=== PATIENT | male | born 1940 | race Caucasian/White ===

== ENCOUNTER 2022-04-19 07:49 | Emergency (ER) | payer MEDICARE, SELFPAY ==
--- NOTE | 2022-04-19 07:45 | RT.EKG_ITS ---
APPROVED REPORT Exam: Resting ECG Reason for Exam: shoulder/back pain Patient Location: E HR:80 bpm ECG Measurements Heart Rate 80 AXIS RI [id number] P [id number] QRSd 159 QRS 100 QT 417 T -20 QTc 482 Conclusion Atrial flutter with predominant 3:1 AV block...A-rate 238, multiple Ps RBBB and LPFB...QRSd >120mS, axis(90,210) Inferior infarct, age indeterminate...Q>35mS, T neg, II III aVF
[2022-04-19 07:54] VITALS: BP 206/82; PULSE 86; RESP 18; TEMP 36.7; O2SAT 97
[2022-04-19 07:58] VITALS: BP 155/111; PULSE 87
[2022-04-19 07:59] VITALS: BP 173/107; PULSE 79
--- NOTE | 2022-04-19 08:33 | ED.GENADUL_ITS ---
Discharge Plan Disposition Patient Disposition: Home Condition: Stable Discharge Details Clinical Impression: Left paraspinal back pain, Hypertension, Hypomagnesemia Primary Care Provider: Anamaria Garcia ED Provider: Harshil Whitehead Home Meds and New Rx's Prescriptions: New cyclobenzaprine 5 mg tablet 5 mg PO TID PRN (Reason: muscle spasm) Qty: 15 0RF Continued azathioprine 50 MG tablet 150 mg PO DAILY clopidogrel [Plavix] 75 MG tablet 75 mg PO DAILY aspirin [Aspir-81] 81 MG tablet,delayed release (DR/EC) 81 mg PO DAILY levothyroxine 100 MCG tablet 100 mcg PO DAILY methotrexate sodium 2.5 MG tablet 15 mg PO DIRECTED nitroglycerin [Nitrostat] 0.4 MG tablet, sublingual 0.4 mg Sublingual DIRECTED PRN folic acid 1 MG tablet 1 mg PO DAILY dorzolamide-timolol 10 ML drops 10 ml OD BID geriatric ossiubwj-qevg-tebs [Complete Senior] 1 EACH tablet 1 ea PO DAILY cholecalciferol (vitamin D3) 1,000 UNIT tablet 1,000 unit PO BID acetaminophen [Tylenol] 325 MG tablet 650 mg PO Q4H PRN PRN0RF ipratropium-albuterol 3 ML solution for nebulization 3 ml UPD Q6H PRN PRN0RF polyethylene glycol 3350 17 GM powder in packet 17 gm PO DAILY PRN PRN (Reason: Constipation) 0RF docusate sodium [Colace] 100 MG capsule 100 mg PO TID PRN PRN0RF alum-mag hydroxide-simeth [Mag-Al Plus] 30 ML suspension 30 ml PO Q2H PRN PRN0RF insulin aspart U-100 [Novolog Flexpen U-100 Insulin] 300 UNITS/3 ML insulin pen 0 units Sub-Q 0800,1200,1700 0RF losartan 25 MG tablet 25 mg PO DAILY Qty: 0 0RF Rx Instructions: CURRENTLY ON HOLD Humulin N NPH U-100 Insulin 100 UNIT/ML suspension 100 unit SQ DIRECTED Qty: 0 0RF Label Comments: sliding scale Rx Instructions: CURRENTLY ON HOLD furosemide 20 MG tablet 20 mg PO DAILY Qty: 0 0RF Rx Instructions: CURRENTLY ON HOLD metformin 500 mg tablet 1 tab PO BID isosorbide mononitrate 30 mg tablet extended release 24 hr 1 tab PO DAILY prednisone 5 mg tablet 1 tab PO DAILY pantoprazole 20 mg tablet,delayed release (DR/EC) 1 tab PO DAILY gabapentin 100 mg capsule 1 cap PO TID Label Comments: TAKE ONE CAPSULE BY MOUTH THREE TIMES A DAY FOR NECK AND ARM PAIN /TINGLING metoprolol succinate 25 mg tablet extended release 24 hr 1 tab PO DAILY oxycodone 5 mg tablet 1 tab PO Q4H PRN Label Comments: TAKE ONE TABLET BY MOUTH EVERY 4 HOURS NEEDED FOR PAIN diclofenac sodium 1 % gel 1 applic TOPICAL BID Discharge Instructions Instructions: Hypomagnesemia (ED), Back Pain (ED) Additional Instructions: Your blood pressure today was elevated. Please be sure to follow-up with your primary care physician regarding this. Take your blood pressure medicine as prescribed. Your magnesium was slightly low today. You were given magnesium s upplementation. Please be sure to discuss this with your primary care physician. Please take ibuprofen 400 mg every 6-8 hours for the next 5 days to help with back pain. Use lidocaine patches. These are available [id number]-[id number]. Dose according to label. Please contact your primary care physician and applications intern to arrange follow- up. Call today. Return to the ER immediately for any worsening or new concerning symptoms. Referrals: Anamaria Garcia [Primary Care Provider] - Medical Decision Making -- 81yo male with multiple medical problems including history of coronary artery disease, atrial fibrillation, CHF, CVA, insulin-dependent diabetes, GERD, hypertension, inflammatory myopathy, here with pain in his left thoracic paraspinal/scapular area for the past 2 weeks with associated tingling in his left hand first webspace. Patient has focal tenderness left thoracic paraspinal that reproduces his pain. Patient had nondiagnostic cardiac work-up including negative stress test at [facility] for this discomfort. Presentation is consistent with likely musculoskeletal back pain with T1 nerve root irritation. Plan to treat with Toradol 15 mg IM and lidocaine patch. 855 --I obtained outside hospital records from [facility] and reviewed recent PCP visit documentation and recent office visit with rheumatology. Substantial additional medical history obtained including history of chronic necrotizing myositis with note of increasing CK. Will check labs including CK, CBC and chemistry. Plan to consult with rheumatology. 1279-- I spoke with applications intern on-call at [facility], she reviewed the patient's medical record, I discussed ED presentation and course, she recommends CT of the thoracic spine to rule out fracture given chronic prednisone use. She suggested potentially prescribing Flexeril and additional lidocaine patches. She recommends close outpatient follow-up and that the patient call her office to arrange timely follow-up. CT of the thoracic spine was interpreted by radiology: No fracture. No evidence of compression fracture nor other fractures of the thoracic spinal column.? No central spinal canal stenosis.? All results were discussed with the patient. Usual customary discharge instructions reviewed HPI General Mode of arrival: ambulatory . Date/Time Provider Initiated Documentation: 04/19/22 08:11 . Limitations to Documentation: no limitations . Information obtained by: patient . HPI Narrative: 81yo male here with chief complaint of left shoulder pain. Patient notes about 2 weeks ago he developed pain in his left shoulder. Pain is been present since onset. Pain described as an ache. He was initially concerned that it may be his heart and sought care at [facility]. He had a full cardiac work-up that was negative including stress test. Pain has continued. He was treating it with oxycodone that was prescribed by his PCP which did seem to help. He has run out of oxycodone. Patient denies associated shortness of breath or chest pain. He does note some associated paresthesia in his left hand first webspace. Related Data Home Medications Medication Instructions Recorded Confirmed aspirin 81 mg tablet,delayed 81 mg PO DAILY 10/24/17 04/19/22 release (Aspir-) azathioprine 50 mg tablet 150 mg PO DAILY 10/24/17 04/19/22 cholecalciferol (vitamin D3) 25 1,000 unit PO BID 10/24/17 04/19/22 mcg (1,000 unit) tablet clopidogrel 75 mg tablet (Plavix) 75 mg PO DAILY 10/24/17 04/19/22 dorzolamide 22.3 mg-timolol 6.8 10 ml OD BID 10/24/17 04/19/22 mg/mL eye drops folic acid 1 mg tablet 1 mg PO DAILY 10/24/17 10/24/17 geriatric eyccisvk-ancs-lwka 1 ea PO DAILY 10/24/17 10/24/17 (Complete Senior tablet) levothyroxine 100 mcg tablet 100 mcg PO DAILY 10/24/17 04/19/22 methotrexate sodium 2.5 mg tablet 15 mg PO DIRECTED 10/24/17 10/24/17 nitroglycerin 0.4 mg sublingual 0.4 mg sublingual DIRECTED PRN 10/24/17 04/19/22 tablet (Nitrostat) acetaminophen 325 mg tablet 650 mg PO Q4H PRN PRN 10/26/17 04/19/22 (Tylenol) aluminum-mag hydroxide-simethicone 30 ml PO Q2H PRN PRN 10/26/17 04/19/22 200 mg-200 mg-20 mg/5 mL oral susp (Mag-Al Plus) docusate sodium 100 mg capsule 100 mg PO TID PRN PRN 10/26/17 04/19/22 (Colace) furosemide 20 mg tablet 20 mg PO DAILY ##0 10/26/17 10/24/17 insulin NPH isoph U-100 human 100 100 unit SQ DIRECTED ##0 10/26/17 04/19/22 unit/mL subcutaneous suspension (Humulin N NPH U-100 Insulin (isophane susp)) insulin aspart U-100 100 unit/mL 0 units (0 mL) subcut 10/26/17 (3 mL) subcutaneous pen (Novolog 0800,1200,1700 Flexpen U-100 Insulin aspart) ipratropium 0.5 mg-albuterol 3 mg 3 ml UPD Q6H PRN PRN 10/26/17 (2.5 mg base)/3 mL nebulization soln losartan 25 mg tablet 25 mg PO DAILY ##0 10/26/17 04/19/22 polyethylene glycol 3350 17 gram 17 gm PO DAILY PRN PRN Constipation 10/26/17 04/19/22 oral powder packet cyclobenzaprine 5 mg tablet 5 mg PO TID PRN muscle spasm #15 04/19/22 tabs diclofenac sodium 1 % topical gel 1 applic topical BID 04/19/22 04/19/22 gabapentin 100 mg capsule 1 cap PO TID 04/19/22 04/19/22 isosorbide mononitrate 30 mg 1 tab PO DAILY 04/19/22 04/19/22 tablet,extended release 24 hr metformin 500 mg tablet 1 tab PO BID 04/19/22 04/19/22 metoprolol succinate 25 mg 1 tab PO DAILY 04/19/22 04/19/22 tablet,extended release 24 hr oxycodone 5 mg tablet 1 tab PO Q4H PRN 04/19/22 04/19/22 pantoprazole 20 mg tablet,delayed 1 tab PO DAILY 04/19/22 04/19/22 release prednisone 5 mg tablet 1 tab PO DAILY 04/19/22 04/19/22 Previous Rx's Medication Instructions Recorded acetaminophen 325 mg tablet 650 mg PO Q4H PRN PRN 10/26/17 (Tylenol) aluminum-mag hydroxide-simethicone 30 ml PO Q2H PRN PRN 10/26/17 200 mg-200 mg-20 mg/5 mL oral susp (Mag-Al Plus) docusate sodium 100 mg capsule 100 mg PO TID PRN PRN 10/26/17 (Colace) furosemide 20 mg tablet 20 mg PO DAILY ##0 10/26/17 insulin NPH isoph U-100 human 100 100 unit SQ DIRECTED ##0 10/26/17 unit/mL subcutaneous suspension (Humulin N NPH U-100 Insulin (isophane susp)) insulin aspart U-100 100 unit/mL 0 units (0 mL) subcut 10/26/17 (3 mL) subcutaneous pen (Novolog 0800,1200,1700 Flexpen U-100 Insulin aspart) ipratropium 0.5 mg-albuterol 3 mg 3 ml UPD Q6H PRN PRN 10/26/17 (2.5 mg base)/3 mL nebulization soln losartan 25 mg tablet 25 mg PO DAILY ##0 10/26/17 polyethylene glycol 3350 17 gram 17 gm PO DAILY PRN PRN Constipation 10/26/17 oral powder packet cyclobenzaprine 5 mg tablet 5 mg PO TID PRN muscle spasm #15 04/19/22 tabs Allergies Allergy/AdvReac Type Severity Reaction Status Date / Time atorvastatin [From Lipitor] Allergy Unverified 04/19/22 08:02 General Stated Complaint: Orthopedic KLEBER: 3 Review of Systems All systems reviewed & are unremarkable except as noted in HPI and below Constitutional Constitutional: Denies fever(s) Cardiovascular Cardiovascular: Denies chest pain and Denies dyspnea Respiratory Respiratory: Denies dyspnea Gastrointestinal Gastrointestinal: Denies abdominal pain PFSH All Active Problems (Updated 04/19/22 @ 12:31 by Harshil Whitehead MD) Left paraspinal back pain (Acute) Hypertension (Chronic) Hypomagnesemia (Acute) Social History Smoking/Tobacco Use Status: Never Smoking risk assessment performed?: Yes Alcohol Intake: never Drug use: Never Substance use type: does not use Do you feel safe at home: Yes Do you feel safe in your relationship?: Yes Exam Const General: cooperative and no acute distress HENMT Mouth: moist mucous membranes Eyes Conjunctivae: normal conjunctivae Sclera: normal sclerae Neck Neck: trachea midline and supple Resp Auscultation: clear to auscultation bilaterally, no rales, no rhonchi and no wheezes Cardio Rate: regular rate and not tachycardic Rhythm: regular rhythm GI Palpation: soft, not firm, no guarding, no masses, not rigid and nontender Back/Spine/Pelvis Back: No erythema, No warmth and other (no edema) Cervical Spine: No cervical spinal tenderness Thoracic/Lumbar Spine: paraspinal tenderness (left upper thoracic focally tender ), No thoracic spinal tenderness and No lumbar spinal tenderness Skin General skin exam: no rashes or lesions noted Neuro General: patient alert, patient awake and tone normal Extrem General: no edema Left upper extremity: shoulder/upper arm Details: inspection abnormal and normal ROM; no tenderness and no swelling and hand Details: neuromotor exam normal and neurosensory exam normal Psych Appearance: grossly normal Mental Status: mental status grossly normal Course Vital Signs Vital signs: Vital Signs Temperature 36.7 C 04/19/22 07:54 Pulse 86 04/19/22 07:54 Respiratory Rate 18 04/19/22 07:54 Blood Pressure 206/82 H 04/19/22 07:54 Pulse Oximetry 97 04/19/22 07:54 Temperature 36.7 C 04/19/22 07:54 Temperature Source Temporal Artery Scan 04/19/22 07:54 Pulse 86 04/19/22 07:54 Respiratory Rate 18 04/19/22 07:54 Respiratory Effort Non-Labored 04/19/22 08:00 Blood Pressure 206/82 H 04/19/22 07:54 Blood Pressure Position Sitting 04/19/22 07:54 Pulse Oximetry 97 04/19/22 07:54 Oxygen Delivery Method Room Air 04/19/22 07:54 Oxygen Flow Rate 0 04/19/22 07:54 Pain Level 8 04/19/22 07:54
[2022-04-19] MEDS: Ketorolac 15 MG/ML VIAL IM (08:36)
[2022-04-19] MEDS: Lidocaine 5% Patch 1 PATCH TP (08:36)
[2022-04-19 09:03] LABS: ESR 12 mm/hr (0-20)
[2022-04-19 09:05] LABS: Abs Immature Grans 0.04 10^3/uL (0.0-0.06); Absolute Basophil Count 0.05 10^3/uL (0.0-0.2); Absolute Eosinophil Count 0.35 10^3/uL (0.0-0.7); Absolute Lymphocyte Count 0.69 10^3/uL (1.2-3.4); Absolute Monocyte Count 0.75 10^3/uL (0.1-0.8); Absolute Neutrophil Count 6.46 10^3/uL (1.2-6.7); Basophils % 0.6; Eosinophils % 4.2; HCT 42.4 % (40.0-50.0); Immature Grans % 0.5; Lymphocytes % 8.3; MCH 29.9 pg (27.0-33.0); MCV 91 fL (80-95); MPV 9.3 fL (8.0-11.0); Neutrophils % 77.4; Platelet Count 197 10^3/uL (130-400); RBC 4.68 10^6/uL (4.36-5.78); RDW 13.3 % (11.8-14.1); RDW-SD 42.8 fL; WBC 8.34 10^3/uL (4.4-10.8)
[2022-04-19 09:22] LABS: ALT 30 U/L (16-63); AST 33 U/L (15-37); Albumin 3.5 g/dL (3.4-5.0); Alkaline Phosphatase 50 U/L (46-116); Anion Gap 6.6 mmol/L (3-11); BUN 16 mg/dL (7-18); Bilirubin, Total 0.4 mg/dL (0.2-1.0); C-Reactive Protein 2.83 mg/dL (0.0-0.3); CO2 31.4 mmol/L (21.0-32.0); CREATININE 1.2 mg/dL (0.70-1.30); Calcium 9.2 mg/dL (8.5-10.1); Chloride 102 mmol/L (98-107); Creatine Kinase 393 U/L (39-308); Estimated GFR 61.52 (mL/min/1.73m2); Glucose 129 mg/dL (74-106); Magnesium 1.7 mg/dL (1.8-2.4); Potassium 3.7 mmol/L (3.5-5.1); Sodium 140 mmol/L (136-145); Total Protein 7.1 g/dL (6.4-8.2)
--- NOTE | 2022-04-19 09:51 | CMPROGNOTE_ITS ---
- If Service Date Differs Date of service: 04/19/22 Time of Service: 09:51 Care Management Progress Note Russell is seen in the ED for musculoskeletal back pain with T1 nerve root irritation. At the request of ED provider, TRUMAN meets with Mr. Eng to discuss transferring his primary care physician from Dr. Garcia at [facility] to a local provider. TRUMAN assists Mr. Eng in contacting the [facility] to begin the process of transferring his care.
[2022-04-19 10:25] VITALS: BP 169/83; PULSE 71; TEMP 36.7; O2SAT 97
--- NOTE | 2022-04-19 12:07 | DI.CT_ITS ---
Exam(s) CT THORACIC SPINE WO EXAM: CT THORACIC SPINE WO CLINICAL HISTORY: left t1-4 tenderness, chronic prednisone use. TECHNIQUE: Imaging Protocol: Axial computed tomography images with coronal and sagittal reformatted images were created and reviewed. CONTRAST MATERIAL: None COMPARISON: CT CHEST WITHOUT CONTRAST from 10/25/2017 FINDINGS: Bones: There are no compression fractures of the thoracic vertebrae.. No listhesis. No central nor foraminal stenosis evident. No lytic nor blastic osseous lesions. Soft tissues: Large cyst is in noted in the superior pole right kidney. Unchanged from CT scan of 2017. IMPRESSION: No evidence of compression fracture nor other fractures of the thoracic spinal column. No central sp inal canal stenosis. Report called by myself to ER RADIATION DOSE DELIVERED: 1,120.26mGy.cm Total DLP DATA REPOSITORY: All CT scans at this facility are submitted to the National Radiology Data Registry (NRDR) Dose Index Registry (DIR) with the [employer] ([employer]). RADIATION OPTIMIZATION: All CT scans at this facility use at least one of these dose optimization te chniques: automated exposure control; mA and/or kV adjustment per patient size (includes targeted exa ms where dose is matched to clinical indication); or iterative reconstruction.
[2022-04-19 12:23] VITALS: BP 174/83; PULSE 65; TEMP 36.4; O2SAT 98
[2022-04-19] MEDS: Magnesium Oxide 400 MG TAB 800 MG PO (12:48)
== END 2022-04-19 12:58 | disposition home or self-care (01) ==
PROVIDERS: Emergency Provider Student in an Organized Health Care Education/Training Program; PCP Internal Medicine
DX: M54.6 Pain in thoracic spine (principal); M25.512 Pain in left shoulder; E83.42 Hypomagnesemia; I11.0 Hypertensive heart disease with heart failure; I50.9 Heart failure, unspecified; I25.10 Atherosclerotic heart disease of native coronary artery without angina pectoris; I48.91 Unspecified atrial fibrillation; E11.9 Type 2 diabetes mellitus without complications; Z79.4 Long term (current) use of insulin; Z79.82 Long term (current) use of aspirin; Z79.84 Long term (current) use of oral hypoglycemic drugs; Z86.73 Personal history of transient ischemic attack (TIA), and cerebral infarction without residual deficits
CPT/HCPCS: 36415; 36416; 80053; 82550; 82962; 85652; 93005; 96372; 99284; 72128; 83735; 85025; 86140; 93010; 99285; J1885

== ENCOUNTER 2022-04-22 22:35 | Emergency (ER) | payer MEDICARE, SELFPAY ==
[2022-04-22] VITALS (12 sets, daily range): BP systolic 187–207; BP diastolic 80–120; PULSE 74–85; RESP 14–21; TEMP 36.6; O2SAT 92–100
--- NOTE | 2022-04-22 22:30 | RT.EKG_ITS ---
APPROVED REPORT Exam: Resting ECG Reason for Exam: left shoulder pain Patient Location: E HR:79 bpm ECG Measurements Heart Rate 79 AXIS MI 172 P -11 QRSd 158 QRS -65 QT 431 T 67 QTc 496 Conclusion Sinus rhythm. Right bundle branch block..
--- NOTE | 2022-04-22 22:59 | W.ED.GENAD ---
Discharge Plan Disposition Patient Disposition: Home Condition: Improving Discharge Details Clinical Impression: Chronic thoracic back pain, Thoracic radiculopathy Primary Care Provider: Anamaria Garcia ED Provider: Laura Junior Home Meds and New Rx's Prescriptions: New prednisone 20 mg tablet See Rx Instructions .ROUTE .COMPLEX Qty: 18 0RF Rx Instructions: Take 3 tabs daily for 3 days, then 2 tabs daily for 3 days, then 1 tab daily for 3 days. diazepam 5 mg tablet 5 mg PO TID PRN (Reason: muscle spasm) Qty: 10 0RF No Action azathioprine 50 MG tablet 150 mg PO DAILY clopidogrel [Plavix] 75 MG tablet 75 mg PO DAILY aspirin [Aspir-81] 81 MG tablet,delayed release (DR/EC) 81 mg PO DAILY levothyroxine 100 MCG tablet 100 mcg PO DAILY methotrexate sodium 2.5 MG tablet 15 mg PO DIRECTED nitroglycerin [Nitrostat] 0.4 MG tablet, sublingual 0.4 mg Sublingual DIRECTED PRN folic acid 1 MG tablet 1 mg PO DAILY dorzolamide-timolol 10 ML drops 10 ml OD BID Complete Senior 1 EACH tablet 1 ea PO DAILY cholecalciferol (vitamin D3) 1,000 UNIT tablet 1,000 unit PO BID acetaminophen [Tylenol] 325 MG tablet 650 mg PO Q4H PRN PRN0RF ipratropium-albuterol 3 ML solution for nebulization 3 ml UPD Q6H PRN PRN0RF polyethylene glycol 3350 17 GM powder in packet 17 gm PO DAILY PRN PRN (Reason: Constipation) 0RF docusate sodium [Colace] 100 MG capsule 100 mg PO TID PRN PRN0RF alum-mag hydroxide-simeth [Mag-Al Plus] 30 ML suspension 30 ml PO Q2H PRN PRN0RF insulin aspart U-100 [Novolog Flexpen U-100 Insulin] 300 UNITS/3 ML insulin pen 0 units Sub-Q 0800,1200,1700 0RF losartan 25 MG tablet 25 mg PO DAILY Qty: 0 0RF Rx Instructions: CURRENTLY ON HOLD Humulin N NPH U-100 Insulin 100 UNIT/ML suspension 100 unit SQ DIRECTED Qty: 0 0RF Label Comments: sliding scale Rx Instructions: CURRENTLY ON HOLD furosemide 20 MG tablet 20 mg PO DAILY Qty: 0 0RF Rx Instructions: CURRENTLY ON HOLD metformin 500 mg tablet 1 tab PO BID prednisone 5 mg tablet 1 tab PO DAILY pantoprazole 20 mg tablet,delayed release (DR/EC) 1 tab PO DAILY gabapentin 100 mg capsule 1 cap PO TID Label Comments: TAKE ONE CAPSULE BY MOUTH THREE TIMES A DAY FOR NECK AND ARM PAIN /TINGLING metoprolol succinate 25 mg tablet extended release 24 hr 1 tab PO DAILY diclofenac sodium 1 % gel 1 applic TOPICAL BID Discharge Instructions Additional Instructions: It is suspected that your pain is musculoskeletal or neuropathic in origin. Prescriptions for steroids and muscle relaxers have been sent electronically to your pharmacy. Take Tylenol as needed and directed for pain. Take the oxycodone for pain not relieved with Tylenol or muscle relaxers. Take caution when taking the oxycodone and Valium together as this can cause increased drowsiness and increased risk of respiratory depression and . You have been placed on care management's list to arrange for a follow-up appointment for reevaluation and to establish care at [facility] and for referral for outpatient MRI if indicated. Return to the emergency department with any worsening or new concerning symptoms. Discharge Data Discharge Date/Time-TO BE ENTERED AT DEPARTURE: 04/23/22 02:08 Discharge Physician: Laura Junior Medical Decision Making 2255 -- 81yo M w/ a h/o multiple medical problems including history of coronary artery disease, atrial fibrillation, CHF, CVA, insulin-dependent diabetes, GERD, hypertension, inflammatory myopathy seen here 3 days ago for the same complaint presents with pain between shoulder blades moving up to his neck. Blood pressure hypertensive, may be a component of pain, will continue to monitor. Patient had lab work which noted low magnesium and a CT thoracic spine which was negative for acute findings when seen here in the ED 3 days ago for the same complaint. He was sent home with Lidoderm patches and Flexeril. Patient has tenderness to palpation of the midline T-spine in the mid scapular line. He also has bilateral paraspinal Thoracics tenderness. The area appears normal to inspection without rash, cellulitis or trauma. The pain is reproducible with left head sidebending, rotation and extension of head. Pain is also reproducible with movement in bed and movement of left upper extremity. Pain appears consistent with a musculoskeletal or neuropathic origin. Discussed with patient that he likely needs an MRI of his thoracic spine. Considering his age and history, will obtain an EKG and chest x-ray. As he had labs done 3 days ago, do not see an indication for repeat lab work at this time. History of presentation does not appear consistent with ACS, PE or dissection. Will give a dose of oral oxycodone, Valium and prednisone and reassess. 0130 --patient reassessed and he feels much better and feels comfortable going home. Prescriptions for steroids and muscle relaxers sent electronically to his pharmacy. We will give oxycodone bottle to go for breakthrough pain. Patient was placed on care management's list to ensure that he is getting close follow-up with plan to establish care with [facility] and for consideration for outpatient MRI if his symptoms persist or worsen. Usual and customary return precautions given prior to discharge. His blood pressure is high at 193/80. He states he did not take his blood pressure medication today. He denies any anterior chest pain or headache. Medical Records Medical records reviewed: Yes I reviewed the patient's medical records. ECG Data Attestation: I personally reviewed and interpreted this ECG (s) as follows: Interpretation: Rate of 79, sinus, right bundle branch block, no STEMI, no change from previous EKG. HPI General Mode of arrival: ambulatory. Date/Time Provider Initiated Documentation: 04/22/22 22:47. Limitations to Documentation: no limitations. Information obtained by: patient. HPI Narrative: Patient is a 81-year-old male with a history of multiple medical problems including history of coronary artery disease, atrial fibrillation, CHF, CVA, insulin-dependent diabetes, GERD, hypertension, inflammatory myopathy presents the ED with a complaint of pain between shoulder blades now radiating up to his neck. Patient was seen here 3 days ago for the same complaint and had lab work which noted low magnesium and a CT thoracic spine which is negative for acute findings and he was discharged home with Lidoderm patches and Flexeril. Patient states for the past month he has had mid scapular back pain with radiation to his left arm which also causes tingling in his left hand. He states the pain is worse with movement of his arm and head. He denies any known injury. He states he is right-handed. He states he saw his primary care doctor Dr. Garcia for this complaint a month ago and was prescribed steroids without significant relief. He denies any relief with the Lidoderm patches and Flexeril. Patient drove himself to the ED but states he can get a ride home. He denies any fever, sore throat, cough, chest pain, difficulty breathing, abdominal pain, vomiting, diarrhea or dizziness. Patient took Tylenol 4 hours ago without relief. Related Data Home Medications Medication Instructions Recorded Confirmed aspirin 81 mg tablet,delayed 81 mg PO DAILY 10/24/17 04/23/22 release (Aspir-) azathioprine 50 mg tablet 150 mg PO DAILY 10/24/17 04/23/22 cholecalciferol (vitamin D3) 25 1,000 unit PO BID 10/24/17 04/23/22 mcg (1,000 unit) tablet clopidogrel 75 mg tablet (Plavix) 75 mg PO DAILY 10/24/17 04/23/22 dorzolamide 22.3 mg-timolol 6.8 10 ml OD BID 10/24/17 04/23/22 mg/mL eye drops folic acid 1 mg tablet 1 mg PO DAILY 10/24/17 04/23/22 geriatric [id number] 1 ea PO DAILY 10/24/17 04/23/22 (Complete Senior tablet) levothyroxine 100 mcg tablet 100 mcg PO DAILY 10/24/17 04/23/22 methotrexate sodium 2.5 mg tablet 15 mg PO DIRECTED 10/24/17 04/23/22 nitroglycerin 0.4 mg sublingual 0.4 mg sublingual DIRECTED PRN 10/24/17 04/23/22 tablet (Nitrostat) acetaminophen 325 mg tablet 650 mg PO Q4H PRN PRN 10/26/17 04/23/22 (Tylenol) aluminum-mag hydroxide-simethicone 30 ml PO Q2H PRN PRN 10/26/17 04/23/22 200 mg-200 mg-20 mg/5 mL oral susp (Mag-Al Plus) docusate sodium 100 mg capsule 100 mg PO TID PRN PRN 10/26/17 04/23/22 (Colace) furosemide 20 mg tablet 20 mg PO DAILY ##0 10/26/17 04/23/22 insulin NPH isoph U-100 human 100 100 unit SQ DIRECTED ##0 10/26/17 04/23/22 unit/mL subcutaneous suspension (Humulin N NPH U-100 Insulin (isophane susp)) insulin aspart U-100 100 unit/mL 0 units (0 mL) subcut 10/26/17 04/23/22 (3 mL) subcutaneous pen (Novolog 0800,1200,1700 Flexpen U-100 Insulin aspart) ipratropium 0.5 mg-albuterol 3 mg 3 ml UPD Q6H PRN PRN 10/26/17 04/23/22 (2.5 mg base)/3 mL nebulization soln losartan 25 mg tablet 25 mg PO DAILY ##0 10/26/17 04/23/22 polyethylene glycol 3350 17 gram 17 gm PO DAILY PRN PRN Constipation 10/26/17 04/23/22 oral powder packet diclofenac sodium 1 % topical gel 1 applic topical BID 04/19/22 04/23/22 gabapentin 100 mg capsule 1 cap PO TID 04/19/22 04/23/22 metformin 500 mg tablet 1 tab PO BID 04/19/22 04/23/22 metoprolol succinate 25 mg 1 tab PO DAILY 04/19/22 04/23/22 tablet,extended release 24 hr pantoprazole 20 mg tablet,delayed 1 tab PO DAILY 04/19/22 04/23/22 release prednisone 5 mg tablet 1 tab PO DAILY 04/19/22 04/23/22 diazepam 5 mg tablet 5 mg PO TID PRN muscle spasm #10 04/23/22 tabs prednisone 20 mg tablet See Rx Instructions .Route 04/23/22 .COMPLEX #18 tabs Previous Rx's Medication Instructions Recorded acetaminophen 325 mg tablet 650 mg PO Q4H PRN PRN 10/26/17 (Tylenol) aluminum-mag hydroxide-simethicone 30 ml PO Q2H PRN PRN 10/26/17 200 mg-200 mg-20 mg/5 mL oral susp (Mag-Al Plus) docusate sodium 100 mg capsule 100 mg PO TID PRN PRN 10/26/17 (Colace) furosemide 20 mg tablet 20 mg PO DAILY ##0 10/26/17 insulin NPH isoph U-100 human 100 100 unit SQ DIRECTED ##0 10/26/17 unit/mL subcutaneous suspension (Humulin N NPH U-100 Insulin (isophane susp)) insulin aspart U-100 100 unit/mL 0 units (0 mL) subcut 10/26/17 (3 mL) subcutaneous pen (Novolog 0800,1200,1700 Flexpen U-100 Insulin aspart) ipratropium 0.5 mg-albuterol 3 mg 3 ml UPD Q6H PRN PRN 10/26/17 (2.5 mg base)/3 mL nebulization soln losartan 25 mg tablet 25 mg PO DAILY ##0 10/26/17 polyethylene glycol 3350 17 gram 17 gm PO DAILY PRN PRN Constipation 10/26/17 oral powder packet diazepam 5 mg tablet 5 mg PO TID PRN muscle spasm #10 04/23/22 tabs prednisone 20 mg tablet See Rx Instructions .Route 04/23/22 .COMPLEX #18 tabs Allergies Allergy/AdvReac Type Severity Reaction Status Date / Time atorvastatin [From Lipitor] Allergy Unverified 04/19/22 08:02 General Stated Complaint: Nk/Back Pain KLEBER: 3 Review of Systems All systems reviewed & are unremarkable except as noted in HPI and below Constitutional Constitutional: Reports as per HPI, Denies chills and Denies fever(s) Eyes Eyes: Denies blurry vision ENT Ears, Nose, Mouth, and Throat: Denies dizziness, Reports neck pain, Denies sore throat and Denies throat swelling Cardiovascular Cardiovascular: Denies chest pain and Denies dyspnea Respiratory Respiratory: Denies cough and Denies dyspnea Gastrointestinal Gastrointestinal: Denies abdominal pain, Denies diarrhea and Denies vomiting Genitourinary Genitourinary: Denies hematuria and Denies dysuria Musculoskeletal Musculoskeletal: Reports back pain, Reports neck pain and Denies numbness Integumentary/Breasts Skin/Breast: Denies lesions and Denies rash Neurologic Neurologic: Denies dizziness, Denies localized weakness and Denies numbness Allergic/Immunologic Allergic/Immunologic: Denies throat swelling PFSH All Active Problems (Updated 04/23/22 @ 01:34 by Laura Junior DO) Chronic thoracic back pain (Acute) Thoracic radiculopathy (Acute) Left paraspinal back pain (Acute) Hypertension (Chronic) Hypomagnesemia (Acute) Medical History (Updated 04/23/22 @ 01:34 by Laura Junior DO) Diabetes HTN (hypertension) Social History Smoking/Tobacco Use Status: Never Smoking risk assessment performed?: Yes Alcohol Intake: never Drug use: Never Substance use type: does not use Do you feel safe at home: Yes Do you feel safe in your relationship?: Yes Exam Const General: cooperative, healthy appearing and no acute distress HENMT Head: normal to inspection Face and sinus: normal facial exam Eyes General: appearance normal, both eyes and all related structures Pupils: PERRL EOM: EOM intact bilaterally Neck Neck: normal visual inspection and No submandibular swelling Lymphatic: no lymphadenopathy noted Chest Chest: normal inspection of the chest and no tenderness Resp Effort & Inspection: normal respiratory effort and able to speak in complete sentences Auscultation: clear to auscultation bilaterally Cardio Rate: regular rate Rhythm: regular rhythm GI Inspection: normal to inspection Palpation: soft, not firm, not rigid and nontender Auscultation: normal bowel sounds Male General Exam: Yes normal external exam Back/Spine/Pelvis Thoracic/Lumbar Spine: thoracic and lumbar spine normal to inspection Back/spine/pelvis image: 1. Area appears normal to inspection. Pain is reproducible with movement of head to left and left sidebending in addition to extension of head. The area is tender to palpation in the midline thoracic spine and bilateral paraspinal region. There is no erythema, edema, ecchymosis, rash or lesions. Skin General skin exam: no rashes or lesions noted Neuro General: patient alert, patient awake and patient oriented x3 Cognition: normal cognition Speech: speech normal Motor: muscle tone normal throughout and strength 5/5 throughout Sensory Exam: no sensory deficits noted Other: Muscle strength 5/5 bilateral upper extremities. Normal motor function along bicep/tricep/radial/median/ulnar nerve distribution. Normal capillary refill. Bilateral radial and ulnar pulses intact. Extrem General: normal to inspection, full ROM, capillary refill normal, no calf tenderness bilaterally and no edema Psych Appearance: grossly normal Mental Status: mental status grossly normal Speech and Movement: speech and movement normal Affect: normal affect Course Vital Signs Vital signs: Vital Signs Temperature 98 F 04/22/22 22:43 Pulse 85 04/22/22 22:43 Respiratory Rate 18 04/22/22 22:43 Blood Pressure 196/120 H 04/22/22 22:43 Pulse Oximetry 100 04/22/22 22:43 Temperature 98 F 04/22/22 22:43 Temperature Source Tympanic 04/22/22 22:43 Pulse 85 04/22/22 22:43 Respiratory Rate 18 04/22/22 22:43 Respiratory Effort 12/30/22 22:49 Blood Pressure 196/120 H 04/22/22 22:43 Blood Pressure Position Supine 04/22/22 22:43 Pulse Oximetry 100 04/22/22 22:43 Oxygen Delivery Method Room Air 04/22/22 22:43 Oxygen Flow Rate 0 04/22/22 22:43 Pain Level 8 04/22/22 22:43
--- NOTE | 2022-04-22 23:00 | DI.RAD_ITS ---
Exam(s) XR PORTABLE CHEST AP EXAM: XR PORTABLE CHEST AP CLINICAL HISTORY: mid back pain,r/o acute dz/widened mediastinum TECHNIQUE: 2D digital imaging was performed. COMPARISON: CT CHEST WITHOUT CONTRAST from 10/25/2017 FINDINGS: Leads overlie the chest. LUNGS: Not well inflated but clear. No pleural abnormality seen. HEART: Mildly enlarged versus projection and poor inflation.. Status post CABG. AORTA: Normal diameter. BONES: Sternal wires. Degenerative changes shoulders and spine. Soft tissues: Unremarkable. IMPRESSION: No acute findings. DATA REPOSITORY: RADIATION DOSE DELIVERED:
[2022-04-22] MEDS: predniSONE 20 MG TAB 60 MG PO (23:23)
[2022-04-22] MEDS: diazePAM 5 MG TAB PO (23:23)
[2022-04-22] MEDS: oxyCODONE 5 MG TAB PO (23:24)
[2022-04-23] VITALS (11 sets, daily range): BP systolic 186–206; BP diastolic 80–94; PULSE 66–80; RESP 8–19; O2SAT 92–97
--- NOTE | 2022-04-23 00:11 | DI.VRAD_ITS ---
PROCEDURE INFORMATION: Exam: XR Chest Exam date and time: 04/22/2022 11:09 PM Age: 81 years old Clinical indication: Other: Mid back pain, R/O acute dz/widened mediastinum TECHNIQUE: Imaging protocol: Radiologic exam of the chest. Views: 1 view. COMPARISON: CT CHEST WITHOUT CONTRAST 10/25/2017 2:26 PM FINDINGS: Lungs: The lung volumes with mild bibasilar atelectasis or infiltrate. Pleural spaces: No pleural effusion. No pneumothorax. Heart/Mediastinum: The cardiac silhouette is mildly enlarged. Probable CABG. No significant widening of the mediastinum. Bones/joints: No acute osseous abnormality. Median sternotomy wires. IMPRESSION: Low lung volumes with mild bibasilar atelectasis or infiltrate. Dictated and Authenticated by: Francy Pfeiffer MD. Ordering:BENEDICT Sanchez MD
== END 2022-04-23 02:08 | disposition home or self-care (01) ==
PROVIDERS: Emergency Provider Physician Assistant; PCP Internal Medicine
DX: M54.14 Radiculopathy, thoracic region (principal); I50.9 Heart failure, unspecified; E11.9 Type 2 diabetes mellitus without complications; I11.0 Hypertensive heart disease with heart failure; E83.42 Hypomagnesemia; I45.10 Unspecified right bundle-branch block
CPT/HCPCS: 93005; 99284; 71045; 93010; J7512

== ENCOUNTER 2022-08-24 15:59 | Outpatient (REF) | payer MEDICARE, SELFPAY ==
[2022-08-24 22:54] LABS: ALT 50 U/L (16-63); AST 39 U/L (15-37); Albumin 4.1 g/dL (3.4-5.0); Alkaline Phosphatase 60 U/L (46-116); Anion Gap 9.8 mmol/L (3-11); BUN 25 mg/dL (7-18); Bilirubin, Total 0.7 mg/dL (0.2-1.0); C-Reactive Protein 1.51 mg/dL (0.0-0.3); CO2 29.2 mmol/L (21.0-32.0); CREATININE 1.3 mg/dL (0.70-1.30); Calcium 9.5 mg/dL (8.5-10.1); Chloride 102 mmol/L (98-107); Estimated GFR 55.53 (mL/min/1.73m2); Glucose 115 mg/dL (74-106); Potassium 5.2 mmol/L (3.5-5.1); Sodium 141 mmol/L (136-145); TSH (W/Ref FT4) 0.89 uIU/mL (0.36-3.74); Total Protein 7.7 g/dL (6.4-8.2); Vitamin B12 562 pg/mL (193-986)
[2022-08-24 23:09] LABS: Creatine Kinase 361 U/L (39-308)
[2022-08-24 23:13] LABS: Vitamin D 25 Total > 150 ng/mL (30-100)
== END 2022-08-24 16:00 | disposition home or self-care (01) ==
LOC: NCHCN 15:59
PROVIDERS: PCP Internal Medicine; Visit Provider Family Medicine
DX: I10 Essential (primary) hypertension; I73.9 Peripheral vascular disease, unspecified
CPT/HCPCS: 80053; 82306; 82550; 82607; 84443; 86140

== ENCOUNTER 2022-11-02 14:06 | Outpatient (REF) | payer MEDICARE, SELFPAY ==
[2022-11-02 15:36] LABS: ALT 39 U/L (16-63); AST 31 U/L (15-37); Albumin 3.9 g/dL (3.4-5.0); Alkaline Phosphatase 50 U/L (46-116); Anion Gap 8.2 mmol/L (3-11); BUN 24 mg/dL (7-18); Bilirubin, Total 0.6 mg/dL (0.2-1.0); CO2 29.8 mmol/L (21.0-32.0); CREATININE 1.4 mg/dL (0.70-1.30); Calcium 9.3 mg/dL (8.5-10.1); Chloride 101 mmol/L (98-107); Creatine Kinase 425 U/L (39-308); Estimated GFR 50.81 (mL/min/1.73m2); Glucose 199 mg/dL (74-106); Potassium 5.1 mmol/L (3.5-5.1); Sodium 139 mmol/L (136-145); Total Protein 7.2 g/dL (6.4-8.2)
[2022-11-02 16:07] LABS: Vitamin D 25 Total > 150 ng/mL (30-100)
== END 2022-11-02 14:07 | disposition home or self-care (01) ==
LOC: NCHCN 14:06
PROVIDERS: PCP Internal Medicine; Visit Provider Family Medicine
DX: E55.9 Vitamin D deficiency, unspecified (principal); I10 Essential (primary) hypertension; E11.9 Type 2 diabetes mellitus without complications; I25.10 Atherosclerotic heart disease of native coronary artery without angina pectoris
CPT/HCPCS: 80053; 82306; 82550

== ENCOUNTER 2022-11-07 15:08 | Outpatient (REF) | payer MEDICARE, SELFPAY ==
[2022-11-07 15:15] LABS: Abs Immature Grans 0.17 10^3/uL (0.0-0.06); Absolute Basophil Count 0.07 10^3/uL (0.0-0.2); Absolute Eosinophil Count 0.18 10^3/uL (0.0-0.7); Absolute Lymphocyte Count 0.65 10^3/uL (1.2-3.4); Absolute Monocyte Count 0.82 10^3/uL (0.1-0.8); Absolute Neutrophil Count 7.03 10^3/uL (1.2-6.7); Basophils % 0.8; HCT 40.7 % (40.0-50.0); HGB 13.1 g/dL (13.5-17.5); Immature Grans % 1.9; Lymphocytes % 7.3; MCH 32.2 pg (27.0-33.0); MCHC 32.2 % (32.0-36.0); MCV 100 fL (80-95); MPV 9.7 fL (8.0-11.0); Monocytes % 9.2; Neutrophils % 78.8; Platelet Count 180 10^3/uL (130-400); RBC 4.07 10^6/uL (4.36-5.78); RDW-SD 44.5 fL; WBC 8.92 10^3/uL (4.4-10.8)
[2022-11-07 21:46] LABS: Rheumatoid Factor <8.6 IU/mL (<12.0)
[2022-11-08 14:37] LABS: Albumin 56.4 % (55.8-66.1); Albumin g/dL 3.7 g/dL (3.6-5.2); Alpha 1 g/dL 0.34 g/dL (0.15-0.40); Alpha 2 g/dL 0.98 g/dL (0.50-1.00); Beta g/dL 0.75 g/dL (0.60-1.20); Gamma g/dL 0.82 g/dL (0.60-1.60); Total Protein 6.6 g/dL (6.3-8.2)
== END 2022-11-07 15:09 | disposition home or self-care (01) ==
LOC: NCHCN 15:08
PROVIDERS: PCP Internal Medicine; Visit Provider Family Medicine
DX: E67.8 Other specified hyperalimentation (principal)
CPT/HCPCS: 84165; 85025; 86431

== ENCOUNTER 2022-12-15 11:16 | Outpatient (REF) | payer MEDICARE, SELFPAY ==
[2022-12-15 15:55] LABS: Hemoglobin A1C 6.8 % (<5.7)
[2022-12-15 16:36] LABS: Calculated LDL 123 mg/dL (<100); Cholesterol 192 mg/dL (<200); HDL Cholesterol 59 mg/dL (40-60); Triglyceride 50 mg/dL (<150)
== END 2022-12-15 11:17 | disposition home or self-care (01) ==
LOC: NCHCN 11:16
PROVIDERS: PCP Internal Medicine; Visit Provider Family Medicine
DX: E11.9 Type 2 diabetes mellitus without complications (principal); E78.5 Hyperlipidemia, unspecified
CPT/HCPCS: 80061; 83036

== ENCOUNTER 2023-02-15 12:43 | Outpatient (REF) | payer MEDICARE, SELFPAY ==
[2023-02-15 16:04] LABS: HCT 37.2 % (40.0-50.0); HGB 12.1 g/dL (13.5-17.5); MCHC 32.5 % (32.0-36.0); MCV 101 fL (80-95); MPV 10.3 fL (8.0-11.0); Platelet Count 211 10^3/uL (130-400); RBC 3.67 10^6/uL (4.36-5.78); RDW 17.9 % (11.8-14.1); RDW-SD 66.1 fL; WBC 8.91 10^3/uL (4.4-10.8)
[2023-02-15 16:41] LABS: Anion Gap 10.8 mmol/L (3-11); BUN 26 mg/dL (7-18); CO2 26.2 mmol/L (21.0-32.0); CREATININE 1.2 mg/dL (0.70-1.30); Calcium 9.7 mg/dL (8.5-10.1); Chloride 105 mmol/L (98-107); Estimated GFR 61.13 (mL/min/1.73m2); Glucose 176 mg/dL (74-106); Potassium 4.9 mmol/L (3.5-5.1); Sodium 142 mmol/L (136-145); TSH (W/Ref FT4) 0.66 uIU/mL (0.36-3.74)
[2023-02-15 16:48] LABS: Folate > 20.0 ng/mL (8.6-20.0)
[2023-02-15 18:00] LABS: Vitamin D 25 Total > 150 ng/mL (30-100)
[2023-02-16 17:07] LABS: PHOSPHORUS 3.1 mg/dL (2.6-4.7)
[2023-02-17 20:42] LABS: Parathyroid Hormone,Intact 21 pg/mL (19-88)
[2023-02-21 15:43] LABS: 1,25-Dihydroxyvitamin D 18 pg/mL (18-64)
== END 2023-02-15 12:44 | disposition home or self-care (01) ==
LOC: NCHCN 12:43
PROVIDERS: PCP Internal Medicine; Visit Provider Family Medicine
DX: D53.9 Nutritional anemia, unspecified (principal); E67.3 Hypervitaminosis D; E11.9 Type 2 diabetes mellitus without complications; R94.4 Abnormal results of kidney function studies
CPT/HCPCS: 80048; 82306; 85027; 82652; 82746; 83970; 84100; 84443

== ENCOUNTER 2023-05-18 12:10 | Outpatient (REF) | payer MEDICARE, SELFPAY ==
[2023-05-18 14:49] LABS: Abs Immature Grans 0.09 10^3/uL (0.0-0.06); Absolute Basophil Count 0.05 10^3/uL (0.0-0.2); Absolute Eosinophil Count 0.12 10^3/uL (0.0-0.7); Absolute Lymphocyte Count 0.35 10^3/uL (1.2-3.4); Absolute Monocyte Count 0.63 10^3/uL (0.1-0.8); Absolute Neutrophil Count 4.52 10^3/uL (1.2-6.7); Basophils % 0.9; Eosinophils % 2.1; HCT 35.4 % (40.0-50.0); HGB 11.7 g/dL (13.5-17.5); Immature Grans % 1.6; Lymphocytes % 6.1; MCH 36.2 pg (27.0-33.0); MCHC 33.1 % (32.0-36.0); MPV 9.8 fL (8.0-11.0); Monocytes % 10.9; Neutrophils % 78.4; Platelet Count 234 10^3/uL (130-400); RBC 3.23 10^6/uL (4.36-5.78); RDW-SD 72.7 fL; WBC 5.76 10^3/uL (4.4-10.8)
[2023-05-18 15:00] LABS: MCV 110 fL (80-95)
[2023-05-18 15:29] LABS: ALT 45 U/L (16-63); AST 40 U/L (15-37); Albumin 3.8 g/dL (3.4-5.0); Alkaline Phosphatase 32 U/L (46-116); BUN 24 mg/dL (7-18); Bilirubin, Total 0.8 mg/dL (0.2-1.0); C-Reactive Protein 0.44 mg/dL (0.0-0.3); CREATININE 1.2 mg/dL (0.70-1.30); Calcium 9.9 mg/dL (8.5-10.1); Chloride 105 mmol/L (98-107); Creatine Kinase 675 U/L (39-308); Estimated GFR 61.13 (mL/min/1.73m2); Glucose 152 mg/dL (74-106); Potassium 5.6 mmol/L (3.5-5.1); Sodium 144 mmol/L (136-145); TSH (W/Ref FT4) 0.68 uIU/mL (0.36-3.74)
== END 2023-05-18 12:11 | disposition home or self-care (01) ==
LOC: NCHCN 12:10
PROVIDERS: PCP Internal Medicine; Visit Provider Family Medicine
DX: E03.9 Hypothyroidism, unspecified (principal); E11.9 Type 2 diabetes mellitus without complications; E78.5 Hyperlipidemia, unspecified; M60.89 Other myositis, multiple sites; D53.9 Nutritional anemia, unspecified
CPT/HCPCS: 80053; 82550; 84443; 85025; 86140

== ENCOUNTER 2023-05-22 14:39 | Outpatient (REF) | payer MEDICARE, SELFPAY ==
[2023-05-22 15:32] LABS: Anion Gap 12.5 mmol/L (3-11); BUN 33 mg/dL (7-18); CO2 25.5 mmol/L (21.0-32.0); CREATININE 1.3 mg/dL (0.70-1.30); Calcium 9.8 mg/dL (8.5-10.1); Chloride 105 mmol/L (98-107); Estimated GFR 55.53 (mL/min/1.73m2); Glucose 172 mg/dL (74-106); Potassium 4.6 mmol/L (3.5-5.1); Sodium 143 mmol/L (136-145)
== END 2023-05-22 14:40 | disposition home or self-care (01) ==
LOC: NCHCN 14:39
PROVIDERS: PCP Internal Medicine; Visit Provider Family Medicine
DX: I10 Essential (primary) hypertension (principal)
CPT/HCPCS: 80048

== ENCOUNTER 2023-10-04 14:32 | Outpatient (REF) | payer MEDICARE, SELFPAY ==
[2023-10-04 15:31] LABS: Abs Immature Grans 0.09 10^3/uL (0.0-0.06); Absolute Basophil Count 0.03 10^3/uL (0.0-0.2); Absolute Eosinophil Count 0.06 10^3/uL (0.0-0.7); Absolute Lymphocyte Count 0.16 10^3/uL (1.2-3.4); Absolute Monocyte Count 0.29 10^3/uL (0.1-0.8); Absolute Neutrophil Count 5.94 10^3/uL (1.2-6.7); Basophils % 0.5 %; Eosinophils % 0.9 %; HCT 32.6 % (40.0-50.0); HGB 10.6 g/dL (13.5-17.5); Immature Grans % 1.4 %; Lymphocytes % 2.4 %; MCH 37.1 pg (27.0-33.0); MCHC 32.5 % (32.0-36.0); MCV 114 fL (80-95); MPV 10.3 fL (8.0-11.0); Monocytes % 4.4 %; Neutrophils % 90.4 %; Platelet Count 154 10^3/uL (130-400); RBC 2.86 10^6/uL (4.36-5.78); RDW 16.5 % (11.8-14.1); RDW-SD 70.4 fL; WBC 6.57 10^3/uL (4.4-10.8)
[2023-10-04 15:37] LABS: Hemoglobin A1C 6.6 % (<5.7)
[2023-10-04 15:56] LABS: ALT 92 U/L (16-63); AST 61 U/L (15-37); Albumin 2.6 g/dL (3.4-5.0); Alkaline Phosphatase 56 U/L (46-116); Anion Gap 7.1 mmol/L (3-11); BUN 22 mg/dL (7-18); Bilirubin, Total 0.4 mg/dL (0.2-1.0); CO2 28.9 mmol/L (21.0-32.0); CREATININE 0.9 mg/dL (0.70-1.30); Calcium 8.9 mg/dL (8.5-10.1); Chloride 104 mmol/L (98-107); Glucose 121 mg/dL (74-106); Magnesium 1.1 mg/dL (1.8-2.4); Potassium 4.8 mmol/L (3.5-5.1); Sodium 140 mmol/L (136-145); TSH 4.08 uIU/Ml (0.36-3.74); Total Protein 5.4 g/dL (6.4-8.2)
[2023-10-04 16:01] LABS: Anisocytosis 1+; Diff Comment RBC Morph Reviewed; Macrocytosis 2+; Poikilocytes 1+
[2023-10-04 16:12] LABS: Vitamin D 25 Total > 150 ng/mL (30-100)
== END 2023-10-04 14:33 | disposition home or self-care (01) ==
LOC: LBN 14:32
PROVIDERS: PCP Internal Medicine; Visit Provider Family Medicine
DX: E83.42 Hypomagnesemia; E78.5 Hyperlipidemia, unspecified; E03.9 Hypothyroidism, unspecified; Z79.84 Long term (current) use of oral hypoglycemic drugs
CPT/HCPCS: 80053; 82306; 83036; 83735; 84443; 85025

== ENCOUNTER 2023-10-16 18:49 | Emergency (ER) | payer MEDICARE, SELFPAY ==
[2023-10-16 19:07] VITALS: BP 199/89; PULSE 65; RESP 18; TEMP 36.7
--- NOTE | 2023-10-16 19:53 | ED.GENADUL_ITS ---
Discharge Plan Disposition Patient Disposition: Home Discharge Details Clinical Impression: Bronchitis Primary Care Provider: [facility] Garcia ED Provider: Scooter Redding [place] Meds and New Rx's Prescriptions: Continued azathioprine 50 MG tablet 150 mg PO DAILY clopidogrel [Plavix] 75 MG tablet 75 mg PO DAILY aspirin [Aspir-81] 81 MG tablet,delayed release (DR/EC) 81 mg PO DAILY levothyroxine 100 MCG tablet 100 mcg PO DAILY methotrexate sodium 2.5 MG tablet 15 mg PO DIRECTED nitroglycerin [Nitrostat] 0.4 MG tablet, sublingual 0.4 mg Sublingual DIRECTED PRN folic acid 1 MG tablet 1 mg PO DAILY dorzolamide-timolol 10 ML drops 10 ml OD BID Complete Senior 1 EACH tablet 1 ea PO DAILY cholecalciferol (vitamin D3) 1,000 UNIT tablet 1,000 unit PO BID acetaminophen [Tylenol] 325 MG tablet 650 mg PO Q4H PRN PRN0RF ipratropium-albuterol 3 ML solution for nebulization 3 ml UPD Q6H PRN PRN0RF polyethylene glycol 3350 17 GM powder in packet 17 gm PO DAILY PRN PRN (Reason: Constipation) 0RF docusate sodium [Colace] 100 MG capsule 100 mg PO TID PRN PRN0RF alum-mag hydroxide-simeth [Mag-Al Plus] 30 ML suspension 30 ml PO Q2H PRN PRN0RF insulin aspart U-100 [Novolog FlexPen U-100 Insulin] 300 UNITS/3 ML insulin pen 0 units Sub-Q 0800,1200,1700 0RF losartan 25 MG tablet 25 mg PO DAILY Qty: 0 0RF Rx Instructions: CURRENTLY ON HOLD Humulin N NPH U-100 Insulin 100 UNIT/ML suspension 100 unit SQ DIRECTED Qty: 0 0RF Patient Comments: sliding scale Rx Instructions: CURRENTLY ON HOLD furosemide 20 MG tablet 20 mg PO DAILY Qty: 0 0RF Rx Instructions: CURRENTLY ON HOLD metformin 500 mg tablet 1 tab PO BID prednisone 5 mg tablet 1 tab PO DAILY pantoprazole 20 mg tablet,delayed release (DR/EC) 1 tab PO DAILY gabapentin 100 mg capsule 1 cap PO TID Patient Comments: TAKE ONE CAPSULE BY MOUTH THREE TIMES A DAY FOR NECK AND ARM PAIN /TINGLING metoprolol succinate 25 mg tablet extended release 24 hr 1 tab PO DAILY diclofenac sodium 1 % gel 1 applic TOPICAL BID prednisone 20 mg tablet See Rx Instructions .ROUTE .COMPLEX Qty: 18 0RF Rx Instructions: Take 3 tabs daily for 3 days, then 2 tabs daily for 3 days, then 1 tab daily for 3 days. diazepam 5 mg tablet 5 mg PO TID PRN (Reason: muscle spasm) Qty: 10 0RF Discharge Instructions Instructions: Acute bronchitis Additional Instructions: You are seen in the emergency department for your cough and shortness of breath. Your x-ray showed no sign of a pneumonia. As we discussed you likely have a bronchitis. Please return to the emergency department if you develop worsening shortness of breath or if you develop bloody fevers. Otherwise please follow-up with your primary care provider later this week. HPI General Date/Time Provider Initiated Documentation: 10/16/23 19:20 . HPI Narrative: MDM This is a chronically ill hypertensive but normothermic and not tachycardic 83-year-old male with cough shortness of breath concerning for the possibility of pneumonia for which patient will undergo two-view chest x-ray. Will also swab for COVID, influenza, RSV. No significant volume overload to suggest acute heart failure. No pain out of proportion to suggest necrotizing soft tissue infection. No history of trauma so my suspicion for pneumothorax is low. No chest pain to suggest ACS. No rash to chest to suggest zoster. No black nor bloody stools so doubt GI bleed. Patient has a history of JOHNATHON and certainly may have a component of pulmonary hypertension but he is certainly not in acute exacerbation so do not feel he requires nebulized nitrates. I considered PE however the patient has had a productive cough and is on apixaban without calf pain so my suspicion for PE and DVT is low. No prolonged expiratory phase to suggest reactive airway disease so I do not feel that the patient required steroids. Patient is not altered to suggest CVA. No ascending weakness to suggest Guillain-Howell? syndrome. Will reassess following labs and imaging. 8:55 PM Basic metabolic panel shows no AMANDA. Mild hyperglycemia but normal bicarbonate and no anion gap??not consistent with DKA. No AMANDA. Mild hyperglycemia but no anion gap. Mild hyperkalemia. Will obtain ECG. CBC with microcytic anemia improved compared to prior. No thrombocytopenia. No leukocytosis. Venous blood gas showing very mild hypercarbia but normal pH without acidemia. 10:30 PM Patient passed an ambulatory trial in the emergency department. His ECG showed no widening nor prolongation of QTc. He is on a potassium sparing diuretic however he is also on furosemide. I asked health rn coronary care unit Kristen to have the patient seen later this week by his primary care provider. Patient and I discussed return indications including any worsening shortness of breath or any fevers or worsening cough. Patient understood his return indications and he was discharged with an empiric trial of expectant outpatient management. Chronic conditions affecting the care of the patient: JOHNATHON, coronary artery disease, hypertension diabetes History obtained from an outside historian: N/A External record review: [facility] EMR [Diagnostic interpretations performed by me: Per my independent interpretation chest x-ray shows: No acute cardiopulmonary process. Per my independent interpretation EKG shows: sinus bradycardia at a rate of 58. Normal axis. Right bundle branch block. QTc within normal limits. Inferior T wave inversions. Compared to prior dated 2 years ago left bundle branch block is persistent. Inferior T wave inversions appear similar to prior dated earlier this year in the [facility] EMR record. ]Medications: N/A Social determinants of health affecting disposition: N/A Management discussed with: N/A Treatment/interventions considered: Hospitalization but deferred based on the patient's ability to pass ambulatory trial and his chest x-ray without inf iltrate. Response to therapies provided: N/A HPI This is an 83-year-old male with history of coronary artery disease hypertension hyperlipidemia diabetes and CKD arrived to the emergency department via private vehicle in the setting of increased cough and shortness of breath. Patient notes that for the past several days he has had increasing cough. He denies any fevers. He has not taken any recent falls. He denies chest pain. He does state that he has been bringing up some green sputum. He denies any lower extremity swelling. At baseline he walks with a walker. He denies abdominal pain nausea vomiting and sick contacts. He swabbed himself negative for COVID recently. He denies any shortness of breath. He has had no unintentional weight gain. Exam General: Chronically ill-appearing in no acute distress speaking in complete sentences. Head: Normocephalic, atraumatic. Eye: Extraocular eye movements intact. No conjunctival injection. No scleral icterus. Ear, nose, mouth, throat: Grossly normal inspection. Normal voice, handling secretions normally. Neck: Trachea midline. Cardiovascular: Well-perfused distal extremities. Regular rate. Respiratory: Coarse bilateral transmitted upper airway breath sounds. No rhonchi. No wheezes. No prolonged expiratory phase. Gastrointestinal: Nondistended abdomen. Musculoskeletal: No significant lower extremity pitting edema. Moving all 4 extremities spontaneously. Skin: Normal for age and race, grossly normal temperature and turgor. No acute rash. Neurologic: Alert and appropriate, no apparent acute deficits. GCS 15. Psychiatric: Mood and manner are appropriate. Grooming and personal hygiene are appropriate. Related Data Home Medications Medication Instructions Recorded Confirmed aspirin 81 mg tablet,delayed 81 mg PO DAILY 10/24/17 04/23/22 release (Aspir-) azathioprine 50 mg tablet 150 mg PO DAILY 10/24/17 04/23/22 cholecalciferol (vitamin D3) 25 1,000 unit PO BID 10/24/17 04/23/22 mcg (1,000 unit) tablet clopidogrel 75 mg tablet (Plavix) 75 mg PO DAILY 10/24/17 04/23/22 dorzolamide 22.3 mg-timolol 6.8 10 ml OD BID 10/24/17 04/23/22 mg/mL eye drops folic acid 1 mg tablet 1 mg PO DAILY 10/24/17 04/23/22 geriatric [id number] 1 ea PO DAILY 10/24/17 04/23/22 (Complete Senior tablet) levothyroxine 100 mcg tablet 100 mcg PO DAILY 10/24/17 04/23/22 methotrexate sodium 2.5 mg tablet 15 mg PO DIRECTED 10/24/17 04/23/22 nitroglycerin 0.4 mg sublingual 0.4 mg sublingual DIRECTED PRN 10/24/17 04/23/22 tablet (Nitrostat) acetaminophen 325 mg tablet 650 mg (2 x 325 mg) PO Q4H PRN PRN 10/26/17 04/23/22 (Tylenol) aluminum-mag hydroxide-simethicone 30 ml PO Q2H PRN PRN 10/26/17 04/23/22 200 mg-200 mg-20 mg/5 mL oral susp (Mag-Al Plus) docusate sodium 100 mg capsule 100 mg PO TID PRN PRN 10/26/17 04/23/22 (Colace) furosemide 20 mg tablet 20 mg PO DAILY ##0 10/26/17 04/23/22 insulin NPH isoph U-100 human 100 100 unit SQ DIRECTED ##0 10/26/17 04/23/22 unit/mL subcutaneous suspension (Humulin N NPH U-100 Insulin (isophane susp)) insulin aspart U-100 100 unit/mL 0 units subcut 0800,1200,1700 10/26/17 04/23/22 (3 mL) subcutaneous pen (Novolog FlexPen U-100 Insulin aspart) ipratropium 0.5 mg-albuterol 3 mg 3 ml UPD Q6H PRN PRN 10/26/17 04/23/22 (2.5 mg base)/3 mL nebulization soln losartan 25 mg tablet 25 mg PO DAILY ##0 10/26/17 04/23/22 polyethylene glycol 3350 17 gram 17 gm PO DAILY PRN PRN Constipation 10/26/17 04/23/22 oral powder packet diclofenac sodium 1 % topical gel 1 applic topical BID 04/19/22 04/23/22 gabapentin 100 mg capsule 1 cap PO TID 04/19/22 04/23/22 metformin 500 mg tablet 1 tab PO BID 04/19/22 04/23/22 metoprolol succinate 25 mg 1 tab PO DAILY 04/19/22 04/23/22 tablet,extended release 24 hr pantoprazole 20 mg tablet,delayed 1 tab PO DAILY 04/19/22 04/23/22 release prednisone 5 mg tablet 1 tab PO DAILY 04/19/22 04/23/22 diazepam 5 mg tablet 5 mg PO TID PRN muscle spasm #10 04/23/22 tabs prednisone 20 mg tablet See Rx Instructions .Route 04/23/22 .COMPLEX #18 tabs Previous Rx's Medication Instructions Recorded acetaminophen 325 mg tablet 650 mg (2 x 325 mg) PO Q4H PRN PRN 10/26/17 (Tylenol) aluminum-mag hydroxide-simethicone 30 ml PO Q2H PRN PRN 10/26/17 200 mg-200 mg-20 mg/5 mL oral susp (Mag-Al Plus) docusate sodium 100 mg capsule 100 mg PO TID PRN PRN 10/26/17 (Colace) furosemide 20 mg tablet 20 mg PO DAILY ##0 10/26/17 insulin NPH isoph U-100 human 100 100 unit SQ DIRECTED ##0 10/26/17 unit/mL subcutaneous suspension (Humulin N NPH U-100 Insulin (isophane susp)) insulin aspart U-100 100 unit/mL 0 units subcut 0800,1200,1700 10/26/17 (3 mL) subcutaneous pen (Novolog FlexPen U-100 Insulin aspart) ipratropium 0.5 mg-albuterol 3 mg 3 ml UPD Q6H PRN PRN 10/26/17 (2.5 mg base)/3 mL nebulization soln losartan 25 mg tablet 25 mg PO DAILY ##0 10/26/17 polyethylene glycol 3350 17 gram 17 gm PO DAILY PRN PRN Constipation 10/26/17 oral powder packet diazepam 5 mg tablet 5 mg PO TID PRN muscle spasm #10 04/23/22 tabs prednisone 20 mg tablet See Rx Instructions .Route 04/23/22 .COMPLEX #18 tabs Allergies Allergy/AdvReac Type Severity Reaction Status Date / Time atorvastatin [From Lipitor] Allergy Unknown Unverified 10/16/23 19:31 General Stated Complaint: RespSymp KLEBER: 3 Course Vital Signs Vital signs: Vital Signs Temperature 36.7 C 10/16/23 19:07 Pulse 65 10/16/23 19:07 Respiratory Rate 18 10/16/23 19:07 Blood Pressure 199/89 H 10/16/23 19:07 Temperature 36.7 C 10/16/23 19:07 Temperature Source Tympanic 10/16/23 19:07 Pulse 65 10/16/23 19:07 Respiratory Rate 18 10/16/23 19:07 Blood Pressure 199/89 H 10/16/23 19:07 Blood Pressure Position Sitting 10/16/23 19:07 Oxygen Delivery Method Room Air 10/16/23 19:07 Oxygen Flow Rate 0 10/16/23 19:07 Pain Level 0 10/16/23 19:07 Medical Decision Making Quality:SDOH Health Related Social Needs: No Data to Display PFSH All Active Problems (Updated 10/16/23 @ 22:29 by Scooter Redding MD) Bronchitis (Acute) Medical History (Updated 10/16/23 @ 22:29 by Scooter Redding MD) Diabetes HTN (hypertension) Social History Smoking/Tobacco Use Status: Never Smoking risk assessment performed?: Yes Alcohol Intake: never Drug use: Never Substance use type: does not use Do you feel safe at home: Yes Do you feel safe in your relationship?: Yes
--- NOTE | 2023-10-16 20:00 | DI.RAD_ITS ---
Exam(s) XR CHEST 2V PA LATERAL EXAM: XR CHEST 2V PA LATERAL CLINICAL HISTORY: Shortness of breath cough TECHNIQUE: 2D digital imaging was performed. Two views. COMPARISON: CR PORTABLE AP CHEST from 09/12/2007 CR CHEST 2 VIEWS PA,LAT from 10/24/2017 CR CHEST 2 VIEWS PA,LAT from 10/25/2017 CR,XR XR PORTABLE CHEST AP from 04/22/2022 FINDINGS: Exam limited by poor pulmonary inflation. Arm lung bases not well penetrated. HEART: Enlarged. Status post CABG. Coronary artery stent visible. Aorta: Not dilated. PULMONARY VASCULATURE: Normal. MEDIASTINUM: Unremarkable. LUNGS: Left lung base not well visualized on PA view. No gross infiltrate identified. No evidence o f pulmonary edema.. Clear. PLEURAL SPACE: No pleural effusion or pneumothorax. BONE:Sternal wires. Degenerative changes in spine and shoulders. SOFT TISSUES: Unremarkable. IMPRESSION: Limited exam. No acute abnormality. DATA REPOSITORY: RADIATION DOSE DELIVERED:
[2023-10-16 20:31] LABS: Abs Immature Grans 0.15 10^3/uL (0.0-0.06); Absolute Basophil Count 0.02 10^3/uL (0.0-0.2); Absolute Eosinophil Count 0.01 10^3/uL (0.0-0.7); Absolute Lymphocyte Count 0.17 10^3/uL (1.2-3.4); Absolute Monocyte Count 0.56 10^3/uL (0.1-0.8); Absolute Neutrophil Count 4.43 10^3/uL (1.2-6.7); BE (Venous) 6 mmol/L (-2-3); Basophils % 0.4 %; Eosinophils % 0.2 %; HCO3 (Venous) 31 mmol/L (23-28); HCT 34.9 % (40.0-50.0); HGB 11.3 g/dL (13.5-17.5); Immature Grans % 2.8 %; Lymphocytes % 3.2 %; MCH 36.3 pg (27.0-33.0); MCHC 32.4 % (32.0-36.0); MCV 112 fL (80-95); Monocytes % 10.5 %; Neutrophils % 82.9 %; O2 Sat (Venous) 53 %; Platelet Count 214 10^3/uL (130-400); RBC 3.11 10^6/uL (4.36-5.78); RDW 15.5 % (11.8-14.1); TCO2 (Venous) 29 mmol/L (24-29); WBC 5.34 10^3/uL (4.4-10.8); pCO2 (Venous) 53 mmHg (41-51); pH (Venous) 7.38 (7.31-7.41); pO2 (Venous) 30 mmHg
[2023-10-16 20:43] LABS: Anion Gap 6.7 mmol/L (3-11); BUN 25 mg/dL (7-18); CO2 31.3 mmol/L (21.0-32.0); Calcium 9.1 mg/dL (8.5-10.1); Chloride 97 mmol/L (98-107); Diff Comment RBC Morph Reviewed; Estimated GFR 75.61 (mL/min/1.73m2); Glucose 183 mg/dL (74-106); Macrocytosis 2+; Potassium 5.2 mmol/L (3.5-5.1); Sodium 135 mmol/L (136-145)
[2023-10-16 20:57] LABS: COVID-19 PCR Negative (Negative); Influenza A PCR Negative (Negative); Influenza B PCR Negative (Negative); RSV PCR Negative (Negative)
[2023-10-16 20:58] VITALS: O2SAT 91
[2023-10-16 20:58] LABS: Source Nasopharynx
[2023-10-16 21:00] VITALS: O2SAT 89
--- NOTE | 2023-10-16 21:00 | RT.EKG_ITS ---
APPROVED REPORT Exam: Resting ECG Reason for Exam: Hyperkalemia Patient Location: E HR:58 bpm ECG Measurements Heart Rate 58 AXIS VT 193 P 41 QRSd 148 QRS 79 QT 467 T -12 QTc 460 Conclusion Sinus bradycardia...rate< 60 Right bundle branch block...QRSd>120, terminal axis(90,270) sinus bradycardia at a rate of 58. Normal axis. Right bundle branch block. QTc within normal limi ts. Inferior T wave inversions. Compared to prior dated 2 years ago left bundle branch block is per sistent. Inferior T wave inversions appear similar to prior dated earlier this year in the [facility] EMR record.
[2023-10-16 21:10] VITALS: PULSE 58; RESP 22; O2SAT 97
[2023-10-16 21:20] VITALS: PULSE 84; O2SAT 95
--- NOTE | 2023-10-16 22:20 | DI.VRAD_ITS ---
PROCEDURE INFORMATION: Exam: XR Chest Exam date and time: 10/16/2023 8:33 PM Age: 83 years old Clinical indication: Cough and shortness of breath; Prior surgery; Surgery date: 6+ months; Surgery type: Cabg TECHNIQUE: Imaging protocol: Radiologic exam of the chest. Views: 2 views. COMPARISON: CR XR PORTABLE CHEST AP 04/22/2022 11:09 PM FINDINGS: Lungs: Unremarkable. No consolidation. Pleural spaces: Unremarkable. No pleural effusion. No pneumothorax. Heart/Mediastinum: Median sternotomy wires noted. No cardiomegaly. Bones/joints: Unremarkable. IMPRESSION: No acute findings. Dictated and Authenticated by: Kennedy Lucas MD. Ordering:CLEMENTE Helms MD
--- NOTE | 2023-10-17 00:16 | NUR.NOTE ---
Referral to Care Management to refer patient to [facility] for f/u at the end of this week for elevated potassium.Nursing Note:
== END 2023-10-16 22:45 | disposition home or self-care (01) ==
PROVIDERS: Emergency Provider Emergency Medicine; PCP Internal Medicine
DX: J40 Bronchitis, not specified as acute or chronic (principal); I45.19 Other right bundle-branch block; E11.9 Type 2 diabetes mellitus without complications; I10 Essential (primary) hypertension; E78.5 Hyperlipidemia, unspecified; I25.10 Atherosclerotic heart disease of native coronary artery without angina pectoris; G47.33 Obstructive sleep apnea (adult) (pediatric); Z95.1 Presence of aortocoronary bypass graft; Z95.5 Presence of coronary angioplasty implant and graft; Z79.02 Long term (current) use of antithrombotics/antiplatelets; Z79.4 Long term (current) use of insulin; Z79.84 Long term (current) use of oral hypoglycemic drugs; Z79.82 Long term (current) use of aspirin
CPT/HCPCS: 80048; 82805; 87637; 93005; 99285; 71046; 85025; 93010; 99284

== ENCOUNTER 2023-10-18 20:55 | Outpatient (REF) | payer MEDICARE, SELFPAY | END 2023-10-18 20:56 | disposition home or self-care (01) | LOC: LBN 20:55 | PROVIDERS: PCP Family Medicine; Visit Provider Family Medicine | DX: N40.0 Benign prostatic hyperplasia without lower urinary tract symptoms (principal) | CPT/HCPCS: 87077; 87086; 87186 ==

== ENCOUNTER 2023-10-25 13:40 | Outpatient (REF) | payer MEDICARE, SELFPAY ==
[2023-10-25 15:35] LABS: ALT 49 U/L (16-63); AST 36 U/L (15-37); Alkaline Phosphatase 82 U/L (46-116); Anion Gap 10.3 mmol/L (3-11); BUN 27 mg/dL (7-18); Bilirubin, Total 0.53 mg/dL (0.2-1.0); CO2 28.7 mmol/L (21.0-32.0); Calcium 9.4 mg/dL (8.5-10.1); Chloride 96 mmol/L (98-107); Estimated GFR 75.61 (mL/min/1.73m2); Glucose 156 mg/dL (74-106); Potassium 4.4 mmol/L (3.5-5.1); Sodium 135 mmol/L (136-145); Total Protein 6.2 g/dL (6.4-8.2); Vitamin B12 646 pg/mL (193-986)
[2023-10-30 17:22] LABS: Magnesium 1.6 mg/dL (1.8-2.4)
== END 2023-10-25 13:41 | disposition home or self-care (01) ==
LOC: LBN 13:40
PROVIDERS: PCP Family Medicine; Visit Provider Family Medicine
DX: D53.9 Nutritional anemia, unspecified (principal); M60.9 Myositis, unspecified; E83.42 Hypomagnesemia; R79.89 Other specified abnormal findings of blood chemistry; E03.9 Hypothyroidism, unspecified
CPT/HCPCS: 80053; 82607; 83735

== ENCOUNTER 2024-03-05 13:07 | Outpatient (REF) | payer MEDICARE, SELFPAY ==
[2024-03-05 17:18] LABS: Creatine Kinase 162 U/L (39-308)
== END 2024-03-05 13:08 | disposition home or self-care (01) ==
LOC: NCHCN 13:07
PROVIDERS: PCP Family Medicine; Visit Provider Family Medicine
DX: M60.88 Other myositis, other site (principal)
CPT/HCPCS: 82550

== ENCOUNTER 2024-08-24 03:35 | Emergency (ER) | payer MEDICARE, SELFPAY ==
[2024-08-24] VITALS (99 sets, daily range): BP systolic 105–164; BP diastolic 46–110; PULSE 64–83; RESP 11–32; TEMP 36.4–36.8; O2SAT 88–100
--- NOTE | 2024-08-24 03:15 | RT.EKG_ITS ---
APPROVED REPORT Exam: Resting ECG Reason for Exam: chest pain Patient Location: E HR:81 bpm ECG Measurements Heart Rate 81 AXIS WI 237 P 16 QRSd 157 QRS 122 QT 427 T 30 QTc 496 Conclusion Sinus rhythm...normal P axis, V-rate 60- 99 Prolonged WI interval...WI >220, V-rate 50- 90 RBBB and LPFB...QRSd >120mS, axis(90,210) Anterolateral infarct, age indeterminate...Q >35mS, flat/neg T, V3-V6,I,aVL Nonspecific ST-T changes There are no significant changes compared to prior EKG performed on 10/16/2023 at 21:05 except for so me apparent depression in the ST segment of lead II.
--- NOTE | 2024-08-24 03:19 | ED.GENADUL_ITS ---
Discharge Plan Disposition Patient Disposition: Transfer-Acute Inpatient Care Specific Acute Inpt Facility: [facility] Condition: Stable Discharge Details Clinical Impression: Acute non-ST elevation myocardial infarction (NSTEMI) Primary Care Provider: Gardenia Smyth ED Provider: Teodoro Beltran [place] Meds and New Rx's Prescriptions: No Action azathioprine 50 MG tablet 150 mg PO DAILY clopidogrel [Plavix] 75 MG tablet 75 mg PO DAILY aspirin [Aspir-81] 81 MG tablet,delayed release (DR/EC) 81 mg PO DAILY levothyroxine 100 MCG tablet 100 mcg PO DAILY methotrexate sodium 2.5 MG tablet 15 mg PO DIRECTED nitroglycerin [Nitrostat] 0.4 MG tablet, sublingual 0.4 mg Sublingual DIRECTED PRN folic acid 1 MG tablet 1 mg PO DAILY dorzolamide-timolol 10 ML drops 10 ml OD BID Complete Senior 1 EACH tablet 1 ea PO DAILY cholecalciferol (vitamin D3) 1,000 UNIT tablet 1,000 unit PO BID acetaminophen [Tylenol] 325 MG tablet 650 mg PO Q4H PRN PRN0RF ipratropium-albuterol 3 ML solution for nebulization 3 ml UPD Q6H PRN PRN0RF polyethylene glycol 3350 17 GM powder in packet 17 gm PO DAILY PRN PRN (Reason: Constipation) 0RF docusate sodium [Colace] 100 MG capsule 100 mg PO TID PRN PRN0RF alum-mag hydroxide-simeth [Mag-Al Plus] 30 ML suspension 30 ml PO Q2H PRN PRN0RF insulin aspart U-100 [Novolog FlexPen U-100 Insulin] 300 UNITS/3 ML insulin pen 0 units Sub-Q 0800,1200,1700 0RF Humulin N NPH U-100 Insulin 100 UNIT/ML suspension 100 unit SQ DIRECTED Qty: 0 0RF Patient Comments: sliding scale Rx Instructions: CURRENTLY ON HOLD furosemide 20 MG tablet 20 mg PO DAILY Qty: 0 0RF Rx Instructions: CURRENTLY ON HOLD metformin 500 mg tablet 1 tab PO BID prednisone 5 mg tablet 1 tab PO DAILY pantoprazole 20 mg tablet,delayed release (DR/EC) 1 tab PO DAILY gabapentin 100 mg capsule 1 cap PO TID Patient Comments: TAKE ONE CAPSULE BY MOUTH THREE TIMES A DAY FOR NECK AND ARM PAIN /TINGLING metoprolol succinate 25 mg tablet extended release 24 hr 1 tab PO DAILY diclofenac sodium 1 % gel 1 applic TOPICAL BID pantoprazole 40 mg tablet,delayed release (DR/EC) 40 mg PO QAM losartan 100 mg tablet 100 mg PO DAILY isosorbide mononitrate 30 mg tablet extended release 24 hr 30 mg PO DAILY diazepam 5 mg tablet 5 mg PO TID PRN (Reason: muscle spasm) Qty: 10 0RF HPI General Mode of arrival: EMS . Date/Time Provider Initiated Documentation: 08/24/24 03:41 . Limitations to Documentation: no limitations . Information obtained by: patient, EMS and RN notes reviewed . HPI Narrative: Patient presents to ED by ambulance after developing chest pain/pressure that radiated to his back. He does have history of CAD/CABG/stents. He just returned to [place] with his after wintering in [place]. He has not needed to use NTG in quite awhile. He had some CP yesterday that went away with NTG and gabapentin. It came back tonight and was worse and after a few hours, EMS was called. EMS provided 1 NTG with pretty much resolution of symptoms. They also gave aspirin. He arrives here feeling much better. He states he was sweaty and SOB with the pain. He denies abd pain, nausea, vomiting. He has not been ill recently. He has had no cough or fever. Related Data Home Medications ?Medication ?Instructions ?Recorded ?Confirmed aspirin 81 mg tablet,delayed 81 mg PO DAILY 10/24/17 08/24/24 release (Aspir-) azathioprine 50 mg tablet 150 mg PO DAILY 10/24/17 08/24/24 cholecalciferol (vitamin D3) 25 1,000 unit PO BID 10/24/17 08/24/24 mcg (1,000 unit) tablet clopidogrel 75 mg tablet (Plavix) 75 mg PO DAILY 10/24/17 08/24/24 dorzolamide 22.3 mg-timolol 6.8 10 ml OD BID 10/24/17 08/24/24 mg/mL eye drops folic acid 1 mg tablet 1 mg PO DAILY 10/24/17 08/24/24 geriatric [id number] 1 ea PO DAILY 10/24/17 08/24/24 (Complete Senior tablet) levothyroxine 100 mcg tablet 100 mcg PO DAILY 10/24/17 08/24/24 methotrexate sodium 2.5 mg tablet 15 mg PO DIRECTED 10/24/17 08/24/24 nitroglycerin 0.4 mg sublingual 0.4 mg sublingual DIRECTED PRN 10/24/17 08/24/24 tablet (Nitrostat) acetaminophen 325 mg tablet 650 mg (2 x 325 mg) PO Q4H PRN PRN 10/26/17 08/24/24 (Tylenol) aluminum-mag hydroxide-simethicone 30 ml PO Q2H PRN PRN 10/26/17 08/24/24 200 mg-200 mg-20 mg/5 mL oral susp (Mag-Al Plus) docusate sodium 100 mg capsule 100 mg PO TID PRN PRN 10/26/17 08/24/24 (Colace) furosemide 20 mg tablet 20 mg PO DAILY ##0 10/26/17 08/24/24 insulin NPH isoph U-100 human 100 100 unit SQ DIRECTED ##0 10/26/17 08/24/24 unit/mL subcutaneous suspension (Humulin N NPH U-100 Insulin (isophane susp)) insulin aspart U-100 100 unit/mL 0 units subcut 0800,1200,1700 10/26/17 08/24/24 (3 mL) subcutaneous pen (Novolog FlexPen U-100 Insulin aspart) ipratropium 0.5 mg-albuterol 3 mg 3 ml UPD Q6H PRN PRN 10/26/17 08/24/24 (2.5 mg base)/3 mL nebulization soln polyethylene glycol 3350 17 gram 17 gm PO DAILY PRN PRN Constipation 10/26/17 08/24/24 oral powder packet diclofenac sodium 1 % topical gel 1 applic topical BID 04/19/22 08/24/24 gabapentin 100 mg capsule 1 cap PO TID 04/19/22 08/24/24 metformin 500 mg tablet 1 tab PO BID 04/19/22 08/24/24 metoprolol succinate 25 mg 1 tab PO DAILY 04/19/22 08/24/24 tablet,extended release 24 hr pantoprazole 20 mg tablet,delayed 1 tab PO DAILY 04/19/22 08/24/24 release prednisone 5 mg tablet 1 tab PO DAILY 04/19/22 08/24/24 diazepam 5 mg tablet 5 mg PO TID PRN muscle spasm #10 04/23/22 08/24/24 tabs isosorbide mononitrate 30 mg 30 mg PO DAILY 08/24/24 08/24/24 tablet,extended release 24 hr losartan 100 mg tablet 100 mg PO DAILY 08/24/24 08/24/24 pantoprazole 40 mg tablet,delayed 40 mg PO QAM 08/24/24 08/24/24 release Previous Rx's ?Medication ?Instructions ?Recorded acetaminophen 325 mg tablet 650 mg (2 x 325 mg) PO Q4H PRN PRN 10/26/17 (Tylenol) aluminum-mag hydroxide-simethicone 30 ml PO Q2H PRN PRN 10/26/17 200 mg-200 mg-20 mg/5 mL oral susp (Mag-Al Plus) docusate sodium 100 mg capsule 100 mg PO TID PRN PRN 10/26/17 (Colace) furosemide 20 mg tablet 20 mg PO DAILY ##0 10/26/17 insulin NPH isoph U-100 human 100 100 unit SQ DIRECTED ##0 10/26/17 unit/mL subcutaneous suspension (Humulin N NPH U-100 Insulin (isophane susp)) insulin aspart U-100 100 unit/mL 0 units subcut 0800,1200,1700 10/26/17 (3 mL) subcutaneous pen (Novolog FlexPen U-100 Insulin aspart) ipratropium 0.5 mg-albuterol 3 mg 3 ml UPD Q6H PRN PRN 10/26/17 (2.5 mg base)/3 mL nebulization soln polyethylene glycol 3350 17 gram 17 gm PO DAILY PRN PRN Constipation 10/26/17 oral powder packet diazepam 5 mg tablet 5 mg PO TID PRN muscle spasm #10 04/23/22 tabs Allergies Allergy/AdvReac Type Severity Reaction Status Date / Time atorvastatin (From Lipitor) Allergy Unknown Verified 08/24/24 03:28 General KLEBER: 3 Exam Narrative Exam Narrative: Const: WDWN elderly male in NAD. VS per triage. HEENT: NC/AT. Normal facial exam. Neck: Supple. Trachea midline. Lungs: Normal respiratory effort. Lungs are clear. Cor: RRR without murmur. Good radial pulses. GI: Soft/ND/NT. Neuro: A+O x 3. Normal speech, mentation. Cranial nerves II - XII grossly intact. No gross motor or sensory deficit. Ext: No C/C/E. Medical Decision Making Elderly male with history of cardiac disease/CABG/stents presenting with chest pain/pressure that radiated to back and caused SOB/diaphoresis. Improved after NTG and ASA given by EMS. Had mild episode yesterday that he took his own NTG and gabapentin for. Has not needed to use NTG in quite some time. His EKG on a rrival is sinus rhythm with RBBB/LAFB which is old. He has non-specific ST changes that aren't really all that different compared to old, except for some depression in lead II. IV is in place. Symptoms currently resolved. Labs sent including d-dimer though this certainly seems more cardiac in nature than anything else. Chest imaging based upon d-dimer result. 04:15 - Patient's troponin is greater than 4000. He remains pain free. Will start heparin per ACS protocol. His hemoglobin is baseline with mild anemia. His electrolytes are okay other than a mag of 1.7 so we will replete this. Kidney function a little worse than baseline with a creatinine 1.4. His D-dimer is well over thousand so we will obtain CTA of chest to be sure no PE or dissection though this appears to be cardiac in nature. He will receive a 500 mL bolus of saline. I have made him aware of his initial lab results and will discuss with [facility] cardiology pending CTA chest and second troponin. 05:30 - Patient's CP came back and he was started on NTG drip with improvement. His CT chest shows no PE. He has advancing fibrotic changes as well as hypoventilatory changes with scarring and atelectasis. Some diffuse pulmonary mosaicism. His repeat troponin has gone from 4060 to 4660. His repeat EKG essentially unchanged though there is less depression in lead II is now more flat throughout the inferior limb leads. I am awaiting a callback from [facility] cardiology to discuss for transfer. 06:15 - Discussed with cardiology at [facility]. Patient will be excepted to their facility under Dr. Rodríguez. He will be made NPO. Will give him his morning dose of Plavix. Continues on heparin and nitroglycerin drip. Once a bed is available he will be transferred by [facility] ambulance. Imaging Data Radiologic Study: Imaging: CT Scan Radiologist's impression: Prelim Read IMPRESSION: 1. No pulmonary embolus. 2. Advancing basilar fibrotic changes from prior comparison performed on 10/25/2017. 3. Hypoventilatory changes with diffuse scarring/atelectasis, difficult to exclude superimposed infection. 4. Diffuse pulmonary mosaicism, could represent some degree of heart failure, small airway disease. Correlate clinically. Lab Data Lab results reviewed: Yes I reviewed the patient's lab results. Lab results narrative: see MDM ECG Data Attestation: I personally reviewed and interpreted this ECG (s) as follows: Prior ECG tracings: available for review Interpretation: see MDM/EKG Critical Care Time Critical Care Time Critical Care Time: Yes Total Critical Care Time: 60 Attestation: Upon my evaluation, this patient had a high probability of imminent or life- threatening deterioration, which required my direct attention, intervention, and personal management. I have personally provided 60 minutes of critical care time exclusive of time spent on separately billable procedures. Time includes monitoring for potential decompensation, ordering of tests and medications, review of laboratory and radiology results, discussion with consultants and documentation . Interventions were performed as documented above in procedures. [facility] All Active Problems (Updated 08/24/24 @ 05:41 by Teodoro Beltran MD) Acute non-ST elevation myocardial infarction (NSTEMI) (Acute) Medical History Hypothyroid Hyperlipidemia CVA (cerebral vascular accident) CAD (coronary artery disease) Diabetes HTN (hypertension) Surgical History History of heart artery stent S/P CABG (coronary artery bypass graft) S/P carotid endarterectomy Social History Smoking/Tobacco Use Status: Never Smoking risk assessment performed?: Yes Alcohol Intake: never Drug use: Never Substance use type: does not use Do you feel safe at home: Yes Do you feel safe in your relationship?: Yes
[2024-08-24 03:46] LABS: Abs Immature Grans 0.06 10^3/uL (0.0-0.06); Absolute Basophil Count 0.05 10^3/uL (0.0-0.2); Absolute Eosinophil Count 0.06 10^3/uL (0.0-0.7); Absolute Lymphocyte Count 0.66 10^3/uL (1.2-3.4); Absolute Monocyte Count 1.17 10^3/uL (0.1-0.8); Absolute Neutrophil Count 6.72 10^3/uL (1.2-6.7); Basophils % 0.6 %; Eosinophils % 0.7 %; HCT 31.3 % (40.0-50.0); HGB 10.4 g/dL (13.5-17.5); Immature Grans % 0.7 %; Lymphocytes % 7.6 %; MCH 35.5 pg (27.0-33.0); MCHC 33.2 % (32.0-36.0); MCV 107 fL (80-95); MPV 9.9 fL (8.0-11.0); Monocytes % 13.4 %; Platelet Count 180 10^3/uL (130-400); RBC 2.93 10^6/uL (4.36-5.78); RDW 14.4 % (11.8-14.1); RDW-SD 56.2 fL; WBC 8.72 10^3/uL (4.4-10.8)
[2024-08-24 03:56] LABS: Macrocytosis 1+
[2024-08-24 04:08] LABS: ALT 24 U/L (16-63); AST 47 U/L (15-37); Albumin 2.9 g/dL (3.4-5.0); Alkaline Phosphatase 37 U/L (46-116); Anion Gap 11.9 mmol/L (3-11); BUN 31 mg/dL (7-18); Bilirubin, Total 0.6 mg/dL (0.2-1.0); CO2 23.1 mmol/L (21.0-32.0); CREATININE 1.4 mg/dL (0.70-1.30); Calcium 9.7 mg/dL (8.5-10.1); Chloride 102 mmol/L (98-107); Estimated GFR 50.18 (mL/min/1.73m2); Glucose 182 mg/dL (74-106); Lipase 21 U/L (<78); Magnesium 1.7 mg/dL (1.8-2.4); Potassium 4.3 mmol/L (3.5-5.1); Sodium 137 mmol/L (136-145); Total Protein 6.5 g/dL (6.4-8.2)
[2024-08-24 04:13] LABS: Troponin I 4062 ng/L (<or=76)
[2024-08-24 04:15] LABS: D-Dimer 1763 ng/mlFEU (<500)
--- NOTE | 2024-08-24 04:15 | DI.CT_ITS ---
Exam(s) CT CHEST PE CTA EXAM: CT CHEST PE CTA CLINICAL HISTORY: CP; elevated d-dimer. TECHNIQUE: Imaging Protocol: Axial CT angiography was performed with multi-slice acquisition and mu lti-planar reconstructions as well as axial, coronal and sagittal MIP reconstructions. Computer aided detection (CAD) was utilized. CONTRAST MATERIAL: Intravenous: Omnipaque 350 Contrast volume:80 ml COMPARISON: CT CHEST WITHOUT CONTRAST from 10/25/2017 CR,XR XR CHEST 2V PA LATERAL from 10/16/2023 FINDINGS: Pulmonary Arteries: Well opacified with contrast.No evidence of filling defect to suggest pulmonary e mboli. Mediastinum and Karen: No dominant adenopathy or fluid collection. Pulmonary parenchyma: Evaluation of the lungs limited due to expiratory changes. Dependent changes a re present. There are some underlying interstitial changes and mild emphysematous changes. Mild pul monary edema and ground-glass infiltrates are difficult to exclude. No consolidation or dominant lester surable mass. Pleura: No effusion or pneumothorax. Heart: The heart is dilated. Status post CABG. Aorta: Thoracic aorta non-dilated. Atherosclerotic calcification. Upper abdomen: No acute findings. Bones: Sternal wires. Tubes, Catheters, and Lines: None Soft tissues: Unremarkable. IMPRESSION: No evidence of pulmonary embolism. Lungs poorly evaluated due to expiratory changes. Pulmonary edema and or ground glass infiltrates ma y be present. RADIATION DOSE DELIVERED: Total DLP DATA REPOSITORY: All CT scans at this facility are submitted to the National Radiology Data Registry (NRDR) Dose Index Registry (DIR) with the [employer] (A[employer]). RADIATION OPTIMIZATION: All CT scans at this facility use at least one of these dose optimization te chniques: automated exposure control; mA and/or kV adjustment per patient size (includes targeted exa ms where dose is matched to clinical indication); or iterative reconstruction.
[2024-08-24] MEDS: nitroGLYcerin in D5W 50 MG/250 ML BTL IV (04:28)
[2024-08-24] MEDS: Omnipaque 350 MG/ML 100 ML BTL IJ (04:31)
[2024-08-24] MEDS: Normal Saline Flush 10 ML SYR IVP (04:32)
[2024-08-24] MEDS: Normal Saline - Diluent 50 ML VIAL IJ (04:32)
[2024-08-24 04:48] LABS: PTT Activated 25.1 sec (20.6-30.2); Prothrombin Time 9.8 sec (9.1-11.1)
[2024-08-24] MEDS: MAGNESIUM SULFATE 2 GM/50 ML BAG IV_INF (04:49)
[2024-08-24] MEDS: Heparin in 0.45% NaCl 25,000 UNIT/250 ML BAG 10 UNIT IVINF (04:52)
[2024-08-24] MEDS: Normal Saline 500 ML IV (04:58)
--- NOTE | 2024-08-24 05:00 | RT.EKG_ITS ---
APPROVED REPORT Exam: Resting ECG Reason for Exam: CP Patient Location: E HR:71 bpm ECG Measurements Heart Rate 71 AXIS RI 163 P 156 QRSd 162 QRS 113 QT 469 T -18 QTc 511 Conclusion Sinus or ectopic atrial rhythm...P axis (-45,135) Right bundle branch block...QRSd>120, terminal axis(90,270) Anterior infarct, age indeterminate...Q >35mS, T neg, in V2-V5 Less depression in lead II compared to earlier, but inferior limb leads are flattening out now. No STEMI
[2024-08-24 05:22] LABS: Troponin I 4601 ng/L (<or=76)
--- NOTE | 2024-08-24 05:31 | DI.VRAD_ITS ---
PROCEDURE INFORMATION: Exam: CTA Chest With Contrast Exam date and time: 08/24/2024 4:24 AM Age: 84 years old Clinical indication: Pain and abnormal findings; Abnormal diagnostic tests; Other: Chest pain; Prior surgery; Surgery date: 6+ months; Surgery type: Cabg, endarteretomy, stent; Cp, elevated d-dimer TECHNIQUE: Imaging protocol: Computed tomographic angiography of the chest with contrast. Exam focused on the arteries. 3D rendering (Not supervised by radiologist): MIP and/or 3D reconstructed images were created by the technologist. Radiation optimization: All CT scans at this facility use at least one of these dose optimization techniques: automated exposure control; mA and/or kV adjustment per patient size (includes targeted exams where dose is matched to clinical indication); or iterative reconstruction. Contrast material: OMNIPAQUE 350; Contrast volume: 80 ml; Contrast route: INTRAVENOUS (IV); COMPARISON: CT CHEST WITHOUT CONTRAST 10/25/2017 2:26 PM FINDINGS: Pulmonary arteries: Normal. No pulmonary emboli. Aorta: Heavy atherosclerotic disease of the aorta extending into the major visualized branches. Lungs: Lungs are hypoventilated with bronchovascular crowding. Basilar fibrotic changes. Diffuse periportal reticular opacities without consolidation. Pulmonary mosaicism. Pleural spaces: Unremarkable. No pneumothorax. No pleural effusion. Heart: Cardiomegaly. Coronary arteries: Heavy coronary calcified atherosclerotic disease. Postsurgical change of the coronary vasculature. Lymph nodes: Unremarkable. No enlarged lymph nodes. Gallbladder and biliary ducts: Cholecystectomy changes. Pancreas: Fatty atrophy of the pancreas. Spleen: Incidental splenule. Stomach: Decompressed diverticulum off of the posterior gastric fundus. Bones/joints: Sternotomy. Findings compatible with DISH. Diffuse degenerative change of the visualized osseous structures. Soft tissues: Unremarkable. IMPRESSION: 1. No pulmonary embolus. 2. Advancing basilar fibrotic changes from prior comparison performed on 10/25/2017. 3. Hypoventilatory changes with diffuse scarring/atelectasis, difficult to exclude superimposed infection. 4. Diffuse pulmonary mosaicism, could represent some degree of heart failure, small airway disease. Correlate clinically. Dictated and Authenticated by: Hayes Liang MD. Orderin Devin Valerio MD
[2024-08-24] MEDS: Clopidogrel 75 MG TAB PO (06:25)
--- NOTE | 2024-08-26 11:46 | NUR.NOTE ---
[facility] Utilization Review; Scooter called asking for the date that the patient arrived to the ED. He was told the 3rd and that was all he needed. Nursing Note:
== END 2024-08-24 07:46 | disposition short-term general hospital (02) ==
PROVIDERS: Emergency Provider Emergency Medicine; PCP Family Medicine
DX: I21.4 Non-ST elevation (NSTEMI) myocardial infarction (principal); I10 Essential (primary) hypertension; E78.5 Hyperlipidemia, unspecified; E03.9 Hypothyroidism, unspecified; E11.9 Type 2 diabetes mellitus without complications; Z95.1 Presence of aortocoronary bypass graft; Z95.5 Presence of coronary angioplasty implant and graft; Z79.02 Long term (current) use of antithrombotics/antiplatelets; Z79.82 Long term (current) use of aspirin; Z79.4 Long term (current) use of insulin
CPT/HCPCS: 36415; 71275; 80053; 83690; 93005; 96365; 96368; 99285; 83735; 84484; 85025; 85379; 85610; 85730; 93010; J1644; J2305; J3475; J3490

== ENCOUNTER 2024-08-29 07:22 | Inpatient (IN) | payer MEDICARE, SELFPAY ==
[2024-08-29] VITALS (120 sets, daily range): BP systolic 102–186; BP diastolic 45–109; PULSE 57–123; RESP 10–35; TEMP 36.5; O2SAT 77–100
--- NOTE | 2024-08-29 07:15 | RT.EKG_ITS ---
APPROVED REPORT Exam: Resting ECG Reason for Exam: SOB Patient Location: E HR:72 bpm ECG Measurements Heart Rate 72 AXIS MO 216 P 67 QRSd 171 QRS 120 QT 461 T -47 QTc 472 Conclusion Sinus rhythm...normal P axis, V-rate 60- 99 Borderline prolonged MO interval...MO >212, V-rate 50- 90 Right bundle branch block...QRSd>120, terminal axis(90,270) Anteroseptal infarct, age indeterminate...Q >35mS, T neg, V1-V2
--- NOTE | 2024-08-29 07:42 | ED.GENADUL_ITS ---
Discharge Plan Disposition Patient Disposition: Admit to [facility] Condition: Serious Discharge Details Chief Complaint: SOB/SuddenOnset Clinical Impression: Acute non-ST elevation myocardial infarction (NSTEMI), Back pain, thoracic Primary Care Provider: Gardenia Smyth ED Provider: Kennedy Mccurdy Home Meds and New Rx's Prescriptions: No Action azathioprine 50 MG tablet 150 mg PO DAILY clopidogrel [Plavix] 75 MG tablet 75 mg PO DAILY aspirin [Aspir-81] 81 MG tablet,delayed release (DR/EC) 81 mg PO DAILY levothyroxine 100 MCG tablet 100 mcg PO DAILY methotrexate sodium 2.5 MG tablet 15 mg PO DIRECTED nitroglycerin [Nitrostat] 0.4 MG tablet, sublingual 0.4 mg Sublingual DIRECTED PRN folic acid 1 MG tablet 1 mg PO DAILY dorzolamide-timolol 10 ML drops 10 ml OD BID Complete Senior 1 EACH tablet 1 ea PO DAILY cholecalciferol (vitamin D3) 1,000 UNIT tablet 1,000 unit PO BID acetaminophen [Tylenol] 325 MG tablet 650 mg PO Q4H PRN PRN0RF ipratropium-albuterol 3 ML solution for nebulization 3 ml UPD Q6H PRN PRN0RF polyethylene glycol 3350 17 GM powder in packet 17 gm PO DAILY PRN PRN (Reason: Constipation) 0RF docusate sodium [Colace] 100 MG capsule 100 mg PO TID PRN PRN0RF alum-mag hydroxide-simeth [Mag-Al Plus] 30 ML suspension 30 ml PO Q2H PRN PRN0RF insulin aspart U-100 [Novolog FlexPen U-100 Insulin] 300 UNITS/3 ML insulin pen 0 units Sub-Q 0800,1200,1700 0RF Humulin N NPH U-100 Insulin 100 UNIT/ML suspension 100 unit SQ DIRECTED Qty: 0 0RF Patient Comments: sliding scale Rx Instructions: CURRENTLY ON HOLD metformin 500 mg tablet 1 tab PO BID prednisone 5 mg tablet 1 tab PO DAILY gabapentin 100 mg capsule 1 cap PO TID Patient Comments: TAKE ONE CAPSULE BY MOUTH THREE TIMES A DAY FOR NECK AND ARM PAIN /TINGLING metoprolol succinate 25 mg tablet extended release 24 hr 1 tab PO DAILY diclofenac sodium 1 % gel 1 applic TOPICAL BID pantoprazole 40 mg tablet,delayed release (DR/EC) 40 mg PO QAM losartan 100 mg tablet 100 mg PO DAILY isosorbide mononitrate 30 mg tablet extended release 24 hr 30 mg PO DAILY furosemide 40 mg tablet 40 mg PO DAILY Patient Comments: TAKE ONE TABLET BY MOUTH EVERY DAY diazepam 5 mg tablet 5 mg PO TID PRN (Reason: muscle spasm) Qty: 10 0RF HPI General Mode of arrival: wheelchair . Date/Time Provider Initiated Documentation: 08/29/24 07:24 . Limitations to Documentation: no limitations . Information obtained by: patient . History of Present Illness 84 year old M presents to the emergency department with the chief complaint of shortness of breath, described as moderate, Patient started experiencing this hour(s) (3) and it has been constant. Rest improves symptom(s), Movement worsens symptoms . Patient notes denies chest pain, fever/chills and nausea/vomiting. Related Data Home Medications ?Medication ?Instructions ?Recorded ?Confirmed aspirin 81 mg tablet,delayed 81 mg PO DAILY 10/24/17 08/29/24 release (Aspir-) azathioprine 50 mg tablet 150 mg PO DAILY 10/24/17 08/29/24 cholecalciferol (vitamin D3) 25 1,000 unit PO BID 10/24/17 08/29/24 mcg (1,000 unit) tablet clopidogrel 75 mg tablet (Plavix) 75 mg PO DAILY 10/24/17 08/29/24 dorzolamide 22.3 mg-timolol 6.8 10 ml OD BID 10/24/17 08/29/24 mg/mL eye drops folic acid 1 mg tablet 1 mg PO DAILY 10/24/17 08/29/24 geriatric tzggeryh-cajy-dwsd 1 ea PO DAILY 10/24/17 08/29/24 (Complete Senior tablet) levothyroxine 100 mcg tablet 100 mcg PO DAILY 10/24/17 08/29/24 methotrexate sodium 2.5 mg tablet 15 mg PO DIRECTED 10/24/17 08/29/24 nitroglycerin 0.4 mg sublingual 0.4 mg sublingual DIRECTED PRN 10/24/17 08/29/24 tablet (Nitrostat) acetaminophen 325 mg tablet 650 mg (2 x 325 mg) PO Q4H PRN PRN 10/26/17 08/29/24 (Tylenol) aluminum-mag hydroxide-simethicone 30 ml PO Q2H PRN PRN 07/05/18 05/08/25 200 mg-200 mg-20 mg/5 mL oral susp (Mag-Al Plus) docusate sodium 100 mg capsule 100 mg PO TID PRN PRN 10/26/17 08/29/24 (Colace) insulin NPH isoph U-100 human 100 100 unit SQ DIRECTED ##0 10/26/17 08/29/24 unit/mL subcutaneous suspension (Humulin N NPH U-100 Insulin (isophane susp)) insulin aspart U-100 100 unit/mL 0 units subcut 0800,1200,1700 10/26/17 08/29/24 (3 mL) subcutaneous pen (Novolog FlexPen U-100 Insulin aspart) ipratropium 0.5 mg-albuterol 3 mg 3 ml UPD Q6H PRN PRN 10/26/17 08/29/24 (2.5 mg base)/3 mL nebulization soln polyethylene glycol 3350 17 gram 17 gm PO DAILY PRN PRN Constipation 10/26/17 08/29/24 oral powder packet diclofenac sodium 1 % topical gel 1 applic topical BID 04/19/22 08/29/24 gabapentin 100 mg capsule 1 cap PO TID 04/19/22 08/29/24 metformin 500 mg tablet 1 tab PO BID 04/19/22 08/29/24 metoprolol succinate 25 mg 1 tab PO DAILY 04/19/22 08/29/24 tablet,extended release 24 hr prednisone 5 mg tablet 1 tab PO DAILY 04/19/22 08/29/24 diazepam 5 mg tablet 5 mg PO TID PRN muscle spasm #10 04/23/22 08/29/24 tabs isosorbide mononitrate 30 mg 30 mg PO DAILY 08/24/24 08/29/24 tablet,extended release 24 hr losartan 100 mg tablet 100 mg PO DAILY 08/24/24 08/29/24 pantoprazole 40 mg tablet,delayed 40 mg PO QAM 08/24/24 08/29/24 release furosemide 40 mg tablet 40 mg PO DAILY 08/29/24 08/29/24 Previous Rx's ?Medication ?Instructions ?Recorded acetaminophen 325 mg tablet 650 mg (2 x 325 mg) PO Q4H PRN PRN 10/26/17 (Tylenol) aluminum-mag hydroxide-simethicone 30 ml PO Q2H PRN PRN 10/26/17 200 mg-200 mg-20 mg/5 mL oral susp (Mag-Al Plus) docusate sodium 100 mg capsule 100 mg PO TID PRN PRN 10/26/17 (Colace) insulin NPH isoph U-100 human 100 100 unit SQ DIRECTED ##0 10/26/17 unit/mL subcutaneous suspension (Humulin N NPH U-100 Insulin (isophane susp)) insulin aspart U-100 100 unit/mL 0 units subcut 0800,1200,1700 10/26/17 (3 mL) subcutaneous pen (Novolog FlexPen U-100 Insulin aspart) ipratropium 0.5 mg-albuterol 3 mg 3 ml UPD Q6H PRN PRN 10/26/17 (2.5 mg base)/3 mL nebulization soln polyethylene glycol 3350 17 gram 17 gm PO DAILY PRN PRN Constipation 10/26/17 oral powder packet diazepam 5 mg tablet 5 mg PO TID PRN muscle spasm #10 04/23/22 tabs Allergies Allergy/AdvReac Type Severity Reaction Status Date / Time atorvastatin (From Lipitor) Allergy Unknown Verified 08/29/24 07:38 General Stated Complaint: SOB/SuddenOnset KLEBER: 2 Review of Systems All systems reviewed & are unremarkable except as noted in HPI and below Constitutional Constitutional: Denies chills, Denies fever(s) and Denies weakness Cardiovascular Cardiovascular: Denies chest pain and Reports dyspnea Respiratory Respiratory: Denies cough and Reports dyspnea Gastrointestinal Gastrointestinal: Denies abdominal pain, Denies nausea and Denies vomiting Neurologic Neurologic: Denies weakness Psychiatric Psychiatric: Denies depression Endocrine Endocrine: Denies cold intolerance Exam Const General: no acute distress Orientation: alert [facility] Head: normal to inspection Ears: external ears normal General nose exam: external nose normal Mouth: moist mucous membranes Eyes General: appearance normal, both eyes and all related structures Neck Neck: normal visual inspection Resp Effort & Inspection: normal respiratory effort and able to speak in complete sentences Auscultation: crackles Cardio Jugular venous pressure: no JVD Rate: regular rate Skin General skin exam: no rashes or lesions noted Neuro General: patient alert and patient oriented x3 Extrem General: normal to inspection Psych Mental Status: mental status grossly normal Course Vital Signs Vital signs: Vital Signs Pulse 66 08/29/24 07:31 Respiratory Rate 28 H 08/29/24 07:31 Blood Pressure 124/45 L 08/29/24 07:31 Pulse Oximetry 97 08/29/24 07:31 Temperature Source Tympanic 08/29/24 07:31 Pulse 66 08/29/24 07:31 Respiratory Rate 28 H 08/29/24 07:31 Respiratory Effort Short of Breath, Labored 08/29/24 07:35 Respiratory Depth Shallow 08/29/24 07:35 Respiratory Pattern Tachypnea 08/29/24 07:35 Blood Pressure 124/45 L 08/29/24 07:31 Blood Pressure Position Sitting 08/29/24 07:31 Pulse Oximetry 97 08/29/24 07:31 Oxygen Delivery Method Room Air 08/29/24 07:31 Oxygen Flow Rate 0 08/29/24 07:31 Pain Level 0 08/29/24 07:31 Medical Decision Making 84-year-old male with history of coronary artery disease who underwent balloon angioplasty and stent placement for patient last week at [facility] after having an NSTEMI and was discharged this past Monday comes in with shortness of breath that started this morning along with diaphoresis. He denies any chest pain or chest pressure, no fevers or chills. No cough. He is oriented x 4 on arrival in no stress. He has noted crackles at the bases bilaterally, no JVD, mild swelling of the distal legs, no calf tenderness. He had a CTA of his chest when he was here last week with his NSTEMI which did not show any PE so I doubt PE at this time. On bedside POCUS he does have diminished ejection fraction and small amount of B-lines bilaterally. I suspect component of CHF, will obtain CBC, CMP, troponins, proBNP and a chest x-ray give a dose of Lasix and reassess. Pt developed chest pain he states felt similar to when he was here last time, nitro with minimal improvement. troponin over 6000 so heparin bolus and infusion ordered, his glucose is 47 states he didn't eat this morning and took his insulin. Will recheck finger stick after he receives glucose. Pt now stating he's having excruciating upper back pain, will proceed with CTA to evaluate for dissection Spoke with cardiology at [facility] who reviewed the case and will plan to transfer down there accepting provider is Dr. Rodríguez. Patient CTA negative. Patient remained stable, [facility] called back and said they will build to take him till tomorrow. Spoke with Dr. Estrella who plans to admit here until he can be transferred tomorrow. Differential Diagnosis Differential Diagnosis: nstemi, chf, pneumonia Medical Records Medical records reviewed: Yes I reviewed the patient's medical records. Lab Data Lab results reviewed: Yes I reviewed the patient's lab results. ECG Data Attestation: I personally reviewed and interpreted this ECG (s) as follows: Prior ECG tracings: available for review Interpretation: 1st ekg sinus with pvc's, rbbb, no stemi 2nd ekg sinus rate of 64 pvc's no stemi 3rd ekg sinus rate of 68 no stemi Quality:SDOH Health Related Social Needs: No Data to Display Critical Care Time Critical Care Time Critical Care Time: Yes Total Critical Care Time: 45 Attestation: Time spent on lab review, hemodynamic monitoring and frequent reassessments in a patient with an NSTEMI requiring nitro and heparin infusions and potential to deteriorate at any time. PFSH All Active Problems (Updated 08/29/24 @ 10:15 by Kennedy Mccurdy MD) Back pain, thoracic (Acute) Acute non-ST elevation myocardial infarction (NSTEMI) (Acute) Medical History Hypothyroid Hyperlipidemia CVA (cerebral vascular accident) CAD (coronary artery disease) Diabetes HTN (hypertension) Surgical History History of heart artery stent S/P CABG (coronary artery bypass graft) S/P carotid endarterectomy Social History Smoking/Tobacco Use Status: Never Smoking risk assessment performed?: Yes Alcohol Intake: never Drug use: Never Substance use type: does not use Housing: house Do you feel safe at home: Yes Do you feel safe in your relationship?: Yes POCUS Exam (ED) Limited Cardiac Exam DATE OF EXAM: 08/29/24 TIME OF EXAM: 07:44 REASON FOR EXAM: Dyspnea VISUALIZED STRUCTURES: Four Chambers VIEW OBTAINED: Parasternal long-axis and Parasternal short-axis PERTINENT FINDINGS/IMPRESSION: LV dysfunction; No pericardial effusion Exam complete Limited Thoracic Lung Exam REASON FOR EXAM: Shortness ofBreath VISUALIZED STRUCTURES: right anterior and left anterior PERTINENT FINDINGS/IMPRESSION: B-lines/left side and B-lines/right side Exam complete
[2024-08-29] MEDS: Normal Saline Flush 10 ML SYR IVP ×2 (07:46→19:40)
[2024-08-29] MEDS: Furosemide 40 MG/4 ML VIAL IVP (07:46)
[2024-08-29 07:59] LABS: Abs Immature Grans 0.15 10^3/uL (0.0-0.06); Absolute Eosinophil Count 0.26 10^3/uL (0.0-0.7); Absolute Monocyte Count 1.66 10^3/uL (0.1-0.8); BE (Venous) 4 mmol/L (-2-3); Basophils % 0.3 %; Eosinophils % 1.4 %; HCO3 (Venous) 30 mmol/L (23-28); HCT 35.7 % (40.0-50.0); HGB 11.4 g/dL (13.5-17.5); Immature Grans % 0.8 %; Lymphocytes % 11.2 %; MCH 34.5 pg (27.0-33.0); MCHC 31.9 % (32.0-36.0); MCV 108 fL (80-95); MPV 9.6 fL (8.0-11.0); Monocytes % 8.9 %; Neutrophils % 77.4 %; Nucleated RBC 0.1 % (0.0-0.3); O2 Sat (Venous) 56 %; Platelet Count 343 10^3/uL (130-400); RDW 14.4 % (11.8-14.1); TCO2 (Venous) 28 mmol/L (24-29); WBC 18.61 10^3/uL (4.4-10.8); pCO2 (Venous) 58 mmHg (41-51); pH (Venous) 7.33 (7.31-7.41); pO2 (Venous) 35 mmHg
[2024-08-29 08:00] LABS: Absolute Basophil Count 0.06 10^3/uL (0.0-0.2); Absolute Lymphocyte Count 2.08 10^3/uL (1.2-3.4)
--- NOTE | 2024-08-29 08:00 | RT.EKG_ITS ---
APPROVED REPORT Exam: Resting ECG Reason for Exam: chest pain Patient Location: E HR:64 bpm ECG Measurements Heart Rate 64 AXIS LA 141 P 130 QRSd 170 QRS 140 QT 456 T -54 QTc 472 Conclusion Sinus rhythm...normal P axis, V-rate 60- 99 Right bundle branch block...QRSd>120, terminal axis(90,270) Lateral infarct, acute...ST >.10mV, V5 V6 I aVL Anteroseptal infarct, age indeterminate...Q >35mS, T neg, V1-V2
[2024-08-29] MEDS: nitroGLYcerin 0.4 MG TAB SL ×3 (08:03→08:13)
[2024-08-29 08:12] LABS: PTT Activated 18.3 sec (20.6-30.2); Prothrombin Time 10.5 sec (9.1-11.1)
--- NOTE | 2024-08-29 08:15 | DI.RAD_ITS ---
Exam(s) XR PORTABLE CHEST AP EXAM: XR PORTABLE CHEST AP CLINICAL HISTORY: CP. TECHNIQUE: 2D digital imaging was performed. COMPARISON: CR,XR XR CHEST 2V PA LATERAL from 10/16/2023 FINDINGS: Single AP portable view. Chest leads and cardiac pad in place. Sternotomy wires again noted. Heart size upper normal. Mediastinum is not widened. No confluent infiltrates nor pleural effusions. No pneumothorax. No obvious pulmonary edema. IMPRESSION: No obvious acute pulmonary findings on this single AP portable view of the chest. Sternotomy wires. DATA REPOSITORY: RADIATION DOSE DELIVERED:
[2024-08-29 08:29] LABS: ALT 23 U/L (16-63); AST 19 U/L (15-37); Albumin 3.3 g/dL (3.4-5.0); Alkaline Phosphatase 41 U/L (46-116); Anion Gap 10.8 mmol/L (3-11); BUN 41 mg/dL (7-18); Bilirubin, Total 0.8 mg/dL (0.2-1.0); CO2 30.2 mmol/L (21.0-32.0); CREATININE 1.9 mg/dL (0.70-1.30); Chloride 102 mmol/L (98-107); Estimated GFR 34.79 (mL/min/1.73m2); NT-proBNP 20275 pg/mL (<300); Potassium 3.2 mmol/L (3.5-5.1); Sodium 143 mmol/L (136-145); TSH (W/Ref FT4) 1.61 uIU/mL (0.36-3.74); Total Protein 6.9 g/dL (6.4-8.2)
--- NOTE | 2024-08-29 08:30 | RT.EKG_ITS ---
APPROVED REPORT Exam: Resting ECG Reason for Exam: Chest Pain Patient Location: E HR:66 bpm ECG Measurements Heart Rate 66 AXIS LA [id number] P [id number] QRSd 161 QRS 109 QT 429 T -55 QTc 449 Conclusion Atrial fibrillation...V-rate 58- 68, irreg A-activity Ventricular premature complex...V complex w/ short R-R interval RBBB and LPFB...QRSd >120mS, axis(90,210) Anteroseptal infarct, age indeterminate...Q >35mS, T neg, V1-V2 Abnormal T, probable ischemia, lateral leads...T <-0.50mV, I aVL V5 V6
[2024-08-29 08:32] LABS: Glucose 41 mg/dL (74-106); Troponin I 6449 ng/L (<or=76)
[2024-08-29 08:36] LABS: COVID-19 PCR Negative (Negative); Influenza A PCR Negative (Negative); Influenza B PCR Negative (Negative); RSV PCR Negative (Negative)
[2024-08-29 08:38] LABS: Source Nasopharynx
[2024-08-29] MEDS: fentaNYL 100 MCG/2 ML VIAL 50 MCG IVP (08:50)
[2024-08-29] MEDS: Dextrose 50%-Water 25 GM/50 ML SYR IVP (08:51)
[2024-08-29] MEDS: nitroGLYcerin in D5W 50 MG/250 ML BTL IV (08:57)
[2024-08-29] MEDS: Heparin in 0.45% NaCl 25,000 UNIT/250 ML BAG 10 UNIT IVINF (08:58)
[2024-08-29 08:59] LABS: Procalcitonin < 0.10 ng/mL
--- NOTE | 2024-08-29 09:00 | DI.CT_ITS ---
Exam(s) CT THORAX ABD/PEL CTA EXAM: CT THORAX ABD/PEL CTA CLINICAL HISTORY: chest and upper back pain. TECHNIQUE: Imaging Protocol: Axial computed tomography images with coronal and sagittal reformatted images were created and reviewed CONTRAST MATERIAL: Intravenous: Omnipaque 350 Contrast volume:100 ml Oral: None COMPARISON: CT CT CHEST PE CTA from 08/24/2024 FINDINGS: CHEST: AORTA: The diameter of the ascending thoracic aorta is normal as is the diameter of the arch and desc ending thoracic aorta. There is some atherosclerotic involvement of the aortic arch but there is no evidence of aortic dissection nor pericardial effusion. The abdominal aorta is moderately atheroscle rotic but not enlarged. There is also atherosclerotic involvement of the iliac arteries but without aneurysmal dilatation. LUNGS: There are mild increased markings in the right lower lobe posterior basal segment, this superi mposed upon some COPD findings. There are no pleural effusions. No ominous pulmonary nodules.. MEDIASTINUM: There is some lipomatosis of the mediastinum. There is no hilar nor mediastinal adenopa thy evident. No supraclavicular adenopathy. Thyroid gland is small. CARDIAC: There are sternotomy wires. Cardiomegaly. No pericardial effusion. There is coronary trevor ry calcification. ABDOMEN: There is no ascites. There are no ischemic appearing bowel loops and there is no evidence of bowel o bstruction, free air, nor abscess. Incidentally noted is a gastric fundus diverticulum. LIVER: There are no focal hepatic lesions nor dilatation of intrahepatic ducts. GALLBLADDER/BILIARY: Gallbladder surgically absent. CBD is not dilated. PANCREAS: No evidence of pancreatic mass nor dilatation of the pancreatic duct. SPLEEN: Spleen is not enlarged. There are no intrasplenic lesions. Splenic and portal veins are garcia nt. ADRENALS: There are no significant adrenal masses. KIDNEYS: There is a 3.8 cm benign cyst in the left kidney. Does not require further workup. There a re no solid renal masses nor calculi nor hydronephrosis nor hydroureter. Urinary bladder wall is dif fusely thickened. On the left side there is some focal asymmetric thickening. Should undergo endosc opy. Prostate size is moderately prominent and indents the bladder base. The pelvic ureters are not dilated.. ABDOMINAL AORTA: As above LYMPH NODES: There is no retroperitoneal nor para-aortic adenopathy. No obvious mesenteric masses. ABDOMINAL WALL: No evidence of significant anterior abdominal wall hernia. GI: There is no evidence of bowel obstruction, free air, nor abscess. PELVIS: LYMPH NODES: There is no intrapelvic nor inguinal adenopathy. GI: No evidence of appendicitis.Sigmoid diverticulosis without evidence of obvious acute diverticulit is. URINARY BLADDER: See above REPRODUCTIVE: Moderately enlarged prostate. OSSEOUS: No significant osseous lesions. IMPRESSION: 1. No evidence of aortic dissection. The thoracic and abdominal aorta is moderately atherosclerotic but nonaneurysmal. The iliac arteries are also atherosclerotic but non dilated. 2. Cardiomegaly and sternotomy wires. There is no pericardial effusion 3. Slight asymmetric thickening of the left side of the urinary bladder wall, this superimposed upon diffuse bladder wall thickening. 4. Moderately enlarged prostate gland Called by myself to ER physician 08/29/2024 at 10:07 a.m.. RADIATION DOSE DELIVERED: 2,289.15mGy.cm Total DLP DATA REPOSITORY: All CT scans at this facility are submitted to the National Radiology Data Registry (NRDR) Dose Index Registry (DIR) with the [employer] (ACR). RADIATION OPTIMIZATION: All CT scans at this facility use at least one of these dose optimization te chniques: automated exposure control; mA and/or kV adjustment per patient size (includes targeted exa ms where dose is matched to clinical indication); or iterative reconstruction.
[2024-08-29] MEDS: fentaNYL 100 MCG/2 ML VIAL IVP ×2 (09:04→09:41)
[2024-08-29] MEDS: Aspirin 81 MG CHEW (09:08)
[2024-08-29] MEDS: POTASSIUM CHLORIDE 10 MEQ/100 ML BAG 100 MEQ IV_INF (09:09)
[2024-08-29 09:24] LABS: Troponin I 4981 ng/L (<or=76)
[2024-08-29] MEDS: Metoprolol 12.5 MG TAB PO (09:48)
--- NOTE | 2024-08-29 10:00 | RT.EKG_ITS ---
APPROVED REPORT Exam: Resting ECG Reason for Exam: Chest Pain Patient Location: E HR:68 bpm ECG Measurements Heart Rate 68 AXIS FL 185 P 62 QRSd 152 QRS 98 QT 408 T -58 QTc 435 Conclusion Sinus rhythm...normal P axis, V-rate 60- 99 Right bundle branch block...QRSd>120, terminal axis(90,270) Anterior infarct, age indeterminate...Q >35mS, T neg, in V2-V5 Abnormal T, consider ischemia, lateral leads...T <-0.20mV, I aVL V5 V6
[2024-08-29] MEDS: HYDROmorphone 2 MG/ML SYR 1 MG IVP (10:26)
[2024-08-29 10:30] LABS: Bilirubin Negative (Negative); Blood Trace-intact (Negative); Clarity Clear (Clear); Glucose Negative (Negative); Ketones Negative (Negative); Leukocyte Esterase Small (Negative); Nitrite Negative (Negative); Urobilinogen 0.2 mg/dL (Up to 0.2); pH 6.5 (5-8)
[2024-08-29 10:40] LABS: Bacteria Moderate HPF (Negative); C & S Indicated? No; Casts Negative LPF (Negative); Crystals Negative HPF (Negative); Epithelial Cells Rare HPF (Negative); Mucus Negative (Negative)
[2024-08-29 11:14] LABS: Troponin I 3134 ng/L (<or=76)
--- NOTE | 2024-08-29 12:00 | RT.EKG_ITS ---
APPROVED REPORT Exam: Resting ECG Reason for Exam: Chest Pain Patient Location: E HR:77 bpm ECG Measurements Heart Rate 77 AXIS VA 149 P 0 QRSd 168 QRS 111 QT 441 T -51 QTc 499 Conclusion Sinus rhythm...normal P axis, V-rate 60- 99 Atrial premature complex...SV complex w/ short R-R interval RBBB and LPFB...QRSd >120mS, axis(90,210) Anterolateral infarct, age indeterminate...Q >35mS, flat/neg T, V3-V6,I,aVL
--- NOTE | 2024-08-29 15:50 | HPE_ITS ---
Date of service: 08/29/24 Time of Service: 15:50 Assessment and Plan Assessment and plan (1) Acute non-ST elevation myocardial infarction (NSTEMI): Status: Acute Assessment and plan: -patient recently at [facility] on [place]24 for NSTEMI with peak trop of ~4K and recieved ballon angioplasty -presents back with SOB, chest pain, and peak trop of over 6K -patient was started on ASA, plavix and heparin drip with improvement of trop down to ~3K -continue daily ASA, plavix, heparin drip -continue nitro drip for chest pain (2) CAD (coronary artery disease): Assessment and plan: -as noted above -continue ASA, plavix, metoprolol -patient has documented allergy to statin (3) HTN (hypertension): Assessment and plan: -hold home losartan at this time (4) Diabetes: Assessment and plan: -SSI, CCD -will ne NPO at midnight (5) Hypothyroid: Assessment and plan: -continue home synthroid History of Present Illness History of Present Illness Chief Complaint: shortness of breath Narrative: 84yo male with PMH HTN, HLD, hypothyroidism, IDDM, and recent NSTEMI requiring ballon angioplasty at [facility] on [place]/2024 who was just discharged on 08/25/2024 who presents back to [facility] with complaints of shortnes of breath Patient states that he was doing well after discharge from [facility] until the morning of 08/28 when he started to have sudden onset of shortness of breath associated with diaphoresis. He inititally denies any lightheadedness, dizziness, nausea, vomiting, or chest pain. Upon arrival to the ED the patient then stated he was having chest pain similar to when he initially presented on 08/24 but was also having back pain. Patient had CTA chest that did not show aortic dissection. Patient vitals were within normal limits except for tachypnea and RR of 28. CBC showed WBC of 18 but remainder for CBC and CMP were WNL. Initial trop was 6449 (was found to be ~4K when he was initially transferred to [facility]) but decreased to 3134 since initiation of ASA, plavix and heparin drip. EKGs did not show any new ischemic changes. The patient has been accepted for transfer to [facility] Cardiology by Dr. Rodríguez, but given that a bed will not be available until tomorrow, ED provicer paged hospitalist for admission of a patient with NSTEMI. Review of Systems All systems reviewed & are unremarkable except as noted in HPI and below PFSH All Active Problems (Updated 08/29/24 @ 10:15 by Kennedy Mccurdy MD) Back pain, thoracic (Acute) Acute non-ST elevation myocardial infarction (NSTEMI) (Acute) Medical History Hypothyroid Hyperlipidemia CVA (cerebral vascular accident) CAD (coronary artery disease) Diabetes HTN (hypertension) Surgical History History of heart artery stent S/P CABG (coronary artery bypass graft) S/P carotid endarterectomy Social History Smoking/Tobacco Use Status: Never Smoking risk assessment performed?: Yes Alcohol Intake: never Drug use: Never Substance use type: does not use Housing: house Do you feel safe at home: Yes Do you feel safe in your relationship?: Yes Meds Allergies and Home Medications Allergies Allergy/AdvReac Type Severity Reaction Status Date / Time atorvastatin (From Lipitor) Allergy Unknown Verified 08/29/24 07:38 Home Medications ?Medication ?Instructions ?Recorded ?Confirmed ?Type aspirin 81 mg tablet,delayed 81 mg PO DAILY 10/24/17 08/29/24 History release (Aspir-) azathioprine 50 mg tablet 150 mg PO DAILY 10/24/17 08/29/24 History cholecalciferol (vitamin D3) 25 1,000 unit PO BID 10/24/17 08/29/24 History mcg (1,000 unit) tablet clopidogrel 75 mg tablet (Plavix) 75 mg PO DAILY 10/24/17 08/29/24 History dorzolamide 22.3 mg-timolol 6.8 10 ml OD BID 10/24/17 08/29/24 History mg/mL eye drops folic acid 1 mg tablet 1 mg PO DAILY 10/24/17 08/29/24 History geriatric ccwbeggo-tkjy-rtri 1 ea PO DAILY 10/24/17 08/29/24 History (Complete Senior tablet) levothyroxine 100 mcg tablet 100 mcg PO DAILY 10/24/17 08/29/24 History methotrexate sodium 2.5 mg tablet 15 mg PO DIRECTED 10/24/17 08/29/24 History nitroglycerin 0.4 mg sublingual 0.4 mg sublingual DIRECTED PRN 10/24/17 08/29/24 History tablet (Nitrostat) acetaminophen 325 mg tablet 650 mg (2 x 325 mg) PO Q4H PRN PRN 10/26/17 08/29/24 Rx (Tylenol) aluminum-mag hydroxide-simethicone 30 ml PO Q2H PRN PRN 10/26/17 08/29/24 Rx 200 mg-200 mg-20 mg/5 mL oral susp (Mag-Al Plus) docusate sodium 100 mg capsule 100 mg PO TID PRN PRN 10/26/17 08/29/24 Rx (Colace) insulin NPH isoph U-100 human 100 100 unit SQ DIRECTED ##0 10/26/17 08/29/24 Rx unit/mL subcutaneous suspension (Humulin N NPH U-100 Insulin (isophane susp)) insulin aspart U-100 100 unit/mL 0 units subcut 0800,1200,1700 10/26/17 08/29/24 Rx (3 mL) subcutaneous pen (Novolog FlexPen U-100 Insulin aspart) ipratropium 0.5 mg-albuterol 3 mg 3 ml UPD Q6H PRN PRN 10/26/17 08/29/24 Rx (2.5 mg base)/3 mL nebulization soln polyethylene glycol 3350 17 gram 17 gm PO DAILY PRN PRN Constipation 10/26/17 08/29/24 Rx oral powder packet diclofenac sodium 1 % topical gel 1 applic topical BID 04/19/22 08/29/24 History gabapentin 100 mg capsule 1 cap PO TID 04/19/22 08/29/24 History metformin 500 mg tablet 1 tab PO BID 04/19/22 08/29/24 History metoprolol succinate 25 mg 1 tab PO DAILY 04/19/22 08/29/24 History tablet,extended release 24 hr prednisone 5 mg tablet 1 tab PO DAILY 04/19/22 08/29/24 History diazepam 5 mg tablet 5 mg PO TID PRN muscle spasm #10 04/23/22 08/29/24 Rx tabs isosorbide mononitrate 30 mg 30 mg PO DAILY 08/24/24 08/29/24 History tablet,extended release 24 hr losartan 100 mg tablet 100 mg PO DAILY 08/24/24 08/29/24 History pantoprazole 40 mg tablet,delayed 40 mg PO QAM 08/24/24 08/29/24 History release furosemide 40 mg tablet 40 mg PO DAILY 08/29/24 08/29/24 History Exam Narrative Exam Narrative: well appearing older gentleman laying in bed in no acute distress, AOx4, heart RRR, lungs CTAB, abdomen soft, non-tender, non-distended Results Labs 08/29/24 07:45 08/29/24 07:45 Labs: Laboratory Results - last 24 hr 08/29/24 08/29/24 08/29/24 07:45 08:40 09:54 WBC 18.61 H RBC 3.30 L Hgb 11.4 L Hct 35.7 L MCV 108 H MCH 34.5 H MCHC 31.9 L RDW 14.4 H Plt Count 343 MPV 9.6 Immature Gran % 0.8 Neutrophils % 77.4 Lymphocytes % 11.2 Monocytes % 8.9 Eosinophils % 1.4 Basophils % 0.3 Nucleated RBC % 0.1 Absolute Neutrophils 14.40 H Absolute Lymphocytes 2.08 Absolute Monocytes 1.66 H Absolute Eosinophils 0.26 Absolute Basophils 0.06 PT 10.5 INR 1.0 APTT 18.3 L VBG pH 7.33 VBG pCO2 58 H VBG pO2 35 VBG HCO3 30 H VBG Total CO2 28 VBG O2 Saturation 56 VBG Base Excess 4 H Sodium 143 Potassium 3.2 L Chloride 102 Carbon Dioxide 30.2 Anion Gap 10.8 BUN 41 H Creatinine 1.9 H Est GFR (CKD-EPI 2020) 34.79 Glucose 41 L* Calcium 10.0 Magnesium 2.0 Total Bilirubin 0.8 AST 19 ALT 23 Alkaline Phosphatase 41 L Troponin I 6449 H* 4981 H* NT-Pro-B Natriuret Pep 65977 H Total Protein 6.9 Albumin 3.3 L Procalcitonin < 0.10 TSH 1.61 Urine Color Yellow Urine Clarity Clear Urine pH 6.5 Ur Specific [place] 1.010 Urine Protein Negative Urine Ketones Negative Urine Blood Trace-intact H Urine Nitrite Negative Urine Bilirubin Negative Urine Urobilinogen 0.2 Ur Leukocyte Esterase Small H Urine RBC 3-5 H Urine WBC 5-10 Ur Epithelial Cells Rare Urine Crystals Negative Urine Bacteria Moderate Urine Casts Negative Urine Mucus Negative Ur Culture Indicated? No Urine Glucose Negative COVID-19 Source Nasopharynx SARS-CoV-2 (PCR) Negative Influenza Type A (PCR) Negative Influenza Type B (PCR) Negative RSV (PCR) Negative 08/29/24 10:45 WBC RBC Hgb Hct MCV MCH MCHC RDW Plt Count MPV Immature Gran % Neutrophils % Lymphocytes % Monocytes % Eosinophils % Basophils % Nucleated RBC % Absolute Neutrophils Absolute Lymphocytes Absolute Monocytes Absolute Eosinophils Absolute Basophils PT INR APTT VBG pH VBG pCO2 VBG pO2 VBG HCO3 VBG Total CO2 VBG O2 Saturation VBG Base Excess Sodium Potassium Chloride Carbon Dioxide Anion Gap BUN Creatinine Est GFR (CKD-EPI 2020) Glucose Calcium Magnesium Total Bilirubin AST ALT Alkaline Phosphatase Troponin I 3134 H* NT-Pro-B Natriuret Pep Total Protein Albumin Procalcitonin TSH Urine Color Urine Clarity Urine pH Ur Specific [place] Urine Protein Urine Ketones Urine Blood Urine Nitrite Urine Bilirubin Urine Urobilinogen Ur Leukocyte Esterase Urine RBC Urine WBC Ur Epithelial Cells Urine Crystals Urine Bacteria Urine Casts Urine Mucus Ur Culture Indicated? Urine Glucose COVID-19 Source SARS-CoV-2 (PCR) Influenza Type A (PCR) Influenza Type B (PCR) RSV (PCR) Last Vital Signs Pulse 97 H 08/29/24 15:15 Resp 20 08/29/24 15:20 BP 177/106 H 08/29/24 15:15 Pulse Ox 92 08/29/24 15:15 Time Spent Time spent with Patient: >75 minutes Time was spent: preparing to see the patient(eg.review tests), obtaining and/or reviewing separately otained hiistory, ordering medications,tests, procedures, referring, communicating with other health health care specialist, indepentently interpreting results, counseling the patient and care coordination
--- NOTE | 2024-08-29 17:20 | W.PC.ACHO ---
Registration Status: Primary Language: Preferred Language: ED Information & Data Chief Complaint SOB/SuddenOnset 08/29/24 07:46 Triage Note new onset of sob, 08/29/24 07:31 diaphoresis this morning. D/ C[place] [facility] [place] (had stents placed) and was fine until this morning. I just don't feel well. Medical / Surgical History (Last Reviewed 08/24/24 @ 03:22 by Teodoro Beltran MD) Hypothyroid Hyperlipidemia CVA (cerebral vascular accident) CAD (coronary artery disease) Diabetes HTN (hypertension) (Last Reviewed 08/24/24 @ 03:22 by Teodoro Beltran MD) History of heart artery stent S/P CABG (coronary artery bypass graft) S/P carotid endarterectomy Most Recent Vital Signs Temperature 36.5 C 08/29/24 16:30 Temperature Source Temporal Artery Scan 08/29/24 16:30 Pulse 83 08/29/24 16:30 Pulse 86 08/29/24 16:40 Respiratory Rate 17 08/29/24 16:40 Respiratory Effort Normal 08/29/24 16:30 Respiratory Depth Normal 08/29/24 16:30 Respiratory Pattern Normal 08/29/24 16:30 Blood Pressure 140/83 08/29/24 16:30 Blood Pressure Mean 102 08/29/24 16:30 Blood Pressure Position Supine 08/29/24 16:30 Pulse Oximetry 92 08/29/24 16:30 Oxygen Delivery Method Room Air 08/29/24 16:30 Oxygen Flow Rate 0 08/29/24 16:30 Pain Level 5 08/29/24 16:30 Allergies atorvastatin (From Lipitor) Allergy (Verified 08/29/24 07:38) Unknown Precautions Isolation Standard precaution 08/29/24 07:36 Active Medications Generic Name Dose Route Start Last Admin Trade Name Freq PRN Reason Stop Dose Admin Heparin Sodium/Sodium Chloride 25,000 unit in 250 mls @ 10 mls/hr 08/29/24 08:45 08/29/24 08:58 IVINF 1,000 units/hr INFUSION TISHA 10 mls/hr Administration Protocol 1,000 UNITS/HR Nitroglycerin/Dextrose 50 mg in 250 mls @ 1.5 mls/hr 08/29/24 08:45 08/29/24 09:46 IV 15 mcg/min INFUSION TISHA 4.5 mls/hr Titration Protocol 5 MCG/MIN Nitroglycerin 0.4 mg 08/29/24 08:00 08/29/24 08:13 Nitroglycerin 0.4 Mg Tab SL 0.4 mg Q5 MIN PRN X3 PRN Administration Sodium Chloride 0 ml 08/29/24 07:29 08/29/24 07:46 Normal Saline Flush 10 Ml Syr IVP 20 ml PRN PRN Administration IV IV Catheter Type [Left Diffusics Antecubital] IV Catheter Type [Right Diffusics Antecubital] IV Catheter Gauge [Left 20 Antecubital] IV Catheter Gauge [Right 20 Antecubital] Diet Orders Category Date Time Status Diabetes Consistent CHO/Heart Healthy [DIET] Nutrition 08/29/24 Dinner Active Nothing Per Oral [DIET] Nutrition 08/30/24 Breakfast Ordered Diagnostics 08/29/24 08/29/24 08/29/24 Range/Units 10:45 09:54 08:40 WBC (4.4-10.8) 10^3/uL RBC (4.36-5.78) 10^6/uL Hgb (13.5-17.5) g/dL Hct (40.0-50.0) % MCV (80-95) fL MCH (27.0-33.0) pg MCHC (32.0-36.0) % RDW (11.8-14.1) % Plt Count (130-400) 10^3/uL MPV (8.0-11.0) fL Immature Gran % % Neutrophils % % Lymphocytes % % Monocytes % % Eosinophils % % Basophils % % Nucleated RBC % (0.0-0.3) % Absolute Neutrophils (1.2-6.7) 10^3/uL Absolute Lymphocytes (1.2-3.4) 10^3/uL Absolute Monocytes (0.1-0.8) 10^3/uL Absolute Eosinophils (0.0-0.7) 10^3/uL Absolute Basophils (0.0-0.2) 10^3/uL PT (9.1-11.1) sec INR (0.9-1.1) APTT (20.6-30.2) sec VBG pH (7.31-7.41) VBG pCO2 (41-51) mmHg VBG pO2 mmHg VBG HCO3 (23-28) mmol/L VBG Total CO2 (24-29) mmol/L VBG O2 Saturation % VBG Base Excess (-2-3) mmol/L Sodium (136-145) mmol/L Potassium (3.5-5.1) mmol/L Chloride (98-107) mmol/L Carbon Dioxide (21.0-32.0) mmol/L Anion Gap (3-11) mmol/L BUN (7-18) mg/dL Creatinine (0.70-1.30) mg/dL Est GFR (CKD-EPI 2020) (mL/min/1.73m2) Glucose (74-106) mg/dL Calcium (8.5-10.1) mg/dL Magnesium (1.8-2.4) mg/dL Total Bilirubin (0.2-1.0) mg/dL AST (15-37) U/L ALT (16-63) U/L Alkaline Phosphatase (46-116) U/L Troponin I 3134 H* 4981 H* (<or=76) ng/L NT-Pro-B Natriuret Pep (<300) pg/mL Total Protein (6.4-8.2) g/dL Albumin (3.4-5.0) g/dL Procalcitonin ng/mL TSH (0.36-3.74) uIU/mL Urine Color Yellow (Yellow) Urine Clarity Clear (Clear) Urine pH 6.5 (5-8) Ur Specific [place] 1.010 (1.005-1.025) Urine Protein Negative (Neg-Trace) mg/dL Urine Ketones Negative (Negative) mg/dL Urine Blood Trace-intact H (Negative) Urine Nitrite Negative (Negative) Urine Bilirubin Negative (Negative) Urine Urobilinogen 0.2 (Up to 0.2) mg/dL Ur Leukocyte Esterase Small H (Negative) Urine RBC 3-5 H (0-2) HPF Urine WBC 5-10 (0-5) HPF Ur Epithelial Cells Rare (Negative) HPF Urine Crystals Negative (Negative) HPF Urine Bacteria Moderate (Negative) HPF Urine Casts Negative (Negative) LPF Urine Mucus Negative (Negative) Ur Culture Indicated? No Urine Glucose Negative (Negative) mg/dL COVID-19 Source SARS-CoV-2 (PCR) (Negative) Influenza Type A (PCR) (Negative) Influenza Type B (PCR) (Negative) RSV (PCR) (Negative) 08/29/24 Range/Units 07:45 WBC 18.61 H (4.4-10.8) 10^3/uL RBC 3.30 L (4.36-5.78) 10^6/uL Hgb 11.4 L (13.5-17.5) g/dL Hct 35.7 L (40.0-50.0) % MCV 108 H (80-95) fL MCH 34.5 H (27.0-33.0) pg MCHC 31.9 L (32.0-36.0) % RDW 14.4 H (11.8-14.1) % Plt Count 343 (130-400) 10^3/uL MPV 9.6 (8.0-11.0) fL Immature Gran % 0.8 % Neutrophils % 77.4 % Lymphocytes % 11.2 % Monocytes % 8.9 % Eosinophils % 1.4 % Basophils % 0.3 % Nucleated RBC % 0.1 (0.0-0.3) % Absolute Neutrophils 14.40 H (1.2-6.7) 10^3/uL Absolute Lymphocytes 2.08 (1.2-3.4) 10^3/uL Absolute Monocytes 1.66 H (0.1-0.8) 10^3/uL Absolute Eosinophils 0.26 (0.0-0.7) 10^3/uL Absolute Basophils 0.06 (0.0-0.2) 10^3/uL PT 10.5 (9.1-11.1) sec INR 1.0 (0.9-1.1) APTT 18.3 L (20.6-30.2) sec VBG pH 7.33 (7.31-7.41) VBG pCO2 58 H (41-51) mmHg VBG pO2 35 mmHg VBG HCO3 30 H (23-28) mmol/L VBG Total CO2 28 (24-29) mmol/L VBG O2 Saturation 56 % VBG Base Excess 4 H (-2-3) mmol/L Sodium 143 (136-145) mmol/L Potassium 3.2 L (3.5-5.1) mmol/L Chloride 102 (98-107) mmol/L Carbon Dioxide 30.2 (21.0-32.0) mmol/L Anion Gap 10.8 (3-11) mmol/L BUN 41 H (7-18) mg/dL Creatinine 1.9 H (0.70-1.30) mg/dL Est GFR (CKD-EPI 2020) 34.79 (mL/min/1.73m2) Glucose 41 L* (74-106) mg/dL Calcium 10.0 (8.5-10.1) mg/dL Magnesium 2.0 (1.8-2.4) mg/dL Total Bilirubin 0.8 (0.2-1.0) mg/dL AST 19 (15-37) U/L ALT 23 (16-63) U/L Alkaline Phosphatase 41 L (46-116) U/L Troponin I 6449 H* (<or=76) ng/L NT-Pro-B Natriuret Pep 75915 H (<300) pg/mL Total Protein 6.9 (6.4-8.2) g/dL Albumin 3.3 L (3.4-5.0) g/dL Procalcitonin < 0.10 ng/mL TSH 1.61 (0.36-3.74) uIU/mL Urine Color (Yellow) Urine Clarity (Clear) Urine pH (5-8) Ur Specific [place] (1.005-1.025) Urine Protein (Neg-Trace) mg/dL Urine Ketones (Negative) mg/dL Urine Blood (Negative) Urine Nitrite (Negative) Urine Bilirubin (Negative) Urine Urobilinogen (Up to 0.2) mg/dL Ur Leukocyte Esterase (Negative) Urine RBC (0-2) HPF Urine WBC (0-5) HPF Ur Epithelial Cells (Negative) HPF Urine Crystals (Negative) HPF Urine Bacteria (Negative) HPF Urine Casts (Negative) LPF Urine Mucus (Negative) Ur Culture Indicated? Urine Glucose (Negative) mg/dL COVID-19 Source Nasopharynx SARS-CoV-2 (PCR) Negative (Negative) Influenza Type A (PCR) Negative (Negative) Influenza Type B (PCR) Negative (Negative) RSV (PCR) Negative (Negative) 08/29/24 08:40 Blood Culture - Pending Blood 08/29/24 08:38 Blood Culture - Pending Blood [id number] Documentation Fingerstick Glucose Start: 08/29/24 08:52 Freq: Status: Complete Protocol: Activity Type Activity Date Activity User E-sign Co-sign Detail Recorded Client Recorded Date Recorded By Document 08/29/24 13:50 BKG DAEMON(5) [id number] 08/29/24 13:50 BKG DAEMON(6) Fingerstick Glucose Start: 08/29/24 15:51 Freq: AC & HS Status: Active Protocol: Activity Type Activity Date Activity User E-sign Co-sign Detail Recorded Client Recorded Date Recorded By Document 08/29/24 17:00 BKG DAEMON(7) [id number] 08/29/24 17:02 BKG DAEMON(8) Intake and Output - 24 Hour Total 08/29/24 07:22 thru 08/29/24 16:30 Intake Total 121.325 Output Total 540 Balance -418.675 Weight 86.8 kg Intake: IV 121.325 Output: Urine 540 Falls Risk Assessment History of Falls Previous History 08/29/24 16:30 Contributing Factors No Factors 08/29/24 16:30 Ambulatory Aids Uses ambulatory device + 08/29/24 16:30 Tubes/Lines With any additional score 08/29/24 16:30 Gait Evaluation W/any additional score 08/29/24 16:30 Cognition No cognitive impairment 08/29/24 16:30 Fall Total Score 85 08/29/24 16:30 Level of Risk Maximum Risk 08/29/24 16:30 Problems (Last Reviewed 08/24/24 @ 03:22 by Teodoro Beltran MD) Acute non-ST elevation myocardial infarction (NSTEMI) (Acute) v v v v v v v v v Sending and/or Receiving Nurses: Please use comment section below to note any information pertinent to the patient hand-off not included above. Information / Comments: Report received from: Frankie Pyle RN
[2024-08-29] MEDS: Insulin Aspart 300 UNITS/3 ML PEN SC ×2 (17:35→23:20)
--- NOTE | 2024-08-29 19:00 | RT.EKG_ITS ---
APPROVED REPORT Exam: Resting ECG Reason for Exam: NSTEMI Patient Location: I HR:77 bpm ECG Measurements Heart Rate 77 AXIS CO 237 P 46 QRSd 174 QRS 109 QT 461 T 37 QTc 522 Conclusion Sinus rhythm...normal P axis, V-rate 50- 99 Atrial premature complex...SV complex w/ short R-R interval Prolonged CO interval...CO >220, V-rate 50- 90 Right bundle branch block...QRSd>120, terminal axis(90,270) ST depression, consider ischemia, diffuse lds...ST <-0.10mV, ant/lat/inf
[2024-08-29] MEDS: Dorzolamide 2% 10 ML BTL OD (19:37)
[2024-08-29] MEDS: Timolol 0.5% 5 ML BTL 10 ML OD (19:39)
[2024-08-29 20:00] LABS: Troponin I 8531 ng/L (<or=76)
[2024-08-29 22:39] LABS: Troponin I 20437 ng/L (<or=76)
[2024-08-29] MEDS: POTASSIUM CHLORIDE 20 MEQ/100 ML BAG 50 MEQ IV_INF (23:41)
[2024-08-30] VITALS (42 sets, daily range): BP systolic 64–113; BP diastolic 38–84; PULSE 56–85; RESP 13–22; O2SAT 94–100
--- NOTE | 2024-08-30 00:15 | RT.EKG_ITS ---
APPROVED REPORT Exam: Resting ECG Reason for Exam: Shoulder pain Patient Location: I HR:67 bpm ECG Measurements Heart Rate 67 AXIS NJ 219 P 63 QRSd 157 QRS 111 QT 424 T 260 QTc 448 Conclusion Sinus rhythm...normal P axis, V-rate 50- 99 Multiform ventricular premature complexes...short R-R, variable morphology Borderline prolonged NJ interval...NJ >212, V-rate 50- 90 Probable left atrial enlargement...P >50mS, <-0.10mV V1 Right bundle branch block...QRSd>120, terminal axis(90,270) Anteroseptal infarct, age indeterminate...Q >35mS, T neg, V1-V2 Lateral leads are also involved...lat Q or ST-T abnormalities
[2024-08-30 00:34] LABS: Anion Gap 7.2 mmol/L (3-11); BUN 43 mg/dL (7-18); CO2 30.8 mmol/L (21.0-32.0); CREATININE 1.5 mg/dL (0.70-1.30); Calcium 9.1 mg/dL (8.5-10.1); Chloride 99 mmol/L (98-107); Estimated GFR 46.19 (mL/min/1.73m2); Glucose 167 mg/dL (74-106); Sodium 137 mmol/L (136-145)
[2024-08-30 00:37] LABS: PTT Activated 36.5 sec (20.6-30.2); Potassium 4.5 mmol/L (3.5-5.1)
[2024-08-30 01:48] LABS: PTT Activated 51.3 sec (20.6-30.2)
[2024-08-30 01:55] LABS: Anion Gap 5.2 mmol/L (3-11); BUN 42 mg/dL (7-18); CO2 33.8 mmol/L (21.0-32.0); CREATININE 1.6 mg/dL (0.70-1.30); Chloride 99 mmol/L (98-107); Estimated GFR 42.75 (mL/min/1.73m2); Glucose 124 mg/dL (74-106); Potassium 4.2 mmol/L (3.5-5.1); Sodium 138 mmol/L (136-145)
[2024-08-30 02:30] LABS: Troponin I 37962 ng/L (<or=76)
[2024-08-30] MEDS: Acetaminophen 325 MG TAB PO (03:48)
[2024-08-30] MEDS: Heparin in 0.45% NaCl 25,000 UNIT/250 ML BAG 10 UNIT IVINF (04:11)
[2024-08-30] MEDS: Normal Saline Flush 10 ML SYR IVP ×2 (04:27→08:52)
[2024-08-30] MEDS: nitroGLYcerin in D5W 50 MG/250 ML BTL 18 MG IV (04:35)
[2024-08-30 04:44] LABS: HCT 29.6 % (40.0-50.0); HGB 9.6 g/dL (13.5-17.5); MCH 34.5 pg (27.0-33.0); MCHC 32.4 % (32.0-36.0); MPV 9.4 fL (8.0-11.0); Platelet Count 248 10^3/uL (130-400); RBC 2.78 10^6/uL (4.36-5.78); RDW 14.2 % (11.8-14.1); RDW-SD 55.2 fL; WBC 12.85 10^3/uL (4.4-10.8)
[2024-08-30 04:55] LABS: MCV 107 fL (80-95)
[2024-08-30 04:56] LABS: Anion Gap 8.3 mmol/L (3-11); BUN 40 mg/dL (7-18); CO2 31.7 mmol/L (21.0-32.0); CREATININE 1.4 mg/dL (0.70-1.30); Calcium 8.9 mg/dL (8.5-10.1); Chloride 98 mmol/L (98-107); Estimated GFR 50.18 (mL/min/1.73m2); Glucose 106 mg/dL (74-106); Potassium 3.7 mmol/L (3.5-5.1); Sodium 138 mmol/L (136-145)
--- NOTE | 2024-08-30 05:33 | CE_ITS ---
Date of service: 08/30/24 Time of Service: 05:33 Event Note: This is an 84-year-old gentleman who presented to the ED with progressive dyspnea upon exertion and chest pressure with radiation of pain to his left arm. He did get admitted for non-STEMI and was placed on heparin with nitroglycerin infusion for his chest pain. He also was given narcotics in the ED. He was pain-free in the ED until transfer up to the ICU and had some increasing chest discomfort and shortness of breath moving from his gurney to his bed in the ICU. This pain did resolve with increasing his nitroglycerin infusion. His troponins were positive in the ED at 6,149 but trending downward at 4,981 and then 3,134. His last measurement was at 10 in the morning the day of admission. Because of his episode upon transfer from his bed at around 18:00 in the ICU, I repeated troponin which increased to 8531. Repeat EKG was unchanged. I did discuss case with Teodoro Theodore MD, the cold header operator at [facility] who had called me initially to review the patient's case because of his EKG changes with right upper metabolic and left anterior fascicular block and left lateral ST segment depressions. I did call back and discussed his increasing troponin with the patient at that time pain-free. Later in the evening the patient had his ni troglycerin drip decreased and he had recurrent left arm discomfort but no chest pressure. He also had increased oxygen needs. He was not short of breath. I repeated his troponin which increased to 20,437 and then was followed 3 hours increasing to 37,962 again with patient pain-free. I had recalled the age of the age increase and troponins report to the cold header operator who will get a bed as soon as possible the morning of 08/30/2024. I did discuss the patient's CODE STATUS with him and he was very clear that he wanted to be a DNR/DNI realizes that his heart was not doing well he was very with his heart disease at home. He does stay with his who has AML and walks with a cane. He states that his sometimes does not agree with his decision but this is clearly his decision. 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 He does live with his . Physical exam was benign during his episode with repeat left arm pain when attempting to decrease effusion. His lungs were essentially clear with fair aeration heart distant heart sounds with normal heart rate. His left arm was not tender to palpation but it did have some slight discomfort in his left shoulder with movement. Abdomen was soft nontender.. He had no significant peripheral edema. Skin was warm and dry. Assessment/plan: Non-STEMI with unstable angina and stuttering symptoms on maximal therapy with heparin infusion and nitroglycerin infusion. Patient will be transferred to [facility] when bed is available in the morning. He will remain NPO. He is a DNR/DNI Time Spent with Patient Time spent in critical care(minutes): 60 Time Spent Included: Coordination of care, Chart review, Documenting critically ill care, Time at immediate bedside, Discussing critically ill care with other medical staff and Other (Reviewing and updating code status)
[2024-08-30] MEDS: Levothyroxine 100 MCG TAB PO (06:29)
[2024-08-30 08:04] LABS: PTT Activated 54.9 sec (20.6-30.2)
[2024-08-30 08:42] LABS: Troponin I > 75000 ng/L (<or=76)
[2024-08-30] MEDS: Losartan 50 MG TAB 100 MG PO (08:51)
[2024-08-30] MEDS: Aspirin E.C. 81 MG TABEC PO (08:51)
[2024-08-30] MEDS: Timolol 0.5% 5 ML BTL 10 ML OD (08:51)
[2024-08-30] MEDS: Furosemide 40 MG TAB PO (08:51)
[2024-08-30] MEDS: Clopidogrel 75 MG TAB PO (08:51)
[2024-08-30] MEDS: predniSONE 10 MG TAB PO (08:52)
[2024-08-30] MEDS: Pantoprazole 40 MG TABCR PO (08:52)
[2024-08-30] MEDS: Dorzolamide 2% 10 ML BTL OD (08:53)
--- NOTE | 2024-08-30 09:00 | PDOC.CMIN ---
Date of service: 08/30/24 Time of Service: 09:00 Care Management Initial Assmt Initial Assessment Reason for Hospitalization: NSTEMI Functional Status/Living Situation Patient Presentation: Russell is admitted to the ICU for close monitoring and treatment following his NSTEMI. He had stents placed at [facility] last week and is being transfer back to [facility] under the services of Dr. Rodríguez. He was awake and lying in bed when CM met with him. His good friend Ming Waller arrived for a quick visit and there interaction was quite comical. CM spoke with his Nicol via phone to let her know that [facility] has a bed and EMS is here now to pick him up. 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 Nicol also has ALS and is getting treatment in [place]. Town of Residence: [place] Resides with: Spouse (Nicol) Significant Other/Family: Local Natural Supports: Supportive family and friends Employment Status: Retired (Instrument Repair Specialist) Instrumental Activities of Daily Living (ADLs): Independent Medications Medication Management: No Issues/Barriers identified Advance Directives Advance Directives: Do you have an Advance Directive: N 10/25/17 16:49 AD On File at [facility]: N 09/13/12 12:03 Date Asked 08/29/24 08/29/24 09:01 AD Date Reviewed 08/29/24 08/29/24 16:14 COLST On File at [facility] No 08/24/22 16:03 COLST Date Scanned Code Status Resuscitation Status DNR/DNI Portal Pt does not currently have a portal and education provided: Yes Insurance Coverage/Financial Issues Insurance: BC/BS [facility] - [id number] Care Team Visit Care Team Role Provider Type Gardenia Smyth Primary Care Provider NON-[facility] STAFF PHYSICIAN Kennedy Mccurdy MD Emergency Provider [facility] STAFF PHYSICIAN Nitin Estrella MD Admit Provider [facility] STAFF PHYSICIAN Attending Provider Discharge Anticipated Barriers to Discharge: Medical Status Patient/Family Education Needs: Review discharge instructions, discuss Ask Me Three Transportation: EMS Plan: Russell [facility] a [facility] and has been accepted by the services of Dr. Rodríguez from [facility] Cardiology, pending bed availability. Transportation will be coordinated by nursing when bed availability has been confirmed. Social Determinants of Health Screening Social Determinants of health last assessed in clinic: 08/30/24 Will the Patient Participate in the Screening?: Yes Do you worry about having a steady place to live?: yes What is your living situation today?: I have housing today, but am worried about losing it Problems where you live: no known problems In the past 12 months, have you had to go without electric, gas, oil or water in your home?: yes 1. Within the past 12 months, we worried whether our food would run out before we got money to buy more.: Never true 2. Within the past 12 months, the food we bought just didn't last and we didn't have money to get more.: Never true Has lack of transportation kept you from medical appointments or from doing things needed for daily living?: no Has anyone in your life made you feel unsafe or unsupported?: no How hard is it for you to pay for the very basics like food, housing, medical care, and heating? Would you say it is:: Not hard at all Do you want help finding or keeping work or a job?: I do not need or want help If for any reason you need help with day-to-day activities such as bathing, preparing meals, shopping, managing finances, etc., do you get the help you need?: I don?t need any help How often do you feel lonely or isolated from those around you?: Never Do you speak a language other than Omani at home?: No Does the patient want assistance with any of the above?: No Health Related Social Needs Health related social needs: housing instability, housed, with risk of homelessness (Z59.811) and material hardship(utilities) (Z59.12) Health related social needs details: none stated PFSH All Active Problems (Updated 08/29/24 @ 10:15 by Kennedy Mccurdy MD) Back pain, thoracic (Acute) Acute non-ST elevation myocardial infarction (NSTEMI) (Acute) Medical History Hypothyroid Hyperlipidemia CVA (cerebral vascular accident) CAD (coronary artery disease) Diabetes HTN (hypertension) Surgical History History of heart artery stent S/P CABG (coronary artery bypass graft) S/P carotid endarterectomy Social History Smoking/Tobacco Use Status: Never Smoking risk assessment performed?: Yes Alcohol Intake: never Drug use: Never Substance use type: does not use Housing: house Do you feel safe at home: Yes Do you feel safe in your relationship?: Yes
--- NOTE | 2024-08-30 09:07 | CMDISCH_ITS ---
Date of service: 08/30/24 Time of Service: 09:07 LACE Index Scoring Tool Questions: Length of Stay (in days): 1 Was the patient admitted via the E.D.?: Yes Comorbidities: Previous M.I. E.D. Visits: 2 Answers: Total Score: 7 Risk of Readmission: Low Risk Care Management Discharge Plan Reason for Hospitalization: NSTEMI Discharge Plan: Russell has been accepted for transfer to [facility] by Dr. Rodríguez. EMS will transport. CM notified his Nicol before departure and she is planning to meet him there. Patient/Family Education Needs: Review transfer instructions, discuss ask me three. Services Needed at Discharge: Transportation ([facility], coordinated by RN [facility] Department Supervisor) SDOH Health Related Social Needs: Health related social needs housing instability, house d, with risk of homelessness (Z59.811), material hardship(utilities) (Z59.12) Health related social needs details none stated Health related social needs details: none stated
--- NOTE | 2024-08-30 11:02 | PHA.REVIEW2 ---
Pharmacy Admission Review Admission Clinical Review Admission Pharmacy Review: Acute non-ST elevation myocardial infarction (NSTEMI) (Acute) atorvastatin (From Lipitor) Allergy (Verified 08/29/24 07:38) Unknown Resuscitation Status DNR/DNI Height 5 ft 9 in Weight 86.8 kg Comments Comments/Follow Ups: Accepted to [facility] for transfer pending bed availability Pharmacy Admission Review Renal Dosing Renal Dosing: BUN 40 mg/dL (7-18) H 08/30/24 04:32 Creatinine 1.4 mg/dL (0.70-1.30) H 08/30/24 04:32 Medications needing adjustments: Reviewed (CrCl 44.3 mL/min, BUN decreased from 41 and SCr decreased from 1.9) List of meds needing interventions: Current medications are okay Anticoagulation Anticoagulation: Hgb 9.6 g/dL (13.5-17.5) L 08/30/24 04:32 Hct 29.6 % (40.0-50.0) L 08/30/24 04:32 Plt Count 248 10^3/uL (130-400) 08/30/24 04:32 INR 1.0 (0.9-1.1) 08/29/24 07:45 Creatinine 1.4 mg/dL (0.70-1.30) H 08/30/24 04:32 Therapeutic Anticoagulation: Reviewed (last aPTT 54.9 @0725) Medications: Heparin (@ 1000 units/hr) Relevant Labs Relevant Labs: Sodium 138 mmol/L (136-145) 08/30/24 04:32 Potassium 3.7 mmol/L (3.5-5.1) 08/30/24 04:32 Chloride 98 mmol/L (98-107) 08/30/24 04:32 Magnesium 2.0 mg/dL (1.8-2.4) 08/30/24 00:14 Electrolytes, C-Reactive P, ESR: Reviewed (WBC decreased from 18.61 to 12.85) DM Control DM Control: Glucose 106 mg/dL (74-106) 08/30/24 04:32 Finger Stick Blood Glucose 109 0855 Finger Stick Blood Glucose 109 0855 Finger Stick Blood Glucose 109 0855 DM Control: Reviewed Insulin Dosing, Diabetic Medication: Has order for SS insulin and metformin 500mg BID Cardiac Review Cardiac Review: Troponin I > 75865 ng/L (<or=76) H* 77244 ng/L (<or=76) H* 14937 ng/L (<or=76) H* 96696 ng/L (<or=76) H* 8531 ng/L (<or=76) H* 3134 ng/L (<or=76) H* 4981 ng/L (<or=76) H* 6449 ng/L (<or=76) H* 08/30/24 07:25 08/30/24 04:32 08/30/24 01:25 08/29/24 22:10 08/29/24 19:28 08/29/24 10:45 08/29/24 08:40 08/29/24 07:45 NT-Pro-B Natriuret Pep 69491 pg/mL (<300) H 08/29/24 07:45 BP, HR, EF%: Reviewed (BP and HR WNL, oxygen flow rate = 2) List meds needing interventions: Has order for furosemide 40mg daily. Currently on nitroglycerin infusion running at 60 mcg/min. QTc Review QTc: Reviewed (448 from 08/30/24) IV to PO Switch IV Medications: Reviewed (NPO - transferring to [facility]) Home Meds Home Med List reviewed: Reviewed Relevent Home Meds Not ordered & why?: azathioprine, vitamin D3, diazepam (PRN), folic acid, gabapentin, multivitamin, isosorbide, methotrexate and metoprolol Current Meds Current Medication Order Review: Reviewed Comments Comments/Follow Ups: Accepted to [facility] for transfer pending bed availability
--- NOTE | 2024-08-30 11:33 | W.PALLCONSUL ---
Date of service: 08/30/24 Time of Service: 12:40 History of Present Illness Narrative: Russell was seen in his ICU room. He was alone at the time of the visit. He is awaiting transfer to [facility] for treatment of NSTEMI. He does not believe he has met with palliative care in the past. He had a rapid response early this morning at which time he had a discussion with the hospitalist about CODE STATUS and he opted to be a DNR/DNI. This was reviewed during his visit and a COLST form was completed. Despite his CODE STATUS, he is open to going back to [facility]. Reviewed overall goals, he hopes to be home through the end of his life. He understands his heart is not good. He has advanced directives on file. He would like to change his healthcare agent to his sons Tucker (1) and Dell (2). He wants his to be consulted as well but he does not want to cause stress for her. He also would like his sons, Thao and Dileep to be consulted if needed but he wants Tucker to be the spokes person. He had another son who at 26 years old of ALS. His also has ALS. She has a very strong Hx of ALS. Nicol has been going to [place] for treatment which has actually slowed the disease progression. They have been for 61 years, their anniversary is 03/02. Assessment and Plan Assessment and plan (1) Acute non-ST elevation myocardial infarction (NSTEMI): Status: Acute Assessment and plan: -patient recently at [facility] on 08/24 for NSTEMI with peak trop of ~4K and recieved ballon angioplasty -presents back with SOB, chest pain, and peak trop of over 6K -patient was started on ASA, plavix and heparin drip with improvement of trop down to ~3K -continue daily ASA, plavix, heparin drip -continue nitro drip for chest pain He was accepted and transferred to [facility]. (2) CAD (coronary artery disease): Assessment and plan: -as noted above -continue ASA, plavix, metoprolol -patient has documented allergy to statin (3) HTN (hypertension): Assessment and plan: -hold home losartan at this time (4) Diabetes: (5) Hypothyroid: Assessment and plan: On synthroid (6) Palliative care encounter: Status: Acute Assessment and plan: Russell is a very pleasant 84-year-old man who lives at home with his . His has ALS. He is a former water tester. He is currently in the ICU awaiting transfer to [facility]. He has decided to change his CODE STATUS to DNR/DNI, COLST completed. Reviewed HCA, he named his sons: Tucker (1) and Dell (2). He wants his to be consulted as well but he does not want to cause stress for her. He also would like his sons, Thao and Dileep to be consulted if needed but he wants Tucker to be the spokes person. Tucker is the oldest. He is agreeable to going back to [facility]. His goal is to get back home. He wants to be home through the end of his life. He is very open to follow-up with palliative care. He thinks his may also benefit from the service. Will have the palliative office reach out to Donna once he gets back home. Review of Systems Narrative: He denied concerns the first time we met but reported a headache and nursing reported hypotension with systolic readings in the 60s and 70s at our second visit of the day. PFSH All Active Problems (Updated 08/30/24 @ 17:37 by Eliza Uribe NP) Palliative care encounter (Acute) Back pain, thoracic (Acute) Acute non-ST elevation myocardial infarction (NSTEMI) (Acute) Medical History Hypothyroid Hyperlipidemia CVA (cerebral vascular accident) CAD (coronary artery disease) Diabetes HTN (hypertension) Surgical History History of heart artery stent S/P CABG (coronary artery bypass graft) S/P carotid endarterectomy Social History Smoking/Tobacco Use Status: Never Smoking risk assessment performed?: Yes Alcohol Intake: never Drug use: Never Substance use type: does not use Housing: house Do you feel safe at home: Yes Do you feel safe in your relationship?: Yes Exam Narrative Exam Narrative: General: Very pleasant and calm elderly man, he is well-nourished, laying in the bed with head of bed elevated. He was awake and alert during our first meeting, appeared more fatigued during the second meeting. Skin is pale. HEENT: Normocephalic, atraumatic, EOMI, mucous membranes dry. Respiratory: Respirations appear even and unlabored at rest and with talking. Extremities: Moves extremities freely. Results Last Vital Signs Temp 36.5 C 08/29/24 16:30 Pulse 72 08/30/24 07:01 Resp 18 08/30/24 07:30 BP 107/75 08/30/24 07:01 Pulse Ox 98 08/30/24 09:24 Labs 08/30/24 04:32 08/30/24 04:32 Labs: Laboratory Results - last 24 hr 08/29/24 08/29/24 08/29/24 16:09 19:28 22:10 WBC RBC Hgb Hct MCV MCH MCHC RDW Plt Count MPV APTT 96.0 H* Sodium Potassium Chloride Carbon Dioxide Anion Gap BUN Creatinine Est GFR (CKD-EPI 2020) Glucose Calcium Magnesium Troponin I 8531 H* 96116 H* 08/30/24 08/30/24 08/30/24 00:14 01:25 04:32 WBC 12.85 H RBC 2.78 L Hgb 9.6 L Hct 29.6 L MCV 107 H MCH 34.5 H MCHC 32.4 RDW 14.2 H Plt Count 248 MPV 9.4 APTT 36.5 H 51.3 H Sodium 137 138 138 Potassium 4.5 D 4.2 3.7 Chloride 99 99 98 Carbon Dioxide 30.8 33.8 H 31.7 Anion Gap 7.2 5.2 8.3 BUN 43 H 42 H 40 H Creatinine 1.5 H 1.6 H 1.4 H Est GFR (CKD-EPI 2020) 46.19 42.75 50.18 Glucose 167 H 124 H 106 Calcium 9.1 9.0 8.9 Magnesium 2.0 Troponin I 37432 H* 06194 H* 08/30/24 07:25 WBC RBC Hgb Hct MCV MCH MCHC RDW Plt Count MPV APTT 54.9 H Sodium Potassium Chloride Carbon Dioxide Anion Gap BUN Creatinine Est GFR (CKD-EPI 2020) Glucose Calcium Magnesium Troponin I > 48076 H* Time Spent Time Spent with Patient Time Spent(min): 92
[2024-08-30] MEDS: Insulin Aspart 300 UNITS/3 ML PEN SC (13:16)
--- NOTE | 2024-08-30 14:34 | W.PM.DS.N ---
Date of service: 08/30/24 Time of Service: 14:34 DS: Diagnosis Discharge Diagnosis (1) Acute non-ST elevation myocardial infarction (NSTEMI): Status: Acute (2) CAD (coronary artery disease): (3) HTN (hypertension): (4) Diabetes: (5) Hypothyroid: Discharge Plan Disposition Patient Disposition: Transfer-Acute Inpatient Care Specific Acute Inpt Facility: [facility] Condition: Serious Discharge Details Reason For Visit: NSTEMI Admit Date/Time: 08/29/24 15:48 Admit Provider: Nitin Estrella Attending Provider: Nitin Estrella Primary Care Provider: Gardenia Smyth Hospital Course Hospital Course: Patient presented to the ED with SOB after being [place] [facility] [place]25[place]08[place]26 for NSTEMI resulting in ballon angioplasty. Patients SOB progressed to chest pain while in the ED and was determined to have NSTEMI with trop of ~6K. He was started on heparin drip, given ASA and plavix, and placed on nitro drip which improved his chest pain and SOB. However, overnight 08/29 the patients chest pain got worse and trop was rechecked and found to be 40K. This was discussed with cardiology who was concerned, but had no additional recommendations as the patient remained chest pain free and did not have any EKG changes. Ultimately a bed was made available and it was determined meghna the patient was stable for transfer to to [facility]. Home Meds and New Rx's Prescriptions: No Action azathioprine 50 MG tablet 150 mg PO DAILY clopidogrel [Plavix] 75 MG tablet 75 mg PO DAILY aspirin [Aspir-81] 81 MG tablet,delayed release (DR/EC) 81 mg PO DAILY levothyroxine 100 MCG tablet 100 mcg PO DAILY methotrexate sodium 2.5 MG tablet 15 mg PO DIRECTED nitroglycerin [Nitrostat] 0.4 MG tablet, sublingual 0.4 mg Sublingual DIRECTED PRN folic acid 1 MG tablet 1 mg PO DAILY dorzolamide-timolol 10 ML drops 10 ml OD BID Complete Senior 1 EACH tablet 1 ea PO DAILY cholecalciferol (vitamin D3) 1,000 UNIT tablet 1,000 unit PO BID acetaminophen [Tylenol] 325 MG tablet 650 mg PO Q4H PRN PRN0RF ipratropium-albuterol 3 ML solution for nebulization 3 ml UPD Q6H PRN PRN0RF polyethylene glycol 3350 17 GM powder in packet 17 gm PO DAILY PRN PRN (Reason: Constipation) 0RF docusate sodium [Colace] 100 MG capsule 100 mg PO TID PRN PRN0RF alum-mag hydroxide-simeth [Mag-Al Plus] 30 ML suspension 30 ml PO Q2H PRN PRN0RF insulin aspart U-100 [Novolog FlexPen U-100 Insulin] 300 UNITS/3 ML insulin pen 0 units Sub-Q 0800,1200,1700 0RF Humulin N NPH U-100 Insulin 100 UNIT/ML suspension 100 unit SQ DIRECTED Qty: 0 0RF Patient Comments: sliding scale Rx Instructions: CURRENTLY ON HOLD metformin 500 mg tablet 1 tab PO BID gabapentin 100 mg capsule 1 cap PO TID Patient Comments: TAKE ONE CAPSULE BY MOUTH THREE TIMES A DAY FOR NECK AND ARM PAIN /TINGLING metoprolol succinate 25 mg tablet extended release 24 hr 1 tab PO DAILY diclofenac sodium 1 % gel 1 applic TOPICAL BID pantoprazole 40 mg tablet,delayed release (DR/EC) 40 mg PO QAM losartan 100 mg tablet 100 mg PO DAILY isosorbide mononitrate 30 mg tablet extended release 24 hr 30 mg PO DAILY furosemide 40 mg tablet 40 mg PO DAILY Patient Comments: TAKE ONE TABLET BY MOUTH EVERY DAY prednisone 10 mg tablet 10 mg PO DAILY diazepam 5 mg tablet 5 mg PO TID PRN (Reason: muscle spasm) Qty: 10 0RF Discharge Instructions Activity:: Activity as Tolerated Equipment/Supplies:: No Equipment Needed Diet:: As Tolerated Discharge Orders Discharge Orders: Discharge Order (Routine); Ordered 08/30/24 Ordered By: Nitin Estrella DS: Summary Time Spent with Patient providing and/or coordinating discharge services: Greater than 30 minutes Status at Discharge Functional status at discharge: independent ambulation Overall status at discharge: patient is back to baseline Mental Status: mental status grossly normal Speech and Movement: speech and movement normal Mood: congruent mood Affect: normal affect Quality:SDOH Health Related Social Needs: Health related social needs housing instability, housed, with risk of homelessness (Z59.811), material hardship(utilities) (Z59.12) Health related social needs details none stated Health related social needs details: none stated Exam Narrative Exam Narrative: well appearing older gentleman laying in bed in no acute distress, AOx4, heart RRR, lungs CTAB, abdomen soft, non-tender, non-distended Psych Mental Status: mental status grossly normal Speech and Movement: speech and movement normal Mood: congruent mood Affect: normal affect DS: Data Vitals/I&O Vitals and I&O: Vital Signs Temperature 97.7 F 08/29/24 16:30 Temperature Source Temporal Artery Scan 08/29/24 16:30 Pulse 65 08/30/24 14:08 Pulse 63 08/30/24 14:08 Respiratory Rate 19 08/30/24 14:08 Respiratory Effort Normal 08/29/24 16:30 Respiratory Depth Normal 08/29/24 16:30 Respiratory Pattern Normal 08/29/24 16:30 Blood Pressure 72/43 L 08/30/24 14:08 Blood Pressure Mean 53 08/30/24 14:08 Blood Pressure Position Supine 08/29/24 16:30 Pulse Oximetry 100 08/30/24 14:08 Oxygen Delivery Method Nasal Cannula 08/30/24 09:24 Oxygen Flow Rate 2 08/30/24 00:45 Pain Level 5 08/29/24 16:30 Intake & Output 08/29/24 08/30/24 08/30/24 17:59 05:59 17:59 Intake Total 247.267 / 247.267 332.733 / 580.000 87.0 / 87.0 Output Total 540 / 540 350 / 890 400 / 400 Balance -292.733 / -292.733 -17.267 / -310.000 -313.0 / -313.0 Weight 191 lb 5.78 oz Intake: IV 247.267 / 247.267 332.733 / 580.000 87.0 / 87.0 Output: Urine 540 / 540 350 / 890 400 / 400 Other: Urine Color Yellow Yellow Urine Appearance Clear Clear Urine Odor Normal Normal Data Completed and Pending Labs on day of discharge: Labs from last 24 hours 08/30/24 14:32: APTT Pending 08/30/24 07:25: APTT 54.9 H, Troponin I > 62770 H* 08/30/24 04:32: WBC 12.85 H, RBC 2.78 L, Hgb 9.6 L, Hct 29.6 L, MCV 107 H, MCH 34.5 H, MCHC 32.4, RDW 14.2 H, Plt Count 248, MPV 9.4, Sodium 138, Potassium 3.7, Chloride 98, Carbon Dioxide 31.7, Anion Gap 8.3, BUN 40 H, Creatinine 1.4 H, Est GFR (CKD-EPI 2020) 50.18, Glucose 106, Calcium 8.9, [place] I [address] H* 08/30/24 01:25: APTT 51.3 H, Sodium 138, Potassium 4.2, Chloride 99, Carbon Dioxide 33.8 H, Anion Gap 5.2, BUN 42 H, Creatinine 1.6 H, Est GFR (CKD-EPI 2020) 42.75, Glucose 124 H, Calcium 9.0, [place] I [address] H* 08/30/24 00:14: APTT 36.5 H, Sodium 137, Potassium 4.5 D, Chloride 99, Carbon Dioxide 30.8, Anion Gap 7.2, BUN 43 H, Creatinine 1.5 H, Est GFR (CKD-EPI 2020) 46.19, Glucose 167 H, Calcium 9.1, Magnesium 2.0 08/29/24 22:10: [place] [address] H* 08/29/24 19:28: Troponin I 8531 H* 08/29/24 16:09: APTT 96.0 H* Preliminary micro results at discharge 08/29/24 08:38 Blood Blood Culture - Preliminary NO GROWTH 24 HOURS 08/29/24 08:40 Blood Blood Culture - Preliminary NO GROWTH 24 HOURS PFSH All Active Problems (Updated 08/29/24 @ 10:15 by Kennedy Mccurdy MD) Back pain, thoracic (Acute) Acute non-ST elevation myocardial infarction (NSTEMI) (Acute) Medical History Hypothyroid Hyperlipidemia CVA (cerebral vascular accident) CAD (coronary artery disease) Diabetes HTN (hypertension) Surgical History History of heart artery stent S/P CABG (coronary artery bypass graft) S/P carotid endarterectomy Social History Smoking/Tobacco Use Status: Never Smoking risk assessment performed?: Yes Alcohol Intake: never Drug use: Never Substance use type: does not use Housing: house Do you feel safe at home: Yes Do you feel safe in your relationship?: Yes Time Spent with Patient Time Spent with Patient: <45 minutes Time was spent: preparing to see the patient(eg.review tests), obtaining and/or reviewing separately otained hiistory, ordering medications,tests, procedures, referring, communicating with other health career technical education teacher, indepentently interpreting results, counseling the patient and care coordination
[2024-08-30] MEDS: Normal Saline 500 ML 1000 ML IV (14:44)
[2024-08-30 15:14] LABS: PTT Activated 61.7 sec (20.6-30.2)
--- NOTE | 2024-08-31 15:24 | NUR.NOTE ---
Access chart by mistake, wrong patient to reconcile EKG orders and EKGs in [facility]. Nursing Note:
== END 2024-08-30 15:12 | disposition short-term general hospital (02) | DRG 282 ==
LOC: ER 16:14 → ICU 16:22
PROVIDERS: Family Medicine; Admitting Provider Family Medicine; Emergency Provider Emergency Medicine; PCP Family Medicine; Responsible Provider Family Medicine; Visit Provider Family Medicine
DX: I22.2 Subsequent non-ST elevation (NSTEMI) myocardial infarction (principal); I21.4 Non-ST elevation (NSTEMI) myocardial infarction; I25.10 Atherosclerotic heart disease of native coronary artery without angina pectoris; I10 Essential (primary) hypertension; E11.9 Type 2 diabetes mellitus without complications; E03.9 Hypothyroidism, unspecified; Z66 Do not resuscitate; E78.5 Hyperlipidemia, unspecified; M54.6 Pain in thoracic spine; Z95.1 Presence of aortocoronary bypass graft; Z79.4 Long term (current) use of insulin; Z79.899 Other long term (current) drug therapy; Z95.5 Presence of coronary angioplasty implant and graft; Z86.73 Personal history of transient ischemic attack (TIA), and cerebral infarction without residual deficits
CPT/HCPCS: 00123; 36415; 36416; 71275; 76604; 80048; 80053; 82805; 82962; 84145; 85027; 87040; 87637; 93005; 93308; 96365; 96366; 96375; 96376; 99291; 71045; 74174; 81003; 81015; 83735; 83880; 84443; 84484; 85025; 85610; 85730; 93010; 99223; 99239; J1171; J1644; J1815; J1938; J2305; J3010; J3480; J3490; J7512

== ENCOUNTER 2024-10-22 18:26 | Outpatient (REF) | payer MEDICARE, SELFPAY ==
[2024-10-22 16:03] LABS: Abs Immature Grans 0.20 10^3/uL (0.0-0.06); HCT 36.8 % (40.0-50.0); HGB 12.3 g/dL (13.5-17.5); Immature Grans % 1.2 %; MCH 34.6 pg (27.0-33.0); MCHC 33.4 % (32.0-36.0); MCV 103 fL (80-95); MPV 9.5 fL (8.0-11.0); Platelet Count 312 10^3/uL (130-400); RBC 3.56 10^6/uL (4.36-5.78); RDW 15.5 % (11.8-14.1); RDW-SD 58.2 fL; WBC 16.99 10^3/uL (4.4-10.8)
[2024-10-22 16:47] LABS: Hemoglobin A1C 6.4 % (<5.7)
[2024-10-22 16:50] LABS: ALT 23 U/L (16-63); AST 25 U/L (15-37); Albumin 3.3 g/dL (3.4-5.0); Alkaline Phosphatase 44 U/L (46-116); Anion Gap 10.2 mmol/L (3-11); BUN 20 mg/dL (7-18); Bilirubin, Total 0.8 mg/dL (0.2-1.0); CO2 26.8 mmol/L (21.0-32.0); Calcium 9.8 mg/dL (8.5-10.1); Chloride 99 mmol/L (98-107); Estimated GFR 75.14 (mL/min/1.73m2); Glucose 98 mg/dL (74-106); Magnesium 1.9 mg/dL (1.8-2.4); Potassium 4.6 mmol/L (3.5-5.1); Sodium 136 mmol/L (136-145); Total Protein 6.4 g/dL (6.4-8.2)
[2024-10-22 16:55] LABS: Vitamin D 25 Total 121 ng/mL (30-100)
[2024-10-22 17:09] LABS: Creatine Kinase 53 U/L (39-308)
== END 2024-10-22 18:27 | disposition home or self-care (01) ==
LOC: NCHCN 18:26
PROVIDERS: PCP Family Medicine; Visit Provider Family Medicine
DX: I50.20 Unspecified systolic (congestive) heart failure (principal); E11.69 Type 2 diabetes mellitus with other specified complication; E67.3 Hypervitaminosis D; G73.7 Myopathy in diseases classified elsewhere; J18.9 Pneumonia, unspecified organism
CPT/HCPCS: 80053; 82306; 82550; 83036; 83735; 85025

== ENCOUNTER 2024-11-03 22:08 | Emergency (ER) | payer MEDICARE, SELFPAY ==
--- NOTE | 2024-11-03 22:15 | DI.CT_ITS ---
Exam(s) CT HEAD CERVICAL SPINE WO EXAM: CT HEAD CERVICAL SPINE WO CLINICAL HISTORY: fall from standing, on AC, no new neuro deficts. TECHNIQUE: Imaging Protocol: Axial computed tomography images with coronal and sagittal reformatted images were created and reviewed COMPARISON: CT HEAD AND CSPINE W/O CONTRAST from 10/24/2017 FINDINGS: BRAIN: There are no skull fractures nor fluid in the visualized paranasal sinuses. There is no evidence of intracranial hemorrhage, mass effect, or shift of midline structures. There are no extra-axial fluid collections. The ventricles are not enlarged or shifted and there is no blood within the ventricular system nor within the basal cisterns. In the left side of the posterior fossa there is asymmetric CSF space lateral to the left cerebellar hemisphere, unchanged. This may be an arachnoid cyst or may represent exaggerated CSF space due to left cerebellar hemisphere under development CERVICAL SPINE: There is no evidence of fracture nor listhesis. No significant prevertebral soft tissue swelling. There is some disc space narrowing at C6-7 level and small Luschka joint osteophytes at this level. There is multilevel facet arthropathy. There is no significant facet joint malalignment. No significant osseous lesions evident. IMPRESSION: No acute intracranial findings on this noninfused CT scan of the brain.Asymmetry in the left posterior fossa as described above, but unchanged from October 2017. No evidence of cervical spine fracture, malalignment, nor acute compromise of the cervical spinal canal. Preliminary virtual Radiology report was reviewed. RADIATION DOSE DELIVERED: 1,251.78mGy.cm Total DLP DATA REPOSITORY: All CT scans at this facility are submitted to the National Radiology Data Registry (NRDR) Dose Index Registry (DIR) with the [employer] ([employer]). RADIATION OPTIMIZATION: All CT scans at this facility use at least one of these dose optimization techniques: automated exposure control; mA and/or kV adjustment per patient size (includes targeted exams where dose is matched to clinical indication); or iterative reconstruction.
[2024-11-03 22:17] VITALS: BP 122/65; PULSE 74; RESP 20; TEMP 36.7; O2SAT 95
--- NOTE | 2024-11-03 22:40 | W.ED.GENAD ---
Discharge Plan Disposition Patient Disposition: Home Condition: Good Discharge Details Clinical Impression: Fall Primary Care Provider: Gardenia Smyth ED Provider: Francy Andrade Home Meds and New Rx's Prescriptions: Continued albuterol sulfate 90 mcg/actuation HFA aerosol inhaler 2 inh inhalation .Q4-6 hrs PRN (Reason: shortness of breath or wheezing) Qty: 8.5 0RF guaifenesin [Mucinex] 600 mg tablet extended release 12hr 600 mg PO Q12H PRN (Reason: congestion) Qty: 30 0RF azathioprine 50 MG tablet 150 mg PO DAILY clopidogrel [Plavix] 75 MG tablet 75 mg PO DAILY aspirin [Aspir-81] 81 MG tablet,delayed release (DR/EC) 81 mg PO DAILY levothyroxine 100 MCG tablet 100 mcg PO DAILY methotrexate sodium 2.5 MG tablet 15 mg PO DIRECTED nitroglycerin [Nitrostat] 0.4 MG tablet, sublingual 0.4 mg Sublingual DIRECTED PRN folic acid 1 MG tablet 1 mg PO DAILY dorzolamide-timolol 10 ML drops 10 ml OD BID Complete Senior 1 EACH tablet 1 ea PO DAILY cholecalciferol (vitamin D3) 1,000 UNIT tablet 1,000 unit PO BID acetaminophen [Tylenol] 325 MG tablet 650 mg PO Q4H PRN PRN0RF ipratropium-albuterol 3 ML solution for nebulization 3 ml UPD Q6H PRN PRN0RF polyethylene glycol 3350 17 GM powder in packet 17 gm PO DAILY PRN PRN (Reason: Constipation) 0RF docusate sodium [Colace] 100 MG capsule 100 mg PO TID PRN PRN0RF alum-mag hydroxide-simeth [Mag-Al Plus] 30 ML suspension 30 ml PO Q2H PRN PRN0RF insulin aspart U-100 [Novolog FlexPen U-100 Insulin] 300 UNITS/3 ML insulin pen 0 units Sub-Q 0800,1200,1700 0RF Humulin N NPH U-100 Insulin 100 UNIT/ML suspension 100 unit SQ DIRECTED Qty: 0 0RF Patient Comments: sliding scale Rx Instructions: CURRENTLY ON HOLD metformin 500 mg tablet 1 tab PO BID gabapentin 100 mg capsule 1 cap PO TID Patient Comments: TAKE ONE CAPSULE BY MOUTH THREE TIMES A DAY FOR NECK AND ARM PAIN /TINGLING metoprolol succinate 25 mg tablet extended release 24 hr 1 tab PO DAILY diclofenac sodium 1 % gel 1 applic TOPICAL BID pantoprazole 40 mg tablet,delayed release (DR/EC) 40 mg PO QAM losartan 100 mg tablet 100 mg PO DAILY isosorbide mononitrate 30 mg tablet extended release 24 hr 30 mg PO DAILY furosemide 40 mg tablet 40 mg PO DAILY Patient Comments: TAKE ONE TABLET BY MOUTH EVERY DAY prednisone 10 mg tablet 10 mg PO DAILY diazepam 5 mg tablet 5 mg PO TID PRN (Reason: muscle spasm) Qty: 10 0RF Discharge Instructions Instructions: Head injury in adults, Preventing Falls ED Additional Instructions: Call your primary care doctor in the morning to schedule an appointment for within the next 72 hours to followup on your visit here. Return to the emergency department for new or worsening symptoms including severe headache, vomiting, numbness, new weakness, or if you have any other concerns. HPI General Mode of arrival: EMS. Date/Time Provider Initiated Documentation: 11/03/24 22:18. Limitations to Documentation: no limitations. Information obtained by: patient. HPI Narrative: 84yo M with hx HTN, DM, CAD s/p CABG, CVA, hypothyroid, on AC, presenting after fall from standing. Has weakness in his bilateral LE at baseline, uses walker. Today lost his balance and fell over to the right side, striking his head. Does not think he lost consciousness. No lightheadeness or presyncope prior to the fall. Has a dull frontal headache currently which has been improving since onset. No neck pain, nausea, vomiting, numbness, new weakness, vision changes, or vertigo. Denies pain elsewhere including chest, pelvic, abdominal, or extremity pain. He is otherwise in he usual state of health. Related Data Home Medications ?Medication ?Instructions ?Recorded ?Confirmed aspirin 81 mg tablet,delayed 81 mg PO DAILY 10/24/17 11/03/24 release (Aspir-) azathioprine 50 mg tablet 150 mg PO DAILY 10/24/17 11/03/24 cholecalciferol (vitamin D3) 25 1,000 unit PO BID 10/24/17 11/03/24 mcg (1,000 unit) tablet clopidogrel 75 mg tablet (Plavix) 75 mg PO DAILY 10/24/17 11/03/24 dorzolamide 22.3 mg-timolol 6.8 10 ml OD BID 10/24/17 11/03/24 mg/mL eye drops folic acid 1 mg tablet 1 mg PO DAILY 10/24/17 11/03/24 geriatric [id number] 1 ea PO DAILY 10/24/17 11/03/24 (Complete Senior tablet) levothyroxine 100 mcg tablet 100 mcg PO DAILY 10/24/17 11/03/24 methotrexate sodium 2.5 mg tablet 15 mg PO DIRECTED 10/24/17 11/03/24 nitroglycerin 0.4 mg sublingual 0.4 mg sublingual DIRECTED PRN 10/24/17 08/29/24 tablet (Nitrostat) acetaminophen 325 mg tablet 650 mg (2 x 325 mg) PO Q4H PRN PRN 10/26/17 11/03/24 (Tylenol) aluminum-mag hydroxide-simethicone 30 ml PO Q2H PRN PRN 10/26/17 11/03/24 200 mg-200 mg-20 mg/5 mL oral susp (Mag-Al Plus) docusate sodium 100 mg capsule 100 mg PO TID PRN PRN 10/26/17 11/03/24 (Colace) insulin NPH isoph U-100 human 100 100 unit SQ DIRECTED ##0 10/26/17 11/03/24 unit/mL subcutaneous suspension (Humulin N NPH U-100 Insulin (isophane susp)) insulin aspart U-100 100 unit/mL 0 units subcut 0800,1200,1700 10/26/17 11/03/24 (3 mL) subcutaneous pen (Novolog FlexPen U-100 Insulin aspart) ipratropium 0.5 mg-albuterol 3 mg 3 ml UPD Q6H PRN PRN 10/26/17 11/03/24 (2.5 mg base)/3 mL nebulization soln polyethylene glycol 3350 17 gram 17 gm PO DAILY PRN PRN Constipation 10/26/17 11/03/24 oral powder packet diclofenac sodium 1 % topical gel 1 applic topical BID 04/19/22 11/03/24 gabapentin 100 mg capsule 1 cap PO TID 04/19/22 11/03/24 metformin 500 mg tablet 1 tab PO BID 04/19/22 11/03/24 metoprolol succinate 25 mg 1 tab PO DAILY 04/19/22 11/03/24 tablet,extended release 24 hr diazepam 5 mg tablet 5 mg PO TID PRN muscle spasm #10 04/23/22 11/03/24 tabs isosorbide mononitrate 30 mg 30 mg PO DAILY 08/24/24 11/03/24 tablet,extended release 24 hr losartan 100 mg tablet 100 mg PO DAILY 08/24/24 11/03/24 pantoprazole 40 mg tablet,delayed 40 mg PO QAM 08/24/24 11/03/24 release furosemide 40 mg tablet 40 mg PO DAILY 08/29/24 11/03/24 prednisone 10 mg tablet 10 mg PO DAILY 08/30/24 11/03/24 albuterol sulfate 90 mcg/actuation 2 inh inhalation .Q4-6 hrs PRN 10/26/24 11/03/24 aerosol inhaler shortness of breath or wheezing #8.5 grams guaifenesin 600 mg tablet, 600 mg PO Q12H PRN congestion #30 10/26/24 11/03/24 extended release 12 hr (Mucinex) tabs Previous Rx's ?Medication ?Instructions ?Recorded acetaminophen 325 mg tablet 650 mg (2 x 325 mg) PO Q4H PRN PRN 10/26/17 (Tylenol) aluminum-mag hydroxide-simethicone 30 ml PO Q2H PRN PRN 10/26/17 200 mg-200 mg-20 mg/5 mL oral susp (Mag-Al Plus) docusate sodium 100 mg capsule 100 mg PO TID PRN PRN 10/26/17 (Colace) insulin NPH isoph U-100 human 100 100 unit SQ DIRECTED ##0 10/26/17 unit/mL subcutaneous suspension (Humulin N NPH U-100 Insulin (isophane susp)) insulin aspart U-100 100 unit/mL 0 units subcut 0800,1200,1700 10/26/17 (3 mL) subcutaneous pen (Novolog FlexPen U-100 Insulin aspart) ipratropium 0.5 mg-albuterol 3 mg 3 ml UPD Q6H PRN PRN 10/26/17 (2.5 mg base)/3 mL nebulization soln polyethylene glycol 3350 17 gram 17 gm PO DAILY PRN PRN Constipation 10/26/17 oral powder packet diazepam 5 mg tablet 5 mg PO TID PRN muscle spasm #10 04/23/22 tabs albuterol sulfate 90 mcg/actuation 2 inh inhalation .Q4-6 hrs PRN 10/26/24 aerosol inhaler shortness of breath or wheezing #8.5 grams guaifenesin 600 mg tablet, 600 mg PO Q12H PRN congestion #30 10/26/24 extended release 12 hr (Mucinex) tabs Allergies Allergy/AdvReac Type Severity Reaction Status Date / Time atorvastatin (From Lipitor) Allergy Unknown Verified 11/03/24 22:23 General Stated Complaint: Fall/Non TraumaCriteria KLEBER: 3 Review of Systems Narrative: see HPI Exam Narrative Exam Narrative: GENERAL: Alert, no acute distress. SKIN: Warm and well perfused. HEAD: Echymosis to right episcopal and cheek. Facial bones without deformities or tenderness. 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 Left pupil reactive. No scleral icterus or conjunctival injection. Extraocular muscles intact without nystagmus. No proptosis or enophthalmos. EARS: Normal appearing pinnae. No hemotympanum. NOSE: No discharge, tenderness, laxity. No nasal septal hematoma. MOUTH: No malocclusion or trismus. Moist mucus membranes without blood. Posterior pharynx without erythema or exudate. NECK: Trachea midline. No discolorations or edema. No midline cervical tenderness. Full pain free ROM at c-spine with flexion, extension, lateral rotation CV: Regular rate and rhythm, Normal s1 and s2. No murmurs, rubs, or gallops. PV: Radial pulses 2+ bilaterally and symmetric. Dorsalis pedis pulses 2+ bilaterally and symmetric. 2+ capillary refill. No extremity edema. CHEST: No abrasions or ecchymosis. Chest symmetric with respirations. No chest wall tenderness. No crepitus. No step offs. Lungs are clear to auscultation bilaterally. ABDOMEN: No ecchymosis or abrasions. Soft, nondistended, nontender. BACK: No abrasions, skin openings, or ecchymosis. Spine without bony tenderness, no step offs. Mepilex to sacrum, no evident pressure ulcer or skin breakdown underneath. Brief in place, erythema to lower buttocks/perineal area. PELVIC: Pelvis stable, nontender to lateral compression MSK: No gross deformities. Scattered echymosis various stages all extremities. Small skin tear x 2 right elbow. Abrasion and echymosis lower anterior right knee, no effusion. Tolerates full range of motion of extremities without tenderness. Neuro: ? GCS 15.? 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 Left pupil reactive. ? EOMI.? Fluent speech, no dysarthria. Motor- 5/5 strength symmetric bilateral upper extremities including shoulder abductors/adductors, elbow flexors/extensors, wrist flexors/extensors, finger abductors/adductor. 2/5 bilateral hipflexors, 4/5 bilateral knee flexors/extensors, 5/5 ankle dorsiflexors and planter flexors. 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 Left pupil reactive. ? III, IV, : EOM intact, no gaze preference or deviation, no nystagmus. V: normal sensation in V1, V2, and V3 segments bilaterally VII: no asymmetry, no nasolabial fold flattening VIII: BISHOP PAIUTE IX, X: normal palatal elevation, no uvular deviation XI: 5/5 head turn and 5/5 shoulder shrug bilaterally XII: midline tongue protrusion Course Vital Signs Vital signs: Vital Signs Temperature 36.7 C 11/03/24 22:17 Pulse 74 11/03/24 22:17 Respiratory Rate 20 11/03/24 22:17 Blood Pressure 122/65 11/03/24 22:17 Pulse Oximetry 95 11/03/24 22:17 Temperature 36.7 C 11/03/24 22:17 Temperature Source Oral 11/03/24 22:17 Pulse 74 11/03/24 22:17 Respiratory Rate 20 11/03/24 22:17 Blood Pressure 122/65 11/03/24 22:17 Blood Pressure Position Supine 11/03/24 22:17 Pulse Oximetry 95 11/03/24 22:17 Oxygen Delivery Method Room Air 11/03/24 22:17 Oxygen Flow Rate 0 11/03/24 22:17 Pain Level 2 11/03/24 22:17 Medical Decision Making 84yo M with hx HTN, DM, CAD s/p CABG, CVA, hypothyroid, on AC, presenting after fall from standing. Has weakness in his bilateral LE at baseline, uses walker. Today lost his balance and fell over to the right side, striking his head. Vital signs reassuring on arrival. Overall reassuring trauma exam; some echymosis to right episcopal and cheek as well as right knee (no knee pain or effusion). Diminished strength hip flexors which patient report is unchanged for him, otherwise reassuring neurologic exam. Skin tears to right arm dressed; do not require sutures. No indication for labs or body imaging; given that he is AC will get CT head. Given tylenol for headache. CT head and c spine independently reviewed, no ICH or displaced fracture on my view, radiology read with no acute findings. On reassessment patient remains well appearing with reassuring vital signs. Reports headache resolved. Able to ambulate steadily independently with walker with short steps (locks his knees to get up and walk). Request discharge home which is reasonable. Discharged; discharge instructions and return precautions were reviewed with patient who verbalized understanding. All questions were answered and he is in full agreement with the plan. Quality:SDOH Health Related Social Needs: Health related social needs risk of homeless material hardship Health related social needs details none stated PFSH All Active Problems (Updated 11/04/24 @ 01:24 by Francy Andrade MD) Fall (Acute) Back pain, thoracic (Acute) Acute non-ST elevation myocardial infarction (NSTEMI) (Acute) Medical History (Updated 11/04/24 @ 01:24 by Francy Andrade MD) Palliative care encounter Hypothyroid Hyperlipidemia CVA (cerebral vascular accident) CAD (coronary artery disease) Diabetes HTN (hypertension) Surgical History History of heart artery stent S/P CABG (coronary artery bypass graft) S/P carotid endarterectomy Social History Smoking/Tobacco Use Status: Never Smoking risk assessment performed?: Yes Alcohol Intake: never Drug use: Never Substance use type: does not use Housing: house Do you feel safe at home: Yes Do you feel safe in your relationship?: Yes
[2024-11-03] MEDS: Acetaminophen 500 MG TAB 1000 MG PO (23:16)
--- NOTE | 2024-11-03 23:28 | DI.VRAD_ITS ---
PROCEDURE INFORMATION: Exam: CT Head Without Contrast Exam date and time: 11/03/2024 10:21 PM Age: 84 years old Clinical indication: Injury or trauma; Blunt trauma (contusions or hematomas); Fall from standing, on ac, no new neuro deficts TECHNIQUE: Imaging protocol: Computed tomography of the head without contrast. COMPARISON: No relevant prior studies available. FINDINGS: Brain: Normal. No hemorrhage. Unremarkable white matter. No mass effect. Cerebral ventricles: No ventriculomegaly. Paranasal sinuses: Visualized sinuses are unremarkable. No fluid levels. Mastoid air cells: Visualized mastoid air cells are well aerated. Bones: Unremarkable. No acute fracture. Soft tissues: Unremarkable. IMPRESSION: Normal unenhanced CT scan of the brain. PROCEDURE INFORMATION: Exam: CT Cervical Spine Without Contrast Exam date and time: 11/03/2024 10:21 PM Age: 84 years old Clinical indication: Injury or trauma; Blunt trauma (contusions or hematomas); Fall from standing, on ac, no new neuro deficts TECHNIQUE: Imaging protocol: Computed tomography of the cervical spine without contrast. COMPARISON: CT THORAX ABD/PEL CTA 08/29/2024 9:17 AM FINDINGS: Bones: Normal alignment of the cervical vertebral bodies and discs. No acute fracture. Mild spondylosis without spondylolysis or spondylolisthesis. No central spinal stenosis or cord compression. Mild neural foraminal narrowing identified at several levels secondary to uncovertebral joint and facet joint arthropathy. Lungs: Lung apices are normal. Soft tissues: Unremarkable. IMPRESSION: 1. No acute fracture. 2. Mild spondylosis without underlying spinal stenosis or cord compression. Dictated and Authenticated by: Kuldeep Gonzalez MD. Orderin Lupe Sen MD
[2024-11-04 00:31] VITALS: BP 138/52; PULSE 63; RESP 16; TEMP 36.5; O2SAT 100
--- NOTE | 2024-11-04 00:41 | NUR.NOTE ---
PT ambulated in hallway 22 yrds by tech. PT ambulated with walker. PT was able to ambulate Nursing Note:
[2024-11-04 01:30] VITALS: BP 138/52; PULSE 63; RESP 16; TEMP 36.5; O2SAT 100
== END 2024-11-04 01:30 | disposition home or self-care (01) ==
PROVIDERS: Emergency Provider Student in an Organized Health Care Education/Training Program; PCP Family Medicine
DX: S00.83XA Contusion of other part of head, initial encounter (principal); S80.01XA Contusion of right knee, initial encounter; S41.111A Laceration without foreign body of right upper arm, initial encounter; I25.10 Atherosclerotic heart disease of native coronary artery without angina pectoris; E11.9 Type 2 diabetes mellitus without complications; I10 Essential (primary) hypertension; E78.5 Hyperlipidemia, unspecified; E03.9 Hypothyroidism, unspecified; Z95.5 Presence of coronary angioplasty implant and graft; Z95.1 Presence of aortocoronary bypass graft; Z79.01 Long term (current) use of anticoagulants; Z79.4 Long term (current) use of insulin; Z79.82 Long term (current) use of aspirin; Z79.84 Long term (current) use of oral hypoglycemic drugs; W01.190A Fall on same level from slipping, tripping and stumbling with subsequent striking against furniture, initial encounter; Y93.89 Activity, other specified; Y92.89 Other specified places as the place of occurrence of the external cause
CPT/HCPCS: 99284; 70450; 72125

== ENCOUNTER 2025-01-07 01:31 | Outpatient (CLI) | payer MEDICARE, SELFPAY ==
[2025-01-07 12:38] LABS: Abs Immature Grans 0.16 10^3/uL (0.0-0.06); HCT 41.2 % (40.0-50.0); HGB 13.3 g/dL (13.5-17.5); Immature Grans % 1.6 %; MCH 32.1 pg (27.0-33.0); MCHC 32.3 % (32.0-36.0); MCV 100 fL (80-95); MPV 9.5 fL (8.0-11.0); Platelet Count 251 10^3/uL (130-400); RBC 4.14 10^6/uL (4.36-5.78); RDW 15.6 % (11.8-14.1); RDW-SD 57.1 fL; WBC 10.14 10^3/uL (4.4-10.8)
[2025-01-07 12:41] LABS: ESR 9 mm/hr (0-20)
[2025-01-07 14:20] LABS: ALT 16 U/L (16-63); AST 14 U/L (15-37); Albumin 3.6 g/dL (3.4-5.0); Alkaline Phosphatase 56 U/L (46-116); Anion Gap 9.5 mmol/L (3-11); BUN 34 mg/dL (7-18); Bilirubin, Total 0.5 mg/dL (0.2-1.0); CO2 35.5 mmol/L (21.0-32.0); Calcium 10.0 mg/dL (8.5-10.1); Chloride 97 mmol/L (98-107); Estimated GFR 54.85 (mL/min/1.73m2); Glucose 183 mg/dL (74-106); Magnesium 2.5 mg/dL (1.8-2.4); Potassium 4.0 mmol/L (3.5-5.1); Sodium 142 mmol/L (136-145); Total Protein 7.3 g/dL (6.4-8.2)
[2025-01-07 16:59] LABS: C-Reactive Protein 0.51 mg/dL (<or=0.5)
[2025-01-07 18:17] LABS: Creatine Kinase 77 U/L (39-308)
[2025-01-15 16:24] LABS: Absolute CD16+CD56 24 Cells/uL (108-680); CD16+CD56 3 % (5-31); CD19 <1 % (5-25); CD3 96 % (56-84); CD4 62 % (31-64); CD8 34 % (9-39); Total CD3 853 Cells/uL (840-2,669)
[2025-02-01 03:10] LABS: Anti-Jo-1 Ab <20 Units (<20); Anti-Ku Ab Negative (Negative); Anti-MDA-5 Ab (CADM-140) <20 Units (<20); Anti-NXP-2 (P140) Ab <20 Units (<20); Anti-PM/Scl-100 Ab <20 Units (<20); Anti-SAE1 Ab, IgG <20 Units (<20); Anti-SS-A 52kD Ab, IgG <20 Units (<20); Anti-TIF-1gamma Ab <20 Units (<20); Anti-U2 RNP Ab Negative (Negative); Anti-U3 RNP (Fibrillarin) Negative (Negative)
== END 2025-01-07 01:32 ==
LOC: LBO 01-08 01:31
PROVIDERS: PCP Family Medicine; Visit Provider Family Medicine
DX: M60.80 Other myositis, unspecified site (principal)
CPT/HCPCS: 36415; 80053; 82550; 83516; 83520; 85652; 86235; 82085; 82784; 82787; 83735; 85025; 86140; 86355; 86357; 86359; 86360

== ENCOUNTER → 2025-01-14 14:30 | Outpatient (BNVA) | payer MEDICARE, SELFPAY | PROVIDERS: PCP Family Medicine; Referring Provider Family Medicine; Visit Provider Podiatrist | DX: L60.2 Onychogryphosis (principal); L60.0 Ingrowing nail; B35.1 Tinea unguium; I73.89 Other specified peripheral vascular diseases; R60.0 Localized edema; M79.671 Pain in right foot; M79.672 Pain in left foot; E11.59 Type 2 diabetes mellitus with other circulatory complications; I10 Essential (primary) hypertension; R09.89 Other specified symptoms and signs involving the circulatory and respiratory systems; L65.9 Nonscarring hair loss, unspecified; R23.8 Other skin changes; R23.4 Changes in skin texture; L85.8 Other specified epidermal thickening; L60.8 Other nail disorders | CPT/HCPCS: 99214; 11721 ==

== ENCOUNTER 2025-03-19 08:11 | Outpatient (CLI) | payer MEDICARE, SELFPAY ==
[2025-03-19 11:48] LABS: Abs Immature Grans 0.15 10^3/uL (0.0-0.06); ESR 5 mm/hr (0-20); HCT 40.8 % (40.0-50.0); HGB 12.7 g/dL (13.5-17.5); Immature Grans % 1.6 %; MCH 30.4 pg (27.0-33.0); MCHC 31.1 % (32.0-36.0); MCV 98 fL (80-95); MPV 9.7 fL (8.0-11.0); Platelet Count 212 10^3/uL (130-400); RBC 4.18 10^6/uL (4.36-5.78); RDW 14.2 % (11.8-14.1); RDW-SD 49.8 fL; WBC 9.66 10^3/uL (4.4-10.8)
[2025-03-19 12:55] LABS: C-Reactive Protein < 0.50 mg/dL (<=0.50)
[2025-03-19 12:57] LABS: Creatine Kinase 55 U/L (46-171)
[2025-03-19 12:58] LABS: ALT 10 U/L (10-49); AST 14 U/L (<34); Albumin 4.2 g/dL (3.2-5.0); Alkaline Phosphatase 40 U/L (46-116); Anion Gap 11.5 mmol/L (3-11); BUN 27 mg/dL (9-23); Bilirubin, Total 0.50 mg/dL (0.2-1.2); CO2 31.6 mmol/L (20.0-31.0); Calcium 9.6 mg/dL (8.3-10.6); Chloride 95 mmol/L (98-107); Glucose 184 mg/dL (74-106); Potassium 4.6 mmol/L (3.5-5.1); Sodium 138 mmol/L (136-145); Total Protein 6.9 g/dL (5.7-8.2)
[2025-03-19 12:59] LABS: TSH 0.55 uIU/mL (0.55-4.78)
== END 2025-03-19 08:12 | disposition home or self-care (01) ==
LOC: LBO 08:11
PROVIDERS: PCP Family Medicine; Visit Provider Internal Medicine
DX: M60.80 Other myositis, unspecified site (principal)
CPT/HCPCS: 36415; 80053; 82550; 85652; 82085; 84443; 85025; 86140

== ENCOUNTER 2025-04-03 01:42 | Outpatient (CLI) | payer MEDICARE, SELFPAY ==
[2025-04-03 15:24] LABS: Hemoglobin A1C 7.1 % (<5.7)
[2025-04-03 15:43] LABS: Vitamin B12 327 pg/mL (211-911)
[2025-04-03 15:44] LABS: TSH 0.45 uIU/mL (0.55-4.78)
[2025-04-07 14:14] LABS: Albumin 60.7 % (55.8-66.1); Albumin g/dL 4.0 g/dL (3.6-5.2); Alpha 1 g/dL 0.30 g/dL (0.15-0.40); Alpha 2 g/dL 1.00 g/dL (0.50-1.00); Beta g/dL 0.80 g/dL (0.60-1.20); Gamma g/dL 0.60 g/dL (0.60-1.60); Total Protein 6.6 g/dL (6.3-8.2)
[2025-04-07 17:22] LABS: Pyridoxal 5-Phosphate (PLP), P 5 mcg/L (5-50)
[2025-04-07 18:11] LABS: HMG-CoA Reductase Ab 33.0 CU (<20.0)
== END 2025-04-03 01:43 | disposition home or self-care (01) ==
PROVIDERS: Student in an Organized Health Care Education/Training Program; PCP Family Medicine; Visit Provider Internal Medicine
DX: M60.80 Other myositis, unspecified site (principal); G62.9 Polyneuropathy, unspecified
CPT/HCPCS: 36415; 80186; 82397; 82784; 82607; 83036; 84155; 84165; 84207; 84443; 86320